=== PATIENT | female | born 2005 | race Caucasian/White ===

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

== ENCOUNTER 2024-01-05 09:34 | Outpatient (CLI) | payer OTHER, MEDICAID, SELFPAY | END 2024-01-05 09:35 | disposition home or self-care (01) | LOC: ANHLAB 09:36 | PROVIDERS: PCP Pediatrics; Visit Provider Obstetrics & Gynecology | DX: N91.2 Amenorrhea, unspecified (principal) | CPT/HCPCS: 36415; 84702 ==

== ENCOUNTER 2024-01-08 11:08 | Outpatient (CLI) | payer OTHER, MEDICAID, SELFPAY | END 2024-01-08 11:09 | disposition home or self-care (01) | LOC: ANHLAB 11:09 | PROVIDERS: PCP Pediatrics; Visit Provider Obstetrics & Gynecology | DX: N91.2 Amenorrhea, unspecified (principal) | CPT/HCPCS: 36415; 84702 ==

== ENCOUNTER 2024-01-16 15:03 | Outpatient (CLI) | payer OTHER, MEDICAID, SELFPAY ==
--- NOTE | ~2024-01-16 | US_ITS ---
EXAMINATION: US OB <=14 wk fetus w TV DATE: 01/16/2024 15:34 INDICATION: Amenorrhea TECHNIQUE: Real-time pelvic ultrasound utilizing both a transvaginal and transabdominal probe was pe rformed. The interpreting radiologist was not present for the study. COMPARISON: None. FINDINGS: The uterus measures 8.6 x 4.4 x 6.2 cm. There is an intrauterine gestational sac. A yolk sac and fet al pole are identified. The crown rump length measures 8 mm, which correlates with an estimated gesta tional age of 6 weeks and 6 days. heart motion is identified measuring 134 beats per minute (bp m) by M-mode Doppler. The right ovary measures 3.1 x 1.8 x 2.9 cm. The left ovary measures 3.0 x 2.6 x 1.9 cm. 1.3 cm anech oic corpus luteum cyst in the left ovary. There is no free fluid in the pelvis. IMPRESSION: 1. Single living fetus with heart rate of 133 bpm. 2. Gestational age by ultrasound of 6 weeks 6 day(s) +/- 4 day(s) with ultrasound estimated date of delivery (KATHIE) of 09/04/2024. Reviewed, dictated and finalized at location A. IMPRESSION: 1. Single living fetus with heart rate of 133 bpm. 2. Gestational age by ultrasound of 6 weeks 6 day(s) +/- 4 day(s) with ultraso und estimated date of delivery (KATHIE) of 09/04/2024.
== END 2024-01-16 15:04 | disposition home or self-care (01) ==
LOC: MICIMG 15:04
PROVIDERS: PCP Obstetrics & Gynecology; Visit Provider Obstetrics & Gynecology
DX: N91.2 Amenorrhea, unspecified (principal); Z3A.01 Less than 8 weeks gestation of pregnancy
CPT/HCPCS: 76801; 76817

== ENCOUNTER 2024-02-19 13:25 | Outpatient (CLI) | payer OTHER, MEDICAID, SELFPAY ==
[2024-02-19 14:05] LABS: Basophils Percent Auto 0.2 % (0.2-1.2); Eosinophils Absolute Auto 0.1 K/mm3 (0-0.3); Hematocrit 39.9 % (37.0-47.0); Hemoglobin 13.1 g/dL (12.0-15.0); Immature Granulocyte Absolute 0.19 K/mm3 (0.00-0.031); Immature Granulocyte Percent A 1.6 % (0-0.5); Lymphocytes Absolute Auto 2.87 K/mm3 (0.9-3.2); Lymphocytes Percent Auto 24.7 % (18.3-44.2); Mean Corpuscular HGB Conc 32.8 g/dl (32-36); Mean Corpuscular Hemoglobin 29.6 pg (26-34); Mean Corpuscular Volume 90.1 fl (80-100); Mean Platelet Volume 9.6 fl (7.4-10.4); Monocytes Absolute Auto 0.8 K/mm3 (0.1-0.6); Monocytes Percent Auto 6.5 % (2.6-8.5); Neutrophils Absolute Auto 7.7 K/mm3 (1.3-6.7); Platelet Count Result 284 k/mm3 (150-375); Red Blood Count 4.43 M/mm3 (4.2-5.4); Red Cell Distribution Width 12.7 % (11.5-14.5); White Blood Count 11.6 K/mm3 (4.5-10.0)
[2024-02-19 14:57] LABS: HIV 1/2 Ab P24 Ag Result Negative (Negative)
[2024-02-19 15:24] LABS: Hepatitis B Surface Antigen Negative (Negative); Rubella IgG Antibody 51.5 IU/ML
[2024-02-20 13:17] LABS: Rapid Plasma Reagin Non-Reactive (NonReactive)
== END 2024-02-19 13:26 | disposition home or self-care (01) ==
PROVIDERS: PCP Obstetrics & Gynecology; Visit Provider Obstetrics & Gynecology
DX: N91.2 Amenorrhea, unspecified (principal)
CPT/HCPCS: 36415; 85025; 86592; 86644; 86703; 86747; 86762; 86787; 86850; 86900; 86901; 87077; 87086; 87186; 87340; G0432

== ENCOUNTER 2024-02-21 18:41 | Emergency (ER) | payer OTHER, MEDICAID, SELFPAY ==
--- NOTE | ~2024-02-21 | XR_ITS ---
CHEST RADIOGRAPH, PA AND LATERAL CLINICAL HISTORY: right chest wall pain . COMPARISON: 05/17/2023 and 07/03/2019 TECHNIQUE: PA and lateral views of the chest. FINDINGS The cardiomediastinal silhouette is unremarkable. Redemonstration of multiple right sided rib deformities. This is unchanged dating back to 2019. Additional findings within the right upper chest of bullous disease, also unchanged from 2020. The remainder of the lungs are clear. 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 The remainder of the lungs are clear. Reviewed, dictated and finalized at location A. IMPRESSION: Multiple right-sided rib deformities as well as right upper lobe bullous diseas e, unchanged from 2020. The remainder of the lungs are clear.
[2024-02-21 19:14] VITALS: BP 131/88; PULSE 104; RESP 18; TEMP 36.9; O2SAT 100
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
== END 2024-02-21 21:45 | disposition home or self-care (01) ==
PROVIDERS: Emergency Provider Preventive Medicine Aerospace Medicine; PCP Obstetrics & Gynecology
DX: O9A.211 Injury, poisoning and certain other consequences of external causes complicating pregnancy, first trimester (principal); R07.89 Other chest pain; Z3A.12 12 weeks gestation of pregnancy
CPT/HCPCS: 71046; 99283

== ENCOUNTER 2024-03-01 15:31 | Outpatient (CLI) | payer OTHER, MEDICAID, SELFPAY ==
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
== END 2024-03-01 15:32 | disposition home or self-care (01) ==
PROVIDERS: PCP Obstetrics & Gynecology; Visit Provider Chiropractor
DX: M54.2 Cervicalgia (principal)
CPT/HCPCS: 72052

== ENCOUNTER 2024-06-06 10:27 | Emergency (ER) | payer OTHER, SELFPAY ==
[2024-06-06] VITALS (8 sets, daily range): BP systolic 117–126; BP diastolic 68–75; PULSE 101–130; RESP 18–20; TEMP 36.8; O2SAT 97–100
--- NOTE | ~2024-06-06 | XR_ITS ---
EXAMINATION: XR chest 1V portable DATE: 06/06/2024 13:06 INDICATION: Cough. TECHNIQUE: A single frontal view of the chest was obtained. COMPARISON: Chest 2 views 02/21/2024 FINDINGS: There is no pneumonia, pleural effusion, or pneumothorax. The heart size is normal. Against seen are chronic right rib deformities. IMPRESSION: 1. No acute cardiopulmonary disease. Reviewed, dictated and finalized at location B. [employer]
[2024-06-06 13:11] LABS: Influenza A QL RT-PCR Negative (Negative); Influenza B QL RT-PCR Negative (Negative); RSV RNA, RT-PCR Negative (Negative); SARS-CoV-2 RNA PCR Negative (Negative)
[2024-06-06 13:33] LABS: Strep Group A RT-PCR NOT DETECTED (Negative)
--- NOTE | 2024-06-06 13:45 | ED.GENADULT ---
HPI - General Adult General Chief complaint: Shortness of Breath/Dyspnea Stated complaint: SOB,back pain, 6mo preg Time Seen by Provider: 06/06/24 12:42 History of Present Illness HPI narrative: Patient is a 18-year-old female who presents emergency department with chief complaint of cough. Patient reports that for the last several days she has been having a cough has been productive of sputum. The patient reports that she has had a sore throat runny nose reports that she had a family member that recently had pneumonia. Patient states that the symptoms have not been improving and she Dr. PARHAM and she is 27 weeks and they told her to come to the emergency department. Related Data Allergies Allergy/AdvReac Type Severity Reaction Status Date / Time levonorgestrel (From Plan B) Allergy Mild Itching Verified 06/03/24 15:18 Review of Systems Review of Systems: A 10 system review of systems was completed on the patient and is negative except for what is stated in the HPI. Nursing and ancillary documentation was reviewed. PMFSH Past Medical History Medical History UTI (urinary tract infection) Irregular periods Skin lesion Pancreatitis Family History Family History Grandparent Cancer of kidney paternal grandmother Social History Social History Smoking status: Never smoker Second hand tobacco smoke exposure: Yes Alcohol intake: never Substance use: never Substance use type: does not use Do You Feel Safe in your Home?: Yes Lack of Transportation: No Lack of Food: Never True Current Housing: I Have Housing Concerned About Future Housing: No Difficulty Paying Gas/Electric Bills: No Difficulty Paying for Meds: No Currently Unemployed: No Education: High School Diploma/GED Difficulty w/ Childcare or Family Care: No Living arrangements: with family Additional living arrangements comments: lives with parents Occupation/Education: occupation 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 HEAD: Normocephalic, atraumatic. EYES: PERRLA and EOMI. ENT: Nares clear, no rhinorrhea or epistaxis. Mucous membranes moist. NECK: Supple. CHEST: Clear to auscultation. No respiratory distress. HEART: Regular rate and rhythm. No murmur heard. Normal peripheral pulses. ABDOMEN: Soft, nontender, nondistended, normal active bowel sounds. EXTREMITIES: Normal range of motion. No edema. SKIN: Warm, dry, no rash. NEURO: No focal deficits. Alert and oriented x3. PSYCH: Normal mood and affect. Course Vital Signs Vital signs: Vital Signs Temperature 36.8 C 06/06/24 10:44 Pulse Rate 130 H 06/06/24 10:44 Respiratory Rate 20 06/06/24 10:44 Blood Pressure 126/75 06/06/24 10:44 Pulse Oximetry 100 06/06/24 10:44 Oxygen Delivery Room Air 06/06/24 10:44 Temperature 36.8 C 06/06/24 10:44 Pulse Rate 130 H 06/06/24 10:44 Respiratory Rate 20 06/06/24 10:44 Blood Pressure 126/75 06/06/24 10:44 Pulse Oximetry 100 06/06/24 10:44 Oxygen Delivery Room Air 06/06/24 10:44 Medical Decision Making MDM Narrative Medical decision making narrative: Differential diagnosis includes pneumonia, upper respiratory infection, strep pharyngitis Strep was negative COVID flu and RSV were negative Chest x-ray showed no focal infiltrate Vital Signs Vital Signs: Vital Signs Temperature 36.8 C 06/06/24 10:44 Pulse Rate 130 H 06/06/24 10:44 Respiratory Rate 20 06/06/24 10:44 Blood Pressure 126/75 06/06/24 10:44 Pulse Oximetry 100 06/06/24 10:44 Oxygen Delivery Room Air 06/06/24 10:44 Temperature 36.8 C 06/06/24 10:44 Pulse Rate 130 H 06/06/24 10:44 Respiratory Rate 20 06/06/24 10:44 Blood Pressure 126/75 06/06/24 10:44 Pulse Oximetry 100 06/06/24 10:44 Oxygen Delivery Room Air 06/06/24 10:44 Lab Data Labs: Lab Results 06/06/24 06/06/24 Range/Units 12:30 13:01 Influenza A (RT-PCR) Negative (Negative) Influenza B (RT-PCR) Negative (Negative) RSV (RT-PCR) Negative (Negative) SARS-CoV-2 RNA (RT-PCR) Negative (Negative) Group A Strep (PCR) Not detected (Negative) Discharge Plan Discharge Clinical Impression: Acute upper respiratory infection Patient Disposition: Home, Self-Care Condition: Stable Instructions: Antibiotic Form, Upper Respiratory Infection (ED) Patient Language: Danish Prescriptions: No Action acyclovir 400 mg tablet 400 mg PO TID Qty: 21 3RF nitrofurantoin macrocrystal [Macrodantin] 50 mg capsule 50 mg PO DAILY Qty: 90 1RF Rx Instructions: must administer with a meal/food azithromycin [Zithromax] 250 mg tablet See Rx Instructions PO .COMPLEX Qty: 6 0RF Rx Instructions: For 250 mg dose pack: take 500 mg today (day 1), then 250 mg for 4 days (days 2-5) PO Follow-up/Referrals: Jad Samson MD [Primary Care Provider] - Stand Alone Forms: Work/School Release IP Time of Disposition: 13:48
--- OUTSIDE RECORDS SUMMARY | 2024-06-07 05:06 | XMS_ITS | Clinical Summary ---
Author Organization [facility] Address [address] [place] [address] Care Team Providers Care Medical Practitioners Name Role Phone Douglas Shah MD Primary Care Provider [phone] Source Comments [facility],non-owned Affiliates and Associated Physician Practices is amultiple site organization consisting of ambulatory clinics and hospital sitesin [place], [place], [place] and [place]. This disclosure is being madepursuant to the Care Everywhere program and may not contain all information available regarding this patient. Last updated 18.[employer] Allergies No known active allergies Medications Be aware that medications may not be up to date on this document. Always verify current medications with the patient. No known medications Active Problems Problem Noted Date Diagnosed Date Acute pancreatitis 07/08/2010 Overview (07/11/2010): 4 yo with acute pancreatitis, no previous history of pancreatits. 1. Pain controlled - pt w/o pain med use overnight 4. Repeat lipase, amylase WNL 5. Abdominal US -- enlarged pancreatic head 6. Advanced to clears will cont. To advance diet as tolerated Hypercalcemia 07/08/2010 Overview (07/09/2010): 4 yo with mildly elevated Calcium will recheck level in am - ionized Ca WNL Constipation 07/08/2010 Overview (07/09/2010): 4 yo with constipation recently treated with laxatives. KUB from OSH with moderate amts of fecal material 1. Continue IVF for pancreatits, 2, Observe for BMs 3. Consider treating with miralax if abdominal pain persists and after pancreatitis resolves Family History Medical History Relation Name Comments Kidney Disease Sister Kidney reflux Relation Name Status Comments Sister Social History Tobacco Use Types Packs/Day Years Used Date Smoking Tobacco: Never Assessed Alcohol Use Standard Drinks/Week Comments No 0 (1 standard drink = 0.6 oz pur e alcohol) Sex and Gender Information Value Date Recorded Sex Assigned at Not on file Gender Identity Not on file Sexual Orientation Not on file Last Filed Vital Signs Vital Sign Reading Time Taken Comments Blood Pressure 104/54 08/02/2010 1:04 PM CDT 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 Temperature 36.6 ??C (97.8 ??F) 07/11/2010 9:15 AM CS T Respiratory Rate 24 07/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 Oxygen Saturation - - Inhaled Oxygen Concentration - - Weight 20.4 kg (44 lb 14.4 oz) 08/02/2010 1:04 P M CDT Height 117.2 cm (3' 10.14 ) 08/02/2010 1:04 PM C DT Ecqfpz-coe-Cghrft Percentile 34.06% 08/02/2010 1 :04 PM CDT Growth Chart: CDC (Girls, 2- 20 Years) Body Mass Index 14.83 08/02/2010 1:04 PM CDT Body Mass Index Percentile 39.27% 08/02/2010 1:0 4 PM CDT Growth Chart: CDC (Girls, 2- 20 Years) Plan of Treatment Health Maintenance Due Date Last Done Comments HIV SCREENING 09/24/2019 HPV VACCINE (1 - 3-dose series) 09/24/2019 CHLAMYDIA/GONORRHEA SCREENING 2020 MENINGOCOCCAL (Group B) VACC INE (1 of 2 - Standard) 2020 HEPATITIS C SCREENING 09/19/2022 DTAP/TDAP/TD VACCINES (1 - Tdap) 09/24/2023 HEPATITIS B VACCINE (1 of 3 - 19+ 3-dose series) 09/24/2023 COVID-19 VACCINE (1 - 2023-2 5 season) 2024 INFLUENZA VACCINE (#1) 2024 DEPRESSION SCREENING 05/15/2024 ZOSTER VACCINE (1 of 2) 2054 HIB VACCINE Aged Out No longer eligi ble based on patient's age to complete this topic MENINGOCOCCAL VACCINE Aged Out No dez siomara eligible based on patient's age to complete this topic PNEUMOCOCCAL VACCINE Aged Out No long er eligible based on patient's age to complete this topic Care Teams Medical Practitioners Relationship Specialty Start Date End Date Douglas Shah MD [address] [place] [address] PCP - General 07/08/10
--- OUTSIDE RECORDS SUMMARY | 2024-06-07 05:06 | XMS_ITS | Continuity of Care Document ---
Author Organization [facility] Address [address] [place] [address] [address] [place] [address] Phone Care Team Providers Care Front Office Manager Name Role Phone Mobley OD, Gianni Unavailable Unavailable Procedures Procedure Date Eye Exam, New Patient Refraction Advance Directives Directive Yes / No Effective Date File Name No Information Encounters Encounter Description Practice Location Reason(s) For Visit Diagnoses Date Provider Providers Copied on Encounter [facility], [address], [place], [place], [id number], [place] tel:[phone] [facility] [place] No Information [phone] Mobley OD Gianni. [address] [place] , [address], [place], [address], [place]. tel:[phone] Family History Family Member Type Diagnosis Age At Onset No Information Payers Payer name Insurance type Covered green party ID Authoriza tion(s) Medicaid [facility] [id number] Social History Type Description Quantity Date Captured [...]
--- OUTSIDE RECORDS SUMMARY | 2024-06-07 05:06 | XMS_ITS | Referral Summary ---
Author Organization [employer] Address [address] [place] [address] Care Team Providers Care Meteorology Faculty Member Name Role Phone Douglas Shah MD Primary Care Provider [phone] Source Comments [facility] [employer] [facility],non-owned Affiliates and Associated Physician Practices is amultiple site organization consisting of ambulatory clinics and hospital sitesin [place], [place], [place] and [place]. This disclosure is being madepursuant to the Care Everywhere program and may not contain all information available regarding this patient. Last updated 18.[employer] 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
--- OUTSIDE RECORDS SUMMARY | 2024-06-07 05:06 | XMS_ITS | Patient Health Summary ---
Author Organization [facility] Address [address] [place] [address] Care Team Providers Care Polymerization Kettle Operator Name Role Phone Douglas Shah MD Primary Care Provider [phone] Note from [facility],non-owned Affiliates and Associated Physician Practices is amultiple site organization consisting of ambulatory clinics and hospital sitesin [place], [place], [place] and [place]. This disclosure is being madepursuant to the Care Everywhere program and may not contain all information available regarding this patient. Last updated 18.[facility] Allergies No known active allergies Medications Be aware that medications may not be up to date on this document. Always verify current medications with the patient. No known medications Active Problems Problem Noted Date Diagnosed Date Acute pancreatitis 07/08/2010 Hypercalcemia 07/08/2010 Constipation 07/08/2010 Social History Tobacco Use Types Packs/Day Years [...] PM CDT Pulse 102 07/11/2010 9:15 AM PRODUCTION SUPPORT ANALYST Temperature 36.6 ??C (97.8 ??F) 07/11/2010 9:15 AM CS T Respiratory Rate 24 07/11/2010 9:15 AM PRODUCTION SUPPORT ANALYST Oxygen Saturation - - Inhaled Oxygen Concentration - - Weight 20.4 kg (44 lb 14.4 oz) 08/02/2010 1:04 P M CDT Height 117.2 cm (3' 10.14 ) 08/02/2010 1:04 PM C DT Gibozn-zno-Fdplsx Percentile 34.06% 08/02/2010 1 :04 PM CDT Growth Chart: CDC (Girls, 2- 20 Years) Body Mass Index 14.83 08/02/2010 1:04 PM CDT Body Mass Index Percentile 39.27% 08/02/2010 1:0 4 PM CDT Growth Chart: [facility] (Girls, 2- 20 Years) Procedures * LAB RESULTS ORDER(Performed 07/13/2010) * XOCHITL-AMADOR VIRUS AB TO NUCLEAR AG IGG(Performed 07/11/2010) * CMV ANTIGENEMIA PANEL(Performed 07/11/2010) * AMYLASE BLOOD(Performed 07/10/2010) * LIPID PROFILE(Performed 07/10/2010) * LIPASE BLOOD(Performed 07/10/2010) * US ABDOMEN LIMITED(Performed 07/09/2010) Performed for Acute pancreatitis (HCC) * CALCIUM IONIZED BLOOD(Performed 07/09/2010) * AMYLASE BLOOD(Performed 07/09/2010) * LIPASE BLOOD(Performed 07/09/2010) Results * LAB RESULTS ORDER (07/13/2010 11:57 AM PRODUCTION SUPPORT ANALYST) Narrative Procedure Note Document, Scanned - 07/12/2010 4:34 PM PRODUCTION SUPPORT ANALYST Scanned Document LAB - THERAPEUTIC DR CURTIS MONITORING ORDERABLES * CMV ANTIGENEMIA PANEL (07/11/2010 11:00 AM PRODUCTION SUPPORT ANALYST) Cytomegalovirus Antigenemia Negative direct immunofluorescence of white blood cells for cytomegalovirus (CMV) antigen. Failure to detect CMV antigenemia does not rule out CMV infection. Negative [facility] Interpretation Cytomegalovirus Antigenemia [facility] Comment: NOTE ??Absolute CMV antigenemia values or breakpoints for symptomatic disease have not been established and appear to be different among patient populations. ??Therefore, it is important to monitor patients and to follow rises and/or falls in the level of antigen-positive cells in multiple blood specimens. 1-10 positive cells is a low level of CMV antigenemia; Usually associated with asymptomatic or early CMV infection or reactivation. 11-50 positive cells is an intermediate level of CMV antigenemia; May be predictive of CMV disease. >50 positive cells is a high level of CMV antigenemia; Usually predictive of CMV disease. BLOOD SPECIMEN / Unknown 07/11/2010 11:00 AM PRODUCTION SUPPORT ANALYST 07/11/2010 11:06 AM PRODUCTION SUPPORT ANALYST Marsha Issa MD LAB - SEROLOGY ORDER OTTO Performing Organization Address City/[facility]/ZIP Co de Phone Number [facility] [address] [place] [address] * XOCHITL-BAR VIRUS ANTIBODY TO NUCLEAR ANTIGEN (07/11/2010 11:00 AM PRODUCTION SUPPORT ANALYST) Xochitl-Amador Virus Antibody IgG Nuclear Antigen >1-10 Seropositive Less than 1-10 [facility] BLOOD SPECIMEN / Unknown 07/11/2010 11:00 AM PRODUCTION SUPPORT ANALYST 07/11/2010 11:06 AM PRODUCTION SUPPORT ANALYST Marsha Issa MD LAB - CHEMISTRY ORDE NERY Performing Organization Address [facility] Co de Phone Number [facility] [address] [place] [address] * LIPASE BLOOD (07/10/2010 1:10 PM PRODUCTION SUPPORT ANALYST) Only the most recent of2 resultswithin the time period is included. Lipase 165 23 - 300 Units/L [facility] BLOOD SPECIMEN / Unknown 07/10/2010 1:10 PM PRODUCTION SUPPORT ANALYST 07/10/2010 1:10 PM PRODUCTION SUPPORT ANALYST Radha Jordan MD LAB - CHEMISTRY CHRISTI GABRIEL Performing Organization Address [facility] Co de Phone Number [facility] [address] [place] [address] * AMYLASE BLOOD (07/10/2010 1:10 PM PRODUCTION SUPPORT ANALYST) Only the most recent of2 resultswithin the time period is included. Amylase 67 30 - 100 Units/L [facility] BLOOD SPECIMEN / Unknown 07/10/2010 1:10 PM PRODUCTION SUPPORT ANALYST 07/10/2010 1:10 PM PRODUCTION SUPPORT ANALYST Radha Jordan MD LAB - CHEMISTRY ORDFabio GABRIEL Performing Organization Address City/[facility]/ZIP Co de Phone Number [facility] [address] [place] [address] * (ABNORMAL) LIPID PROFILE (07/10/2010 1:10 PM PRODUCTION SUPPORT ANALYST) Cholesterol 143 < 200 mg/dl mg/dl [facility] Triglycerides 94 < 150 mg/dl mg/dl [facility] HDL Cholesterol 39(L) > 40 mg/dl mg/dl [facility] LDL Calculated 85 < 100 mg/dl mg/dl [facility] Chol HDL Ratio 3.7 [facility] Comment Lipid Reference Ranges provided by [place] [facility] [employer]. [facility] BLOOD SPECIMEN / Unknown 07/10/2010 1:10 PM PRODUCTION SUPPORT ANALYST 07/10/2010 1:10 PM PRODUCTION SUPPORT ANALYST Radha Jordan MD LAB - CHEMISTRY CHRISTI GABRIEL [facility] [address] [facility] [place] [address] * US ABDOMEN LIMITED (07/09/2010 11:33 AM PRODUCTION SUPPORT ANALYST) Anatomical Region Laterality Modality Abdomen Ultrasound 07/09/2010 12:1 0 PM PRODUCTION SUPPORT ANALYST Narrative 07/09/2010 12:19 PM PRODUCTION SUPPORT ANALYST Exam: Abdominal sonogram Date: ??07/09/2010 The liver demonstrates increased periportal echogenicity. The gallbladder, spleen, kidneys, and visible retroperitoneal great vessels are normal. The common bile duct measures 0.2 cm in diameter. The right kidney measures 8.3 cm in length and is normal in appearance. The pancreatic duct is normal in size, measuring 0.2 cm in diameter. The pancreas is enlarged, especially the head which measures approximately 2.7 x 2.2 cm in diameter. There is decreased echogenicity of the pancreatic head and neck when compared to the pancreatic tail.No focal pancreatic mass is seen. ??No peripancreatic fluid is present. ??A lymph node anterior to the inferior vena cava measures 0.5 cm in diameter. There is no evidence of ascites. Diagnosis: Increased periportal echogenicity suggesting hepatitis. ??This finding can also be seen in patients who have hypo albuminuria, CHF, or overhydration. Enlarged pancreas consistent with history of pancreatitis. ??Increased pancreatic head side with decreased echogenicity consistent with same. No evidence of gallstones, pancreatic mass, pancreatic ductal dilatation, or peripancreatic fluid collection. D: Jake Reeves MD Procedure Note Perla Green MD - 07/09/2010 Exam: Abdominal sonogram Date: 07/09/2010 The liver demonstrates increased periportal echogenicity. The gallbladder, spleen, kidneys, and visible retroperitoneal great vessels are normal. The common bile duct measures 0.2 cm in diameter. The right kidney measures 8.3 cm in length and is normal in appearance. The pancreatic duct is normal in size, measuring 0.2 cm in diameter. The pancreas is enlarged, especially the head which measures approximately 2.7 x 2.2 cm in diameter. There is decreased echogenicity of the pancreatic head and neck when compared to the pancreatic tail.No focal pancreatic mass is seen. No peripancreatic fluid is present. A lymph node anterior to the inferior vena cava measures 0.5 cm in diameter. There is no evidence of ascites. Diagnosis: Increased periportal echogenicity suggesting hepatitis. This finding can also be seen in patients who have hypo albuminuria, CHF, or overhydration. Enlarged pancreas consistent with history of pancreatitis. Increased pancreatic head side with decreased echogenicity consistent with same. No evidence of gallstones, pancreatic mass, pancreatic ductal dilatation, or peripancreatic fluid collection. D: Jake Reeves MD Radha Jordan MD ORDERABLES * CALCIUM IONIZED BLOOD (07/09/2010 5:35 AM PRODUCTION SUPPORT ANALYST) pH 7.389 7.35-7.45 (art) [facility] Calcium Ionized 1.26 mmol/L [facility] Calcium Ionized Adjusted 1.25 1.15 - 1.29 mmol/L [facility] Specimen Type/Condition Blood Gas Cap/ABL [facility] BLOOD SPECIMEN SUBMITTED IN HEPARINIZED COLLECTION TUBE / Unknown 07/09/2010 5:35 AM PRODUCTION SUPPORT ANALYST 07/09/2010 5:48 AM PRODUCTION SUPPORT ANALYST Radha Jordan MD LAB - CHEMISTRY CHRISTI GABRIEL [facility] Organization Address City/State/ZIP Co de Phone Number [facility] [address] [place] [address] Care Teams Polymerization Kettle Operator Relationship Specialty Start Date End Date Douglas Shah MD [address] [place] [address] PCP - General 07/08/10
--- OUTSIDE RECORDS SUMMARY | 2024-06-07 05:06 | XMS_ITS | CONTINUITY OF CARE DOCUMENT ---
Author Name [email or web address] Address Unknown Organization [facility] Address [address] [place] [address] Phone [phone] Care Team Providers Care Religion Department Chair Name Role Phone Shahid OSEGUERA, Eloy Unavailable [phone] VALERIA SOLIS MD Unavailable VALERIA SOLIS MD Unavailable INSURANCE PROVIDERS Payer name Policy type / Coverage type [place] red constitution party ID [facility] CHOICE PLUS Commercial insuran company [id number] HEALTHCARE AND FAMILY SERVICES Medicaid 1 [id number]
== END 2024-06-06 14:18 | disposition home or self-care (01) ==
PROVIDERS: Emergency Medicine; Emergency Provider Emergency Medicine; PCP Obstetrics & Gynecology
DX: O99.512 Diseases of the respiratory system complicating pregnancy, second trimester (principal); J06.9 Acute upper respiratory infection, unspecified; Z3A.27 27 weeks gestation of pregnancy; Z20.822 Contact with and (suspected) exposure to COVID-19
CPT/HCPCS: 71045; 87637; 87651; 99283

== ENCOUNTER 2024-06-13 09:40 | Outpatient (CLI) | payer OTHER, SELFPAY ==
--- OUTSIDE RECORDS SUMMARY | 2024-06-13 10:14 | XMS_ITS | Clinical Summary ---
Author Organization [facility] [employer] Address [address] [place] [address] Care Team Providers Care Programmable Logic Controller Assembler Name Role Phone Douglas Shah MD Primary Care Provider [phone] Source Comments [facility] [employer] [employer],non-owned Affiliates and Associated Physician Practices is amultiple site organization consisting of ambulatory clinics and hospital sitesin [place], [place], [place] and [place]. This disclosure is being madepursuant to the Care Everywhere program and may not contain all information available regarding this patient. Last updated 18.[employer] Allergies No known active allergies Medications Be [...] PM CDT Pulse 102 07/11/2010 9:15 AM SLITTING AND SHIPPING SUPERVISOR Temperature 36.6 ??C (97.8 ??F) 07/11/2010 9:15 AM CS T Respiratory Rate 24 07/11/2010 9:15 AM SLITTING AND SHIPPING SUPERVISOR Oxygen Saturation - - Inhaled Oxygen Concentration - - Weight 20.4 kg (44 lb 14.4 oz) 08/02/2010 1:04 P M CDT Height 117.2 cm (3' 10.14 ) 08/02/2010 1:04 PM C DT Rkavku-bqp-Llzntn Percentile 34.06% 08/02/2010 1 :04 PM CDT [...] age to complete this topic Care Teams Programmable Logic Controller Assembler Relationship Specialty Start Date End Date Douglas Shah MD [address] [place] [address] PCP - General 07/08/10
--- OUTSIDE RECORDS SUMMARY | 2024-06-13 10:14 | XMS_ITS | Referral Summary ---
Author Organization [facility] [employer] Address [address] [place] [address] Care Team Providers Care Building Rental Manager Name Role Phone Douglas Shah MD Primary Care Provider [phone] Source Comments [facility],non-owned Affiliates and Associated Physician Practices is amultiple site organization consisting of ambulatory clinics and hospital sitesin [place], [place], [place] and [place]. This disclosure is being madepursuant to the Care Everywhere program and may not contain all information available regarding this patient. Last updated 18.[employer] Allergies No known active allergies Medications Be [...] PM CDT Pulse 102 07/11/2010 9:15 AM ECONOMIC RESEARCH ASSISTANT Temperature 36.6 ??C (97.8 ??F) 07/11/2010 9:15 AM CS T Respiratory Rate 24 07/11/2010 9:15 AM ECONOMIC RESEARCH ASSISTANT Oxygen Saturation - - Inhaled Oxygen Concentration - - Weight 20.4 kg (44 lb 14.4 oz) 08/02/2010 1:04 P M CDT Height 117.2 cm (3' 10.14 ) 08/02/2010 1:04 PM C DT Rxneed-lof-Oinitg Percentile 34.06% 08/02/2010 1 :04 PM CDT Growth Chart: CDC (Girls, 2- 20 Years) Body Mass Index 14.83 08/02/2010 1:04 PM CDT Body Mass Index Percentile 39.27% 08/02/2010 1:0 4 PM CDT Growth Chart: CDC (Girls, 2- 20 Years) Plan of Treatment Not on file Care Teams Building Rental Manager Relationship Specialty Start Date End Date Douglas Shah MD [address] [address] PCP - General 07/08/10
--- OUTSIDE RECORDS SUMMARY | 2024-06-13 10:14 | XMS_ITS | Continuity of Care Document ---
Author Organization [facility] Address [address] [place] [address] [address] [place] [address] Phone Care Team Providers Care Manager Specialty Name Role Phone Mobley OD, Gianni Unavailable Unavailable Procedures Procedure Date Eye Exam, New Patient Refraction Advance Directives Directive Yes / No Effective Date File Name No Information Encounters Encounter Description Practice Location Reason(s) For Visit Diagnoses Date Provider Providers Copied on Encounter [facility], [address], [place], [place], [id number], [place] tel:[phone] [facility] [place] No Information 1-201 0 Mobley OD Gianni. [address] [place] , [address], [place], [address], [place]. tel:[phone] Family History Family Member Type Diagnosis Age At Onset No Information Payers Payer name Insurance type Covered libertarian ID Authoriza tion(s) Medicaid [facility] [id number] Social History Type Description Quantity Date Captured [...]
--- OUTSIDE RECORDS SUMMARY | 2024-06-13 10:14 | XMS_ITS | Patient Health Summary ---
Author Organization [facility] [employer] Address [address] [place] [address] Care Team Providers Care Roller Leveler Name Role Phone Douglas Shah MD Primary Care Provider [phone] Note from [facility],non-owned Affiliates and Associated Physician Practices is amultiple site organization consisting of ambulatory clinics and hospital sitesin [place], [place], [place] and [place]. This disclosure is being madepursuant to the Care Everywhere program and may not contain all information available regarding this patient. Last updated 18.[facility] [employer] Allergies No known active allergies Medications Be [...] PM CDT Pulse 102 07/11/2010 9:15 AM STOVE CARRIAGE OPERATOR Temperature 36.6 ??C (97.8 ??F) 07/11/2010 9:15 AM CS T Respiratory Rate 24 07/11/2010 9:15 AM STOVE CARRIAGE OPERATOR Oxygen Saturation - - Inhaled Oxygen Concentration - - Weight 20.4 kg (44 lb 14.4 oz) 08/02/2010 1:04 P M CDT Height 117.2 cm (3' 10.14 ) 08/02/2010 1:04 PM C DT Hgvoqt-cgi-Ibmccy Percentile 34.06% 08/02/2010 1 :04 PM CDT Growth Chart: CDC (Girls, 2- 20 Years) Body Mass Index 14.83 08/02/2010 1:04 PM CDT Body Mass Index Percentile 39.27% 08/02/2010 1:0 4 PM CDT Growth Chart: [facility] (Girls, 2- 20 Years) Procedures * LAB [...] * LAB RESULTS ORDER (07/13/2010 11:57 AM STOVE CARRIAGE OPERATOR) Narrative Procedure Note Document, Scanned - 07/12/2010 4:34 PM STOVE CARRIAGE OPERATOR Scanned Document LAB - THERAPEUTIC DR CURTIS MONITORING ORDERABLES * CMV ANTIGENEMIA PANEL (07/11/2010 11:00 AM STOVE CARRIAGE OPERATOR) Cytomegalovirus Antigenemia Negative direct immunofluorescence of white blood cells for cytomegalovirus (CMV) antigen. Failure to detect CMV antigenemia does not rule out CMV infection. Negative [facility] Interpretation Cytomegalovirus Antigenemia [facility] Comment: NOTE ??Absolute CMV antigenemia values [...] BLOOD SPECIMEN / Unknown 07/11/2010 11:00 AM STOVE CARRIAGE OPERATOR 07/11/2010 11:06 AM STOVE CARRIAGE OPERATOR Marsha Issa MD LAB - SEROLOGY ORDER OTTO Performing Organization Address City/[facility]/ZIP Co de Phone Number [facility] [address] [place] [address] * XOCHITL-BAR VIRUS ANTIBODY TO NUCLEAR ANTIGEN (07/11/2010 11:00 AM STOVE CARRIAGE OPERATOR) Xochitl-Amador Virus Antibody IgG Nuclear Antigen >1-10 Seropositive Less than 1-10 [facility] BLOOD SPECIMEN / Unknown 07/11/2010 11:00 AM STOVE CARRIAGE OPERATOR 07/11/2010 11:06 AM STOVE CARRIAGE OPERATOR Marsha Issa MD LAB - CHEMISTRY ORDE NERY Performing Organization Address [facility] Co de Phone Number [facility] [address] [place] [address] * LIPASE BLOOD (07/10/2010 1:10 PM STOVE CARRIAGE OPERATOR) Only the most recent of2 resultswithin the time period is included. Lipase 165 23 - 300 Units/L [facility] BLOOD SPECIMEN / Unknown 07/10/2010 1:10 PM STOVE CARRIAGE OPERATOR 07/10/2010 1:10 PM STOVE CARRIAGE OPERATOR Radha Jordan MD LAB - CHEMISTRY CHRISTI GABRIEL Performing Organization Address [facility] Co de Phone Number [facility] [address] [place] [address] * AMYLASE BLOOD (07/10/2010 1:10 PM STOVE CARRIAGE OPERATOR) Only the most recent of2 resultswithin the time period is included. Amylase 67 30 - 100 Units/L [facility] BLOOD SPECIMEN / Unknown 07/10/2010 1:10 PM STOVE CARRIAGE OPERATOR 07/10/2010 1:10 PM STOVE CARRIAGE OPERATOR Radha Jordan MD LAB - CHEMISTRY ORDFabio GABRIEL Performing Organization Address City/[facility]/ZIP Co de Phone Number [facility] [address] [place] [address] * (ABNORMAL) LIPID PROFILE (07/10/2010 1:10 PM STOVE CARRIAGE OPERATOR) Cholesterol 143 < 200 mg/dl mg/dl [facility] Triglycerides 94 < 150 mg/dl mg/dl [facility] HDL Cholesterol 39(L) > 40 mg/dl mg/dl [facility] LDL Calculated 85 < 100 mg/dl mg/dl [facility] Chol HDL Ratio 3.7 [facility] Comment Lipid Reference Ranges provided by [employer] [place] [facility] [employer]. [facility] BLOOD SPECIMEN / Unknown 07/10/2010 1:10 PM STOVE CARRIAGE OPERATOR 07/10/2010 1:10 PM STOVE CARRIAGE OPERATOR Radha Jordan MD LAB - CHEMISTRY CHRISTI GABRIEL [facility] [address] [facility] [place] [address] * US ABDOMEN LIMITED (07/09/2010 11:33 AM STOVE CARRIAGE OPERATOR) Anatomical Region Laterality Modality Abdomen Ultrasound 07/09/2010 12:1 0 PM STOVE CARRIAGE OPERATOR Narrative 07/09/2010 12:19 PM STOVE CARRIAGE OPERATOR Exam: Abdominal sonogram Date: ??07/09/2010 The liver [...] * CALCIUM IONIZED BLOOD (07/09/2010 5:35 AM STOVE CARRIAGE OPERATOR) pH 7.389 7.35-7.45 (art) [facility] Calcium Ionized 1.26 mmol/L [facility] Calcium Ionized Adjusted 1.25 1.15 - 1.29 mmol/L [facility] Specimen Type/Condition Blood Gas Cap/ABL [facility] BLOOD SPECIMEN SUBMITTED IN HEPARINIZED COLLECTION TUBE / Unknown 07/09/2010 5:35 AM STOVE CARRIAGE OPERATOR 07/09/2010 5:48 AM STOVE CARRIAGE OPERATOR Radha Jordan MD LAB - CHEMISTRY CHRISTI GABRIEL [facility] Organization Address City/State/ZIP Co de Phone Number [facility] [address] [place] [address] Care Teams Roller Leveler Relationship Specialty Start Date End Date Douglas Shah MD [address] [place] [address] PCP - General 07/08/10
[2024-06-13 11:02] LABS: Basophils Absolute Auto 0.1 K/mm3 (0.0-0.1); Basophils Percent Auto 0.5 % (0.2-1.2); Eosinophils Absolute Auto 0.2 K/mm3 (0-0.3); Eosinophils Percent Auto 1.2 % (0-4.4); Hematocrit 34.6 % (37.0-47.0); Hemoglobin 11.5 g/dL (12.0-15.0); Immature Granulocyte Absolute 0.58 K/mm3 (0.00-0.031); Immature Granulocyte Percent A 4.5 % (0-0.5); Lymphocytes Absolute Auto 2.84 K/mm3 (0.9-3.2); Mean Corpuscular HGB Conc 33.2 g/dl (32-36); Mean Corpuscular Hemoglobin 30.1 pg (26-34); Mean Corpuscular Volume 90.6 fl (80-100); Mean Platelet Volume 9.9 fl (7.4-10.4); Monocytes Absolute Auto 0.5 K/mm3 (0.1-0.6); Neutrophils Absolute Auto 8.8 K/mm3 (1.3-6.7); Neutrophils Percent Auto 67.8 % (45.5-73.1); Platelet Count Result 263 k/mm3 (150-375); Red Blood Count 3.82 M/mm3 (4.2-5.4); Red Cell Distribution Width 12.7 % (11.5-14.5); White Blood Count 12.9 K/mm3 (4.5-10.0)
[2024-06-13 11:59] LABS: HIV 1/2 Ab P24 Ag Result Negative (Negative)
[2024-06-13 21:38] LABS: Glucose 1 Hour PP 50gm Dose 151 mg/dL
[2024-06-14 13:21] LABS: Rapid Plasma Reagin Non-Reactive (NonReactive)
== END 2024-06-13 09:41 | disposition home or self-care (01) ==
PROVIDERS: PCP Obstetrics & Gynecology; Visit Provider Obstetrics & Gynecology
DX: N39.0 Urinary tract infection, site not specified (principal); Z34.90 Encounter for supervision of normal pregnancy, unspecified, unspecified trimester; Z3A.00 Weeks of gestation of pregnancy not specified
CPT/HCPCS: 36415; 82947; 85025; 86592; 86703; 87086; G0432

== ENCOUNTER 2024-06-18 09:54 | Outpatient (RCR) | payer OTHER, MEDICAID, SELFPAY ==
[2024-06-18 10:32] VITALS: BP 107/64; PULSE 97
== END 2024-07-14 23:59 | disposition home or self-care (01) ==
LOC: ANHOBOP 09:54
PROVIDERS: PCP Obstetrics & Gynecology; Visit Provider Obstetrics & Gynecology
DX: O36.8190 Decreased fetal movements, unspecified trimester, not applicable or unspecified (principal)
CPT/HCPCS: 59025

== ENCOUNTER 2024-06-20 07:51 | Outpatient (CLI) | payer OTHER, SELFPAY ==
--- OUTSIDE RECORDS SUMMARY | 2024-06-20 07:56 | XMS_ITS | Continuity of Care Document ---
Author Organization [facility] Address [address] [place] [address] [address] [place] [address] Phone Care Team Providers Care Fisher Terrapin Name Role Phone Mobley OD, Gianni Unavailable Unavailable Procedures Procedure Date Eye Exam, New Patient Refraction Advance Directives Directive Yes / No Effective Date File Name No Information Encounters Encounter Description Practice Location Reason(s) For Visit Diagnoses Date Provider Providers Copied on Encounter [facility], [address], [place], [place], [id number], [place] tel:[phone] [facility] No Information 1-201 0 Mobley OD Gianni. [address] , [address], [place], [address], [place]. tel:[phone] Family History Family Member Type Diagnosis Age At Onset No Information Payers Payer name Insurance type Covered constitution party ID Authoriza tion(s) Medicaid [facility] [id number] Social History Type Description Quantity Date Captured [...]
--- OUTSIDE RECORDS SUMMARY | 2024-06-20 07:56 | XMS_ITS | Clinical Summary ---
Author Organization [facility] Address [address] [place] [address] Care Team Providers Care Warp Doffer Name Role Phone Douglas Shah MD Primary Care Provider [phone] Source Comments [facility],non-owned Affiliates and Associated Physician Practices is amultiple site organization consisting of ambulatory clinics and hospital sitesin [place], [place], [place] and [place]. This disclosure is being madepursuant to the Care Everywhere program and may not contain all information available regarding this patient. Last updated 18.[employer] Allergies No known active allergies Medications Be [...] PM CDT Pulse 102 07/11/2010 9:15 AM SIGNAL TOWER OPERATOR Temperature 36.6 C (97.8 F) 07/11/2010 9:15 AM SIGNAL TOWER OPERATOR Respiratory Rate 24 07/11/2010 9:15 AM SIGNAL TOWER OPERATOR Oxygen Saturation - - Inhaled Oxygen Concentration - - Weight 20.4 kg (44 lb 14.4 oz) 08/02/2010 1:04 P M CDT Height 117.2 cm (3' 10.14 ) 08/02/2010 1:04 PM C DT Gznhlv-ort-Alknam Percentile 34.06% 08/02/2010 1 :04 PM CDT [...] - 19+ 3-dose series) 09/24/2023 COVID-19 VACCINE ( - 2023-2 5 season) 2024 INFLUENZA VACCINE [...] age to complete this topic Care Teams Warp Doffer Relationship Specialty Start Date End Date Douglas Shah MD [address] [place] [address] PCP - General 07/08/10
--- OUTSIDE RECORDS SUMMARY | 2024-06-20 07:56 | XMS_ITS | Referral Summary ---
Author Organization [facility] Address [address] [place] [address] Care Team Providers Care Fitness Sales Consultant Name Role Phone Douglas Shah MD Primary Care Provider [phone] Source Comments [facility],non-owned Affiliates and Associated Physician Practices is amultiple site organization consisting of ambulatory clinics and hospital sitesin [place], [place], [place] and [place]. This disclosure is being madepursuant to the Care Everywhere program and may not contain all information available regarding this patient. Last updated 18.[employer] Allergies No known active allergies Medications Be [...] PM CDT Pulse 102 07/11/2010 9:15 AM TELEPHONIC NURSE CASE MANAGER Temperature 36.6 C (97.8 F) 07/11/2010 9:15 AM TELEPHONIC NURSE CASE MANAGER Respiratory Rate 24 07/11/2010 9:15 AM TELEPHONIC NURSE CASE MANAGER Oxygen Saturation - - Inhaled Oxygen Concentration - - Weight 20.4 kg (44 lb 14.4 oz) 08/02/2010 1:04 P M CDT Height 117.2 cm (3' 10.14 ) 08/02/2010 1:04 PM C DT Nbpydg-xru-Ksmbsi Percentile 34.06% 08/02/2010 1 :04 PM CDT Growth Chart: CDC (Girls, 2- 20 Years) Body Mass Index 14.83 08/02/2010 1:04 PM CDT Body Mass Index Percentile 39.27% 08/02/2010 1:0 4 PM CDT Growth Chart: CDC (Girls, 2- 20 Years) Plan of Treatment Not on file Care Teams Fitness Sales Consultant Relationship Specialty Start Date End Date Douglas Shah MD [address] [address] PCP - General 07/08/10
--- OUTSIDE RECORDS SUMMARY | 2024-06-20 07:56 | XMS_ITS | Patient Health Summary ---
Author Organization [facility] [employer] Address [address] [place] [address] Care Team Providers Care Tunnel Miner Name Role Phone Douglas Shah MD Primary Care Provider [phone] Note from [facility],non-owned Affiliates and Associated Physician Practices is amultiple site organization consisting of ambulatory clinics and hospital sitesin [place], [place], [place] and [place]. This disclosure is being madepursuant to the Care Everywhere program and may not contain all information available regarding this patient. Last updated 18.[facility] Allergies No known active allergies Medications Be [...] PM CDT Pulse 102 07/11/2010 9:15 AM TRANSFORMER MECHANIC Temperature 36.6 C (97.8 F) 07/11/2010 9:15 AM TRANSFORMER MECHANIC Respiratory Rate 24 07/11/2010 9:15 AM TRANSFORMER MECHANIC Oxygen Saturation - - Inhaled Oxygen Concentration - - Weight 20.4 kg (44 lb 14.4 oz) 08/02/2010 1:04 P M CDT Height 117.2 cm (3' 10.14 ) 08/02/2010 1:04 PM C DT Hwhxui-yua-Qbzlui Percentile 34.06% 08/02/2010 1 :04 PM CDT Growth Chart: CDC (Girls, 2- 20 Years) Body Mass Index 14.83 08/02/2010 1:04 PM CDT Body Mass Index Percentile 39.27% 08/02/2010 1:0 4 PM CDT Growth Chart: CDC (Girls, 2- 20 Years) Procedures * LAB [...] * LAB RESULTS ORDER (07/13/2010 11:57 AM TRANSFORMER MECHANIC) Narrative Procedure Note Document, Scanned - 07/12/2010 4:34 PM TRANSFORMER MECHANIC Scanned Document LAB - THERAPEUTIC DR CURTIS MONITORING ORDERABLES * CMV ANTIGENEMIA PANEL (07/11/2010 11:00 AM TRANSFORMER MECHANIC) Cytomegalovirus Antigenemia Negative direct immunofluorescence of white blood cells for cytomegalovirus (CMV) antigen. Failure to detect CMV antigenemia does not rule out CMV infection. Negative [facility] Interpretation Cytomegalovirus Antigenemia [facility] Comment: NOTE Absolute CMV antigenemia values or breakpoints for symptomatic disease have not been established and appear to be different among patient populations. Therefore, it is important to monitor patients and [...] BLOOD SPECIMEN / Unknown 07/11/2010 11:00 AM TRANSFORMER MECHANIC 07/11/2010 11:06 AM TRANSFORMER MECHANIC Marsha Issa MD LAB - SEROLOGY ORDER OTTO Performing Organization Address [facility] Co de Phone Number [facility] [address] [place] [address] * XOCHITL-BAR VIRUS ANTIBODY TO NUCLEAR ANTIGEN (07/11/2010 11:00 AM TRANSFORMER MECHANIC) Pathologist [facility] Xochitl-Amador Virus Antibody IgG Nuclear Antigen >1-10 Seropositive Less than 1-10 [facility] BLOOD SPECIMEN / Unknown 07/11/2010 11:00 AM TRANSFORMER MECHANIC 07/11/2010 11:06 AM TRANSFORMER MECHANIC Marsha Issa MD LAB - CHEMISTRY ORDE NERY Performing Organization Address [facility] Co de Phone Number [facility] [address] [place] [address] * LIPASE BLOOD (07/10/2010 1:10 PM TRANSFORMER MECHANIC) Only the most recent of2 resultswithin the time period is included. Pathologist [facility] Lipase 165 23 - 300 Units/L [facility] BLOOD SPECIMEN / Unknown 07/10/2010 1:10 PM TRANSFORMER MECHANIC 07/10/2010 1:10 PM TRANSFORMER MECHANIC Radha Jordan MD LAB - CHEMISTRY ORDFabio GABRIEL Performing Organization Address [facility] Co de Phone Number [facility] [address] [place] [address] * AMYLASE BLOOD (07/10/2010 1:10 PM TRANSFORMER MECHANIC) Only the most recent of2 resultswithin the time period is included. Pathologist [facility] Amylase 67 30 - 100 Units/L [facility] BLOOD SPECIMEN / Unknown 07/10/2010 1:10 PM TRANSFORMER MECHANIC 07/10/2010 1:10 PM TRANSFORMER MECHANIC Radha Jordan MD LAB - CHEMISTRY ORDFabio GABRIEL Performing Organization Address [facility] Co de Phone Number [facility] [address] [place] [address] * (ABNORMAL) LIPID PROFILE (07/10/2010 1:10 PM TRANSFORMER MECHANIC) Cholesterol 143 < 200 mg/dl mg/dl [facility] Triglycerides 94 < 150 mg/dl mg/dl [facility] HDL Cholesterol 39(L) > 40 mg/dl mg/dl [facility] LDL Calculated 85 < 100 mg/dl mg/dl [facility] Chol HDL Ratio 3.7 [facility] Comment Lipid Reference Ranges provided by [employer]. [facility] BLOOD SPECIMEN / Unknown 07/10/2010 1:10 PM TRANSFORMER MECHANIC 07/10/2010 1:10 PM TRANSFORMER MECHANIC Radha Jordan MD LAB - CHEMISTRY CHRISTI GABRIEL [facility] [address] [facility] [facility] [address] * US ABDOMEN LIMITED (07/09/2010 11:33 AM TRANSFORMER MECHANIC) Anatomical Region Laterality Modality Abdomen Ultrasound 07/09/2010 12:1 0 PM TRANSFORMER MECHANIC Narrative 07/09/2010 12:19 PM TRANSFORMER MECHANIC Exam: Abdominal sonogram Date: 07/09/2010 The liver [...] * CALCIUM IONIZED BLOOD (07/09/2010 5:35 AM TRANSFORMER MECHANIC) pH 7.389 7.35-7.45 (art) [facility] Calcium Ionized 1.26 mmol/L [facility] Calcium Ionized Adjusted 1.25 1.15 - 1.29 mmol/L [facility] Specimen Type/Condition Blood Gas Cap/ABL [facility] BLOOD SPECIMEN SUBMITTED IN HEPARINIZED COLLECTION TUBE / Unknown 07/09/2010 5:35 AM TRANSFORMER MECHANIC 07/09/2010 5:48 AM TRANSFORMER MECHANIC Radha Jordan MD LAB - CHEMISTRY CHRISTI GABRIEL [facility] Organization Address City/State/ZIP Co de Phone Number [facility] [address] [place] [address] Care Teams Tunnel Miner Relationship Specialty Start Date End Date Douglas Sahh MD [address] [facility] [address] [place] [address] PCP - General 07/08/10
--- OUTSIDE RECORDS SUMMARY | 2024-06-20 07:56 | XMS_ITS | CONTINUITY OF CARE DOCUMENT ---
Author Name nicholasdaishaavilaabdelrahman Address Unknown Organization [facility] Address [address] [place] [address] Phone [phone] Care Team Providers Care Steward/Stewardess Dining Room Name Role Phone Shahid OSEGUERA, Eloy Unavailable VALERIA SOLIS MD Unavailable [phone] VALERIA SOLIS MD Unavailable [phone] INSURANCE PROVIDERS Payer name Policy type / Coverage type [place] red libertarian ID [facility] CHOICE PLUS Commercial insuran company [id number] HEALTHCARE AND FAMILY SERVICES Medicaid 1 [id number]
[2024-06-20 08:27] LABS: Glucose Fasting Gestational 85 mg/dL (>/=95)
== END 2024-06-20 07:52 | disposition home or self-care (01) ==
LOC: ANHLAB 07:52
PROVIDERS: PCP Obstetrics & Gynecology; Visit Provider Obstetrics & Gynecology
DX: Z34.90 Encounter for supervision of normal pregnancy, unspecified, unspecified trimester (principal); Z3A.00 Weeks of gestation of pregnancy not specified
CPT/HCPCS: 36415; 82951; 82952

== ENCOUNTER 2024-06-22 17:13 | Observation (INO) | payer OTHER, SELFPAY ==
--- OUTSIDE RECORDS SUMMARY | 2024-06-22 17:21 | XMS_ITS | Referral Summary ---
Author Organization [facility] Address [address] [place] [address] Care Team Providers Care Resistance Welding Machine Operator Name Role Phone Douglas Shah MD Primary Care Provider Source Comments [facility],non-owned Affiliates and Associated Physician Practices is amultiple site organization consisting of ambulatory clinics and hospital sitesin [place], [place], [place] and [place]. This disclosure is being madepursuant to the Care Everywhere program and may not contain all information available regarding this patient. Last updated 18.[employer] Allergies No known active allergies Medications Be [...] PM CDT Pulse 102 07/11/2010 9:15 AM ITEM PROCESSING CLERK Temperature 36.6 C (97.8 F) 07/11/2010 9:15 AM ITEM PROCESSING CLERK Respiratory Rate 24 07/11/2010 9:15 AM ITEM PROCESSING CLERK Oxygen Saturation - - Inhaled Oxygen Concentration - - Weight 20.4 kg (44 lb 14.4 oz) 08/02/2010 1:04 P M CDT Height 117.2 cm (3' 10.14 ) 08/02/2010 1:04 PM C DT Rfaops-qfr-Vdjsgg Percentile 34.06% 08/02/2010 1 :04 PM CDT Growth Chart: CDC (Girls, 2- 20 Years) Body Mass Index 14.83 08/02/2010 1:04 PM CDT Body Mass Index Percentile 39.27% 08/02/2010 1:0 4 PM CDT Growth Chart: CDC (Girls, 2- 20 Years) Plan of Treatment Not on file Care Teams Resistance Welding Machine Operator Relationship Specialty Start Date End Date Douglas Shah MD [address] [address] PCP - General 07/08/10
--- OUTSIDE RECORDS SUMMARY | 2024-06-22 17:21 | XMS_ITS | Patient Health Summary ---
Author Organization [facility] [employer] Address [address] [place] [address] Care Team Providers Care Print Controller Name Role Phone Douglas Shah MD Primary Care Provider [phone] Note from [facility],non-owned Affiliates and Associated Physician Practices is amultiple site organization consisting of ambulatory clinics and hospital sitesin [place], [place], [place] and [place]. This disclosure is being madepursuant to the Care Everywhere program and may not contain all information available regarding this patient. Last updated 18.[facility] [employer] Allergies No known active allergies Medications Be [...] PM CDT Pulse 102 07/11/2010 9:15 AM RING STRIKER Temperature 36.6 C (97.8 F) 07/11/2010 9:15 AM RING STRIKER Respiratory Rate 24 07/11/2010 9:15 AM RING STRIKER Oxygen Saturation - - Inhaled Oxygen Concentration - - Weight 20.4 kg (44 lb 14.4 oz) 08/02/2010 1:04 P M CDT Height 117.2 cm (3' 10.14 ) 08/02/2010 1:04 PM C DT Gycwbj-lbj-Uwophp Percentile 34.06% 08/02/2010 1 :04 PM CDT [...] * LAB RESULTS ORDER (07/13/2010 11:57 AM RING STRIKER) Narrative Procedure Note Document, Scanned - 07/12/2010 4:34 PM RING STRIKER Scanned Document LAB - THERAPEUTIC DR CURTIS MONITORING ORDERABLES * CMV ANTIGENEMIA PANEL (07/11/2010 11:00 AM RING STRIKER) Cytomegalovirus Antigenemia Negative direct immunofluorescence of white blood cells for cytomegalovirus (CMV) antigen. Failure to detect CMV antigenemia does not rule out CMV infection. Negative [facility] Interpretation Cytomegalovirus Antigenemia [facility] Comment: NOTE Absolute CMV antigenemia [...] BLOOD SPECIMEN / Unknown 07/11/2010 11:00 AM RING STRIKER 07/11/2010 11:06 AM RING STRIKER Marsha Issa MD LAB - SEROLOGY ORDER OTTO Performing Organization Address [facility] Co de Phone Number [facility] [address] [place] [address] * XOCHITL-BAR VIRUS ANTIBODY TO NUCLEAR ANTIGEN (07/11/2010 11:00 AM RING STRIKER) Pathologist [facility] Xochitl-Amador Virus Antibody IgG Nuclear Antigen >1-10 Seropositive Less than 1-10 [facility] BLOOD SPECIMEN / Unknown 07/11/2010 11:00 AM RING STRIKER 07/11/2010 11:06 AM RING STRIKER Marsha Issa MD LAB - CHEMISTRY ORDE NERY Performing Organization Address [facility] Co de Phone Number [facility] [address] [place] [address] * LIPASE BLOOD (07/10/2010 1:10 PM RING STRIKER) Only the most recent of2 resultswithin the time period is included. Pathologist [facility] Lipase 165 23 - 300 Units/L [facility] BLOOD SPECIMEN / Unknown 07/10/2010 1:10 PM RING STRIKER 07/10/2010 1:10 PM RING STRIKER Radha Jordan MD LAB - CHEMISTRY ORDFabio GABRIEL Performing Organization Address [facility] Co de Phone Number [facility] [address] [place] [address] * AMYLASE BLOOD (07/10/2010 1:10 PM RING STRIKER) Only the most recent of2 resultswithin the time period is included. Pathologist [facility] Amylase 67 30 - 100 Units/L [facility] BLOOD SPECIMEN / Unknown 07/10/2010 1:10 PM RING STRIKER 07/10/2010 1:10 PM RING STRIKER Radha Jordan MD LAB - CHEMISTRY ORDFabio GABRIEL Performing Organization Address [facility] Co de Phone Number [facility] [address] [place] [address] * (ABNORMAL) LIPID PROFILE (07/10/2010 1:10 PM RING STRIKER) Cholesterol 143 < 200 mg/dl mg/dl [facility] Triglycerides 94 < 150 mg/dl mg/dl [facility] HDL Cholesterol 39(L) > 40 mg/dl mg/dl [facility] LDL Calculated 85 < 100 mg/dl mg/dl [facility] Chol HDL Ratio 3.7 [facility] Comment Lipid Reference Ranges provided by [employer] [employer]. [facility] BLOOD SPECIMEN / Unknown 07/10/2010 1:10 PM RING STRIKER 07/10/2010 1:10 PM RING STRIKER Radha Jordan MD LAB - CHEMISTRY CHRISTI GABRIEL [facility] [address] [place] [address] * US ABDOMEN LIMITED (07/09/2010 11:33 AM RING STRIKER) Anatomical Region Laterality Modality Abdomen Ultrasound 07/09/2010 12:1 0 PM RING STRIKER Narrative 07/09/2010 12:19 PM RING STRIKER Exam: Abdominal sonogram Date: 07/09/2010 The liver [...] * CALCIUM IONIZED BLOOD (07/09/2010 5:35 AM RING STRIKER) pH 7.389 7.35-7.45 (art) [facility] Calcium Ionized 1.26 mmol/L [facility] Calcium Ionized Adjusted 1.25 1.15 - 1.29 mmol/L [facility] Specimen Type/Condition Blood Gas Cap/ABL [facility] BLOOD SPECIMEN SUBMITTED IN HEPARINIZED COLLECTION TUBE / Unknown 07/09/2010 5:35 AM RING STRIKER 07/09/2010 5:48 AM RING STRIKER Radha Jordan MD LAB - CHEMISTRY CHRISTI GABRIEL [facility] Organization Address City/State/ZIP Co de Phone Number [facility] [address] [place] [address] Care Teams Print Controller Relationship Specialty Start Date End Date Douglas Shah MD [address] [facility] [address] [place] [address] PCP - General 07/08/10
--- OUTSIDE RECORDS SUMMARY | 2024-06-22 17:21 | XMS_ITS | Clinical Summary ---
Author Organization [employer] [facility] [employer] Address [address] [place] [address] Care Team Providers Care Emergency Communications Dispatcher Name Role Phone Douglas Shah MD Primary Care Provider [phone] Source Comments [facility] [employer],non-owned Affiliates and Associated Physician Practices is amultiple site organization consisting of ambulatory clinics and hospital sitesin [place], [place], [place] and [place]. This disclosure is being madepursuant to the Care Everywhere program and may not contain all information available regarding this patient. Last updated 18.[email or web address] Allergies No known active allergies Medications Be [...] PM CDT Pulse 102 07/11/2010 9:15 AM SHIPS OR BARGES LOADER Temperature 36.6 C (97.8 F) 07/11/2010 9:15 AM SHIPS OR BARGES LOADER Respiratory Rate 24 07/11/2010 9:15 AM SHIPS OR BARGES LOADER Oxygen Saturation - - Inhaled Oxygen Concentration - - Weight 20.4 kg (44 lb 14.4 oz) 08/02/2010 1:04 P M CDT Height 117.2 cm (3' 10.14 ) 08/02/2010 1:04 PM C DT Jpnwns-kxy-Hhccjn Percentile 34.06% 08/02/2010 1 :04 PM CDT [...] age to complete this topic Care Teams Emergency Communications Dispatcher Relationship Specialty Start Date End Date Douglas Shah MD [address] [facility] [address] [place] [address] PCP - General 07/08/10
--- OUTSIDE RECORDS SUMMARY | 2024-06-22 17:21 | XMS_ITS | CONTINUITY OF CARE DOCUMENT ---
Author Name nicholasdaishaavilaabdelrahman Address Unknown Organization [facility] Address [address] [place] [address] Phone [phone] Care Team Providers Care Mortgage Closer Name Role Phone Shahid OSEGUERA, Eloy Unavailable [phone] VALERIA SOLIS MD Unavailable VALERIA SOLIS MD Unavailable [phone] INSURANCE PROVIDERS Payer name Policy type / Coverage type [place] red democrat ID [facility] CHOICE PLUS Commercial insuran company [id number] HEALTHCARE AND FAMILY SERVICES Medicaid 1 [id number]
--- OUTSIDE RECORDS SUMMARY | 2024-06-22 17:21 | XMS_ITS | Continuity of Care Document ---
Author Organization [facility] Address [address] [place] [address] [address] [place] [address] Phone Care Team Providers Care Head Lineman Name Role Phone Mobley OD, Gianni Unavailable Unavailable Procedures Procedure Date Eye Exam, New Patient Refraction Advance Directives Directive Yes / No Effective Date File Name No Information Encounters Encounter Description Practice Location Reason(s) For Visit Diagnoses Date Provider Providers Copied on Encounter [facility], [address], [place], [place], [id number], [place] tel:[phone] [facility] [place] No Information 1-201 0 Mobley OD Gianni. [address] [place] , [address], [place], [address], [place]. tel:[phone] Family History Family Member Type Diagnosis Age At Onset No Information Payers Payer name Insurance type Covered green party ID Authoriza tion(s) [facility] [id number] Social History Type Description Quantity Date Captured [...]
[2024-06-22 17:38] VITALS: BP 113/74; PULSE 109
[2024-06-22 17:45] VITALS: BP 108/71; PULSE 103
[2024-06-22 17:55] LABS: Add Urine Microscopic? YES; Appearance Urine Cloudy (Clear); Bacteria Urine 2+ /hpf; Bilirubin Urine Negative (Negative); Blood Urine Negative (Negative); Color Urine Yellow (Yellow); Glucose Urine UA Negative (Negative); Ketones Urine Negative (Negative); Leukocyte Esterase Ur 3+ LEU/UL (Negative); Need Manual Microscopic Reviewed; Nitrate Urine Negative (Negative); Protein Urine Negative (Negative); RBC Urine 0-2 /hpf (0-2); Specific Grav Ur 1.007 (1.001-1.035); Squamous Epithelial Cell Urine Moderate /hpf (Few); Urobilinogen Urine 0.2 mg/dL (<2.0); WBC Urine 51-100 /hpf (0-3); pH Urine 6.5 (5.0-9.0)
[2024-06-22 17:58] LABS: Non Pathogenic Casts Present
[2024-06-22 18:00] VITALS: BP 118/72; PULSE 99
[2024-06-22 18:15] VITALS: BP 108/65; PULSE 105
[2024-06-22 18:30] VITALS: BP 111/70; PULSE 102
[2024-06-22 18:45] VITALS: BP 108/75; PULSE 97
[2024-06-22] MEDS: LOPERAMIDE HCL 2 MG CAPSULE PO ×2 (19:01→21:53)
[2024-06-22] MEDS: DEXTROSE 5%/LACTATED RINGERS 1,000 ML 500 ML IV CONT (19:02)
[2024-06-22 19:08] LABS: Basophils Absolute Auto 0.1 K/mm3 (0.0-0.1); Basophils Percent Auto 0.3 % (0.2-1.2); Eosinophils Absolute Auto 0.2 K/mm3 (0-0.3); Hematocrit 33.6 % (37.0-47.0); Hemoglobin 11.4 g/dL (12.0-15.0); Immature Granulocyte Percent A 2.6 % (0-0.5); Lymphocytes Absolute Auto 3.25 K/mm3 (0.9-3.2); Lymphocytes Percent Auto 21.3 % (18.3-44.2); Mean Corpuscular HGB Conc 33.9 g/dl (32-36); Mean Corpuscular Hemoglobin 30.8 pg (26-34); Mean Corpuscular Volume 90.8 fl (80-100); Mean Platelet Volume 10.2 fl (7.4-10.4); Monocytes Absolute Auto 1.1 K/mm3 (0.1-0.6); Neutrophils Absolute Auto 10.3 K/mm3 (1.3-6.7); Neutrophils Percent Auto 67.8 % (45.5-73.1); Platelet Count Result 223 k/mm3 (150-375); White Blood Count 15.2 K/mm3 (4.5-10.0)
[2024-06-22 19:20] LABS: Alanine Aminotransferase 23 U/L (6-35); Albumin Level 3.2 g/dL (3.7-5.6); Alkaline Phosphatase 85 U/L (45-116); Anion Gap 8 mmol/L (4-12); Aspartate Amino Transferase 27 U/L (14-36); Bilirubin,Total 0.3 mg/dL (0.2-1.3); Blood Urea Nitrogen 6 mg/dL (8-21); Carbon Dioxide 22 mmol/L (22-30); Chloride 104 mmol/L (98-107); Estimated Glomerular Filt Rate > 60; Glucose 85 mg/dL (65-110); Potassium 3.8 mmol/L (3.4-5.0); Sodium 134 mmol/L (134-143)
[2024-06-22] MEDS: ceFAZolin 1 GM/NS 50 ML 1 GM/50 ML BAG IVPB (20:00)
[2024-06-22 21:41] VITALS: BMI 29.4
--- NOTE | 2024-06-22 21:41 | OBADM ---
This patient, Kate Tovar, admitted to the OB room OB Post 113 for observation. Patient/family oriented to hospital policies and general routines including ID bracelet, bed and alarms, visiting hours, pain management, procedures, bathroom and other care routines, personal items, smoking policy, room service/diet, and visiting hours. Patient/Family are encouraged to report perceived risks to care and to ask questions if they do not understand what they are told or what they should do.
--- NOTE | 2024-06-24 14:14 | P.PNOB_ITS ---
OB - Triage/Final Diagnosis Visit Information Reason for evaluation: threatened labor ( and diarrhea) Comments/Additional reasons for admission: I have assessed the risk for this patient, Kate Tovar, and determined that she would benefit from observation care. Evaluation Laboratory results: Laboratory Tests 06/22/24 06/22/24 17:31 18:51 WBC 15.2 H RBC 3.70 L Hgb 11.4 L Hct 33.6 L MCV 90.8 MCH 30.8 MCHC 33.9 RDW 13.0 Plt Count 223 MPV 10.2 Immature Gran % (Auto) 2.6 H Neut % (Auto) 67.8 Lymph % (Auto) 21.3 [place] % (Auto) 7.0 Eos % (Auto) 1.0 Baso % (Auto) 0.3 Lymph # (Auto) 3.25 H [place] # (Auto) 1.1 H Eos # (Auto) 0.2 Baso # (Auto) 0.1 Abs Immat Gran (auto) 0.40 H Absolute Neuts (auto) 10.3 H Absolute Nucleated RBC 0.000 Nucleated RBC % 0.0 Sodium 134 Potassium 3.8 Chloride 104 Carbon Dioxide 22 Anion Gap 8 BUN 6 L Creatinine 0.49 L Estim Creat Clear Calc Not Reportable Estimated GFR > 60 Glucose 85 Calcium 9.0 Total Bilirubin 0.3 AST 27 ALT 23 Alkaline Phosphatase 85 Total Protein 6.0 L Albumin 3.2 L Urine Color Yellow Urine Appearance Cloudy H Urine pH 6.5 Ur Specific [place] 1.007 Urine Protein Negative Urine Glucose (UA) Negative Urine Ketones Negative Ur Blood (Man) Negative Urine Nitrate Negative Urine Bilirubin Negative Urine Urobilinogen 0.2 Add Ur Microanalysis Reviewed Leukocyte Esterase Rfl 3+ H Urine RBC 0-2 Urine WBC 51-100 H Ur Squamous Epith Cells Moderate Urine Bacteria 2+ H Urine Casts Present
== END 2024-06-22 21:55 | disposition home or self-care (01) ==
PROVIDERS: Admitting Provider Obstetrics & Gynecology; Visit Provider Obstetrics & Gynecology
DX: O47.03 False labor before 37 completed weeks of gestation, third trimester (principal); O99.613 Diseases of the digestive system complicating pregnancy, third trimester; R19.7 Diarrhea, unspecified; Z3A.29 29 weeks gestation of pregnancy
CPT/HCPCS: 36415; 80053; 81001; 85025; 96365; A9270; G0378; G0379; J0690; J7121

== ENCOUNTER 2024-06-25 10:30 | Outpatient (CLI) | payer OTHER, SELFPAY ==
--- OUTSIDE RECORDS SUMMARY | 2024-06-25 11:48 | XMS_ITS | Clinical Summary ---
Author Organization [employer] Address [address] [place] [address] Care Team Providers Care Buffer Nickel Name Role Phone Douglas Shah MD Primary Care Provider [phone] Source Comments [facility] [facility],non-owned Affiliates and Associated Physician Practices is amultiple site organization consisting of ambulatory clinics and hospital sitesin [place], [place], [place] and [place]. This disclosure is being madepursuant to the Care Everywhere program and may not contain all information available regarding this patient. Last updated 18.[employer] Allergies No known active allergies Medications Be [...] PM CDT Pulse 102 07/11/2010 9:15 AM LAMP SHADES SUPERVISOR Temperature 36.6 C (97.8 F) 07/11/2010 9:15 AM LAMP SHADES SUPERVISOR Respiratory Rate 24 07/11/2010 9:15 AM LAMP SHADES SUPERVISOR Oxygen Saturation - - Inhaled Oxygen Concentration - - Weight 20.4 kg (44 lb 14.4 oz) 08/02/2010 1:04 P M CDT Height 117.2 cm (3' 10.14 ) 08/02/2010 1:04 PM C DT Qlqria-rjg-Wjwlmc Percentile 34.06% 08/02/2010 1 :04 PM CDT [...] age to complete this topic Care Teams Buffer Nickel Relationship Specialty Start Date End Date Douglas Shah MD [address] [facility] [address] [place] [address] PCP - General 07/08/10
--- OUTSIDE RECORDS SUMMARY | 2024-06-25 11:48 | XMS_ITS | Referral Summary ---
Author Organization [employer] Address [address] [place] [address] Care Team Providers Care Manager Transfusion Name Role Phone Douglas Shah MD Primary Care Provider [phone] Source Comments [employer],non-owned Affiliates and Associated Physician Practices is amultiple site organization consisting of ambulatory clinics and hospital sitesin [place], [place], [place] and [place]. This disclosure is being madepursuant to the Care Everywhere program and may not contain all information available regarding this patient. Last updated 18.[employer] Allergies No known active allergies Medications Be [...] PM CDT Pulse 102 07/11/2010 9:15 AM HEALTHCARE MANAGEMENT CONSULTANT Temperature 36.6 C (97.8 F) 07/11/2010 9:15 AM HEALTHCARE MANAGEMENT CONSULTANT Respiratory Rate 24 07/11/2010 9:15 AM HEALTHCARE MANAGEMENT CONSULTANT Oxygen Saturation - - Inhaled Oxygen Concentration - - Weight 20.4 kg (44 lb 14.4 oz) 08/02/2010 1:04 P M CDT Height 117.2 cm (3' 10.14 ) 08/02/2010 1:04 PM C DT Qhmmxh-dyz-Uttepc Percentile 34.06% 08/02/2010 1 :04 PM CDT Growth Chart: CDC (Girls, 2- 20 Years) Body Mass Index 14.83 08/02/2010 1:04 PM CDT Body Mass Index Percentile 39.27% 08/02/2010 1:0 4 PM CDT Growth Chart: CDC (Girls, 2- 20 Years) Plan of Treatment Not on file Care Teams Manager Transfusion Relationship Specialty Start Date End Date Douglas Shah MD [address] [address] PCP - General 07/08/10
--- OUTSIDE RECORDS SUMMARY | 2024-06-25 11:48 | XMS_ITS | CONTINUITY OF CARE DOCUMENT ---
Author Name nicholasdaisha, nicholasdaisha Address Unknown Organization [facility] Address [address] [place] [address] Phone [phone] Care Team Providers Care Commercial Loan Closer Name Role Phone Shahid OSEGUERA, Eloy Unavailable [phone] VALERIA SOLIS MD Unavailable VALERIA SOLIS MD Unavailable INSURANCE PROVIDERS Payer name Policy type / Coverage type [place] red constitution party ID [facility] CHOICE PLUS Commercial insuran company [id number] HEALTHCARE AND FAMILY SERVICES Medicaid 1 [id number]
--- OUTSIDE RECORDS SUMMARY | 2024-06-25 11:48 | XMS_ITS | Continuity of Care Document ---
Author Organization [facility] Address [address] [place] [address] [address] [place] [address] Phone Care Team Providers Care It Admin Name Role Phone Mobley OD, Gianni Unavailable Unavailable Procedures Procedure Date Eye Exam, New Patient Refraction Advance Directives Directive Yes / No Effective Date File Name No Information Encounters Encounter Description Practice Location Reason(s) For Visit Diagnoses Date Provider Providers Copied on Encounter [facility], [address], [place], [place], [id number], [place] tel:[phone] [address] [facility] [place] No Information 1-201 0 Mobley OD Gianni. [address] [place] , [address], [place], [address], [place]. tel:[phone] Family History Family Member Type Diagnosis Age At Onset No Information Payers Payer name Insurance type Covered green party ID Authoriza tion(s) Medicaid [facility] [id number] Social History Type Description Quantity Date Captured [...]
--- OUTSIDE RECORDS SUMMARY | 2024-06-25 11:48 | XMS_ITS | Patient Health Summary ---
Author Organization [facility] [employer] Address [address] [place] [address] Care Team Providers Care City Carrier Name Role Phone Douglas Shah MD Primary Care Provider Note from [facility],non-owned Affiliates and Associated Physician Practices is amultiple site organization consisting of ambulatory clinics and hospital sitesin [place], [place], [place] and [place]. This disclosure is being madepursuant to the Care Everywhere program and may not contain all information available regarding this patient. Last updated 18.[facility] [employer] Allergies No known active allergies Medications Be [...] PM CDT Pulse 102 07/11/2010 9:15 AM SUPERVISOR BOILER REPAIR Temperature 36.6 C (97.8 F) 07/11/2010 9:15 AM SUPERVISOR BOILER REPAIR Respiratory Rate 24 07/11/2010 9:15 AM SUPERVISOR BOILER REPAIR Oxygen Saturation - - Inhaled Oxygen Concentration - - Weight 20.4 kg (44 lb 14.4 oz) 08/02/2010 1:04 P M CDT Height 117.2 cm (3' 10.14 ) 08/02/2010 1:04 PM C DT Hdxanz-dhx-Ynblgk Percentile 34.06% 08/02/2010 1 :04 PM CDT [...] * LAB RESULTS ORDER (07/13/2010 11:57 AM SUPERVISOR BOILER REPAIR) Narrative Procedure Note Document, Scanned - 07/12/2010 4:34 PM SUPERVISOR BOILER REPAIR Scanned Document LAB - THERAPEUTIC DR CURTIS MONITORING ORDERABLES * CMV ANTIGENEMIA PANEL (07/11/2010 11:00 AM SUPERVISOR BOILER REPAIR) Cytomegalovirus Antigenemia Negative direct immunofluorescence of white blood cells for cytomegalovirus (CMV) antigen. Failure to detect CMV antigenemia does not rule out CMV infection. Negative [facility] Interpretation Cytomegalovirus Antigenemia [facility] Comment: NOTE Absolute CMV antigenemia [...] BLOOD SPECIMEN / Unknown 07/11/2010 11:00 AM SUPERVISOR BOILER REPAIR 07/11/2010 11:06 AM SUPERVISOR BOILER REPAIR Marsha Issa MD LAB - SEROLOGY ORDER OTTO Performing Organization Address [facility] Co de Phone Number [facility] [address] [place] [address] * XOCHITL-BAR VIRUS ANTIBODY TO NUCLEAR ANTIGEN (07/11/2010 11:00 AM SUPERVISOR BOILER REPAIR) Pathologist [facility] Xochitl-Amador Virus Antibody IgG Nuclear Antigen >1-10 Seropositive Less than 1-10 [facility] BLOOD SPECIMEN / Unknown 07/11/2010 11:00 AM SUPERVISOR BOILER REPAIR 07/11/2010 11:06 AM SUPERVISOR BOILER REPAIR Marsha Issa MD LAB - CHEMISTRY ORDE NERY Performing Organization Address [facility] Co de Phone Number [facility] [address] [place] [address] * LIPASE BLOOD (07/10/2010 1:10 PM SUPERVISOR BOILER REPAIR) Only the most recent of2 resultswithin the time period is included. Pathologist [facility] Lipase 165 23 - 300 Units/L [facility] BLOOD SPECIMEN / Unknown 07/10/2010 1:10 PM SUPERVISOR BOILER REPAIR 07/10/2010 1:10 PM SUPERVISOR BOILER REPAIR Radha Jordan MD LAB - CHEMISTRY ORDFabio GABRIEL Performing Organization Address [facility] Co de Phone Number [facility] [address] [place] [address] * AMYLASE BLOOD (07/10/2010 1:10 PM SUPERVISOR BOILER REPAIR) Only the most recent of2 resultswithin the time period is included. Pathologist [facility] Amylase 67 30 - 100 Units/L [facility] BLOOD SPECIMEN / Unknown 07/10/2010 1:10 PM SUPERVISOR BOILER REPAIR 07/10/2010 1:10 PM SUPERVISOR BOILER REPAIR Radha Jordan MD LAB - CHEMISTRY ORDFabio GABRIEL Performing Organization Address [facility] Co de Phone Number [facility] [address] [place] [address] * (ABNORMAL) LIPID PROFILE (07/10/2010 1:10 PM SUPERVISOR BOILER REPAIR) Cholesterol 143 < 200 mg/dl mg/dl [facility] Triglycerides 94 < 150 mg/dl mg/dl [facility] HDL Cholesterol 39(L) > 40 mg/dl mg/dl [facility] LDL Calculated 85 < 100 mg/dl mg/dl [facility] Chol HDL Ratio 3.7 [facility] Comment Lipid Reference Ranges provided by [employer] [employer]. [facility] BLOOD SPECIMEN / Unknown 07/10/2010 1:10 PM SUPERVISOR BOILER REPAIR 07/10/2010 1:10 PM SUPERVISOR BOILER REPAIR Radha Jordan MD LAB - CHEMISTRY CHRISTI GABRIEL [facility] [address] [facility] [place] [address] * US ABDOMEN LIMITED (07/09/2010 11:33 AM SUPERVISOR BOILER REPAIR) Anatomical Region Laterality Modality Abdomen Ultrasound 07/09/2010 12:1 0 PM SUPERVISOR BOILER REPAIR Narrative 07/09/2010 12:19 PM SUPERVISOR BOILER REPAIR Exam: Abdominal sonogram Date: 07/09/2010 The liver [...] ductal dilatation, or peripancreatic fluid collection. D: Jkae Reeves MD Procedure Note Perla Green MD [...] * CALCIUM IONIZED BLOOD (07/09/2010 5:35 AM SUPERVISOR BOILER REPAIR) pH 7.389 7.35-7.45 (art) [facility] Calcium Ionized 1.26 mmol/L [facility] Calcium Ionized Adjusted 1.25 1.15 - 1.29 mmol/L [facility] Specimen Type/Condition Blood Gas Cap/ABL [facility] BLOOD SPECIMEN SUBMITTED IN HEPARINIZED COLLECTION TUBE / Unknown 07/09/2010 5:35 AM SUPERVISOR BOILER REPAIR 07/09/2010 5:48 AM SUPERVISOR BOILER REPAIR Radha Jordan MD LAB - CHEMISTRY CHRISTI GABRIEL [facility] Organization Address City/State/ZIP Co de Phone Number [facility] [address] [place] [address] Care Teams City Carrier Relationship Specialty Start Date End Date Douglas Shah MD [address] [facility] [address] [place] [address] PCP - General 07/08/10
[2024-06-25 12:48] LABS: Toxigenic C. Diff NEGATIVE (NEGATIVE)
== END 2024-06-25 10:31 | disposition home or self-care (01) ==
LOC: ANHLAB 10:31
PROVIDERS: Nurse Practitioner; Visit Provider Obstetrics & Gynecology
DX: R19.7 Diarrhea, unspecified (principal)
CPT/HCPCS: 82653; 83993; 87045; 87269; 87427; 87449; 87493

== ENCOUNTER 2024-06-27 11:00 | Outpatient (CLI) | payer OTHER, SELFPAY ==
--- OUTSIDE RECORDS SUMMARY | 2024-06-27 11:10 | XMS_ITS | Referral Summary ---
Author Organization [employer] Address [address] [place] [address] Care Team Providers Care Learning Center Instructor Name Role Phone Douglas Shah MD Primary Care Provider [phone] Source Comments [employer],non-owned Affiliates and Associated Physician Practices is amultiple site organization consisting of ambulatory clinics and hospital sitesin [place], [place], [place] and [place]. This disclosure is being madepursuant to the Care Everywhere program and may not contain all information available regarding this patient. Last updated 18.[employer] Allergies No known active allergies Medications Be [...] PM CDT Pulse 102 07/11/2010 9:15 AM JITNEY DRIVER Temperature 36.6 C (97.8 F) 07/11/2010 9:15 AM JITNEY DRIVER Respiratory Rate 24 07/11/2010 9:15 AM JITNEY DRIVER Oxygen Saturation - - Inhaled Oxygen Concentration - - Weight 20.4 kg (44 lb 14.4 oz) 08/02/2010 1:04 P M CDT Height 117.2 cm (3' 10.14 ) 08/02/2010 1:04 PM C DT Cgzhra-rwl-Tgrgab Percentile 34.06% 08/02/2010 1 :04 PM CDT Growth Chart: CDC (Girls, 2- 20 Years) Body Mass Index 14.83 08/02/2010 1:04 PM CDT Body Mass Index Percentile 39.27% 08/02/2010 1:0 4 PM CDT Growth Chart: CDC (Girls, 2- 20 Years) Plan of Treatment Not on file Care Teams Learning Center Instructor Relationship Specialty Start Date End Date Douglas Shah MD [address] [address] PCP - General 07/08/10
--- OUTSIDE RECORDS SUMMARY | 2024-06-27 11:10 | XMS_ITS | Continuity of Care Document ---
Author Organization [facility] Address [address] [place] [address] [address] [place] [address] Phone Care Team Providers Care Barrel Racer Name Role Phone Mobley OD, Gianni Unavailable Unavailable Procedures Procedure Date Eye Exam, New Patient Refraction Advance Directives Directive Yes / No Effective Date File Name No Information Encounters Encounter Description Practice Location Reason(s) For Visit Diagnoses Date Provider Providers Copied on Encounter [facility], [address], [place], [place], [id number], [place] tel:[phone] [address] [facility] [place] No Information 1-201 0 Mobley OD Gianni. [address] [place] , [address], [place], [address], [place]. tel:[phone] Family History Family Member Type Diagnosis Age At Onset No Information Payers Payer name Insurance type Covered constitution party ID Authoriza tion(s) Medicaid [facility] [id number] Social History Type Description Quantity Date Captured [...]
--- OUTSIDE RECORDS SUMMARY | 2024-06-27 11:10 | XMS_ITS | Clinical Summary ---
Author Organization [facility] Address [address] [place] [address] Care Team Providers Care Exchange Trouble Shooter Name Role Phone Douglas Shah MD Primary Care Provider [phone] Source Comments [facility],non-owned Affiliates and Associated Physician Practices is amultiple site organization consisting of ambulatory clinics and hospital sitesin [place], [place], [place]. This disclosure is being madepursuant to the Care Everywhere program and may not contain all information available regarding this patient. Last updated 18.[employer] Allergies No known active allergies Medications Be [...] PM CDT Pulse 102 07/11/2010 9:15 AM FOOD AND BEVERAGE OUTLETS MANAGER Temperature 36.6 C (97.8 F) 07/11/2010 9:15 AM FOOD AND BEVERAGE OUTLETS MANAGER Respiratory Rate 24 07/11/2010 9:15 AM FOOD AND BEVERAGE OUTLETS MANAGER Oxygen Saturation - - Inhaled Oxygen Concentration - - Weight 20.4 kg (44 lb 14.4 oz) 08/02/2010 1:04 P M CDT Height 117.2 cm (3' 10.14 ) 08/02/2010 1:04 PM C DT Dxmnzd-frk-Txupwc Percentile 34.06% 08/02/2010 1 :04 PM CDT [...] age to complete this topic Care Teams Exchange Trouble Shooter Relationship Specialty Start Date End Date Douglas Shah MD [address] [facility] [address] [place] [address] PCP - General 07/08/10
--- OUTSIDE RECORDS SUMMARY | 2024-06-27 11:10 | XMS_ITS | Patient Health Summary ---
Author Organization [facility] [employer] Address [address] [place] [address] Care Team Providers Care Intake Nurse Name Role Phone Douglas Shah MD Primary Care Provider [phone] Note from [facility],non-owned Affiliates and Associated Physician Practices is amultiple site organization consisting of ambulatory clinics and hospital sitesin [place], [place], [place] and [place]. This disclosure is being madepursuant to the Care Everywhere program and may not contain all information available regarding this patient. Last updated 18.[facility] Allergies No known active allergies Medications Be [...] PM CDT Pulse 102 07/11/2010 9:15 AM TRACK AND FIELD COACH Temperature 36.6 C (97.8 F) 07/11/2010 9:15 AM TRACK AND FIELD COACH Respiratory Rate 24 07/11/2010 9:15 AM TRACK AND FIELD COACH Oxygen Saturation - - Inhaled Oxygen Concentration - - Weight 20.4 kg (44 lb 14.4 oz) 08/02/2010 1:04 P M CDT Height 117.2 cm (3' 10.14 ) 08/02/2010 1:04 PM C DT Ufovqw-zto-Wyqyoo Percentile 34.06% 08/02/2010 1 :04 PM CDT [...] * LAB RESULTS ORDER (07/13/2010 11:57 AM TRACK AND FIELD COACH) Narrative Procedure Note Document, Scanned - 07/12/2010 4:34 PM TRACK AND FIELD COACH Scanned Document LAB - THERAPEUTIC DR CURTIS MONITORING ORDERABLES * CMV ANTIGENEMIA PANEL (07/11/2010 11:00 AM TRACK AND FIELD COACH) Cytomegalovirus Antigenemia Negative direct immunofluorescence of white blood cells for cytomegalovirus (CMV) antigen. Failure to detect CMV antigenemia does not rule out CMV infection. Negative [facility] Interpretation Cytomegalovirus Antigenemia [facility] Comment: NOTE Absolute CMV antigenemia values [...] BLOOD SPECIMEN / Unknown 07/11/2010 11:00 AM TRACK AND FIELD COACH 07/11/2010 11:06 AM TRACK AND FIELD COACH Marsha Issa MD LAB - SEROLOGY ORDER OTTO Performing Organization Address [facility] Co de Phone Number [facility] [address] [place] [address] * XOCHITL-BAR VIRUS ANTIBODY TO NUCLEAR ANTIGEN (07/11/2010 11:00 AM TRACK AND FIELD COACH) Pathologist [facility] Xochitl-Amador Virus Antibody IgG Nuclear Antigen >1-10 Seropositive Less than 1-10 [facility] BLOOD SPECIMEN / Unknown 07/11/2010 11:00 AM TRACK AND FIELD COACH 07/11/2010 11:06 AM TRACK AND FIELD COACH Marsha Issa MD LAB - CHEMISTRY ORDE NERY Performing Organization Address [facility] Co de Phone Number [facility] [address] [place] [address] * LIPASE BLOOD (07/10/2010 1:10 PM TRACK AND FIELD COACH) Only the most recent of2 resultswithin the time period is included. Pathologist [facility] Lipase 165 23 - 300 Units/L [facility] BLOOD SPECIMEN / Unknown 07/10/2010 1:10 PM TRACK AND FIELD COACH 07/10/2010 1:10 PM TRACK AND FIELD COACH Radha Jordan MD LAB - CHEMISTRY ORDFabio GABRIEL Performing Organization Address [facility] Co de Phone Number [facility] [address] [place] [address] * AMYLASE BLOOD (07/10/2010 1:10 PM TRACK AND FIELD COACH) Only the most recent of2 resultswithin the time period is included. Pathologist [facility] Amylase 67 30 - 100 Units/L [facility] BLOOD SPECIMEN / Unknown 07/10/2010 1:10 PM TRACK AND FIELD COACH 07/10/2010 1:10 PM TRACK AND FIELD COACH Radha Jordan MD LAB - CHEMISTRY ORDFabio GABRIEL Performing Organization Address [facility] Co de Phone Number [facility] [address] [place] [address] * (ABNORMAL) LIPID PROFILE (07/10/2010 1:10 PM TRACK AND FIELD COACH) Cholesterol 143 < 200 mg/dl mg/dl [facility] Triglycerides 94 < 150 mg/dl mg/dl [facility] HDL Cholesterol 39(L) > 40 mg/dl mg/dl [facility] LDL Calculated 85 < 100 mg/dl mg/dl [facility] Chol HDL Ratio 3.7 [facility] Comment Lipid Reference Ranges provided by [employer]. [facility] BLOOD SPECIMEN / Unknown 07/10/2010 1:10 PM TRACK AND FIELD COACH 07/10/2010 1:10 PM TRACK AND FIELD COACH Radha Jordan MD LAB - CHEMISTRY CHRISTI GABRIEL [facility] [address] [facility] [place] [address] * US ABDOMEN LIMITED (07/09/2010 11:33 AM TRACK AND FIELD COACH) Anatomical Region Laterality Modality Abdomen Ultrasound 07/09/2010 12:1 0 PM TRACK AND FIELD COACH Narrative 07/09/2010 12:19 PM TRACK AND FIELD COACH Exam: Abdominal sonogram Date: 07/09/2010 The liver [...] * CALCIUM IONIZED BLOOD (07/09/2010 5:35 AM TRACK AND FIELD COACH) pH 7.389 7.35-7.45 (art) [facility] Calcium Ionized 1.26 mmol/L [facility] Calcium Ionized Adjusted 1.25 1.15 - 1.29 mmol/L [facility] Specimen Type/Condition Blood Gas Cap/ABL [facility] BLOOD SPECIMEN SUBMITTED IN HEPARINIZED COLLECTION TUBE / Unknown 07/09/2010 5:35 AM TRACK AND FIELD COACH 07/09/2010 5:48 AM TRACK AND FIELD COACH Radha Jordan MD LAB - CHEMISTRY CHRISTI GABRIEL [facility] Organization Address City/State/ZIP Co de Phone Number [facility] [address] [place] [address] Care Teams Intake Nurse Relationship Specialty Start Date End Date Douglas Shah MD [address] [facility] [address] [place] [address] PCP - General 07/08/10
[2024-06-27 11:46] LABS: Hemoglobin 11.9 g/dL (12.0-15.0); Mean Corpuscular HGB Conc 33.1 g/dl (32-36); Mean Corpuscular Hemoglobin 30.2 pg (26-34); Mean Corpuscular Volume 91.4 fl (80-100); Mean Platelet Volume 10.4 fl (7.4-10.4); Platelet Count Result 222 k/mm3 (150-375); Red Blood Count 3.94 M/mm3 (4.2-5.4); Red Cell Distribution Width 12.9 % (11.5-14.5)
[2024-06-27 12:07] LABS: CRP 0.5 mg/dL (<1.0)
[2024-07-01 13:02] LABS: Immunoglobulin A 163 mg/dL (47-310); TTG IGA AB <1.0 U/mL
== END 2024-06-27 11:01 | disposition home or self-care (01) ==
LOC: ANHLAB 11:01
PROVIDERS: Visit Provider Nurse Practitioner
DX: R19.7 Diarrhea, unspecified (principal)
CPT/HCPCS: 36415; 82784; 84443; 85027; 86140; 86364

== ENCOUNTER 2024-07-21 20:24 | Observation (INO) | payer OTHER, SELFPAY ==
--- OUTSIDE RECORDS SUMMARY | 2024-07-21 20:33 | XMS_ITS | CONTINUITY OF CARE DOCUMENT ---
Author Name nicholasdaisha, avilaabdelrahman Address Unknown Organization [facility] Address [address] [place] [address] Phone [phone] Care Team Providers Care Collar Worker Name Role Phone Shahid OSEGUERA, Eloy Unavailable [phone] VALERIA SOLIS MD Unavailable VALERIA SOLIS MD Unavailable INSURANCE PROVIDERS Payer name Policy type / Coverage type [place] red alliance party ID [facility] CHOICE PLUS Commercial insuran company [id number] HEALTHCARE AND FAMILY SERVICES Medicaid 1 [id number]
--- OUTSIDE RECORDS SUMMARY | 2024-07-21 20:33 | XMS_ITS | Patient Health Summary ---
Author Organization [facility] Address [address] [place] [address] Care Team Providers Care Flight Test Shop Mechanic Name Role Phone Douglas Shah MD Primary Care Provider [phone] Note from [facility],non-owned Affiliates and Associated Physician Practices is amultiple site organization consisting of ambulatory clinics and hospital sitesin [place], [place], [place] and [place]. This disclosure is being madepursuant to the Care Everywhere program and may not contain all information available regarding this patient. Last updated 18.[facility] Allergies No known active allergies Medications Be [...] PM CDT Pulse 102 07/11/2010 9:15 AM WATER RESOURCES BUSINESS SEGMENT LEADER Temperature 36.6 C (97.8 F) 07/11/2010 9:15 AM WATER RESOURCES BUSINESS SEGMENT LEADER Respiratory Rate 24 07/11/2010 9:15 AM WATER RESOURCES BUSINESS SEGMENT LEADER Oxygen Saturation - - Inhaled Oxygen Concentration - - Weight 20.4 kg (44 lb 14.4 oz) 08/02/2010 1:04 P M CDT Height 117.2 cm (3' 10.14 ) 08/02/2010 1:04 PM C DT Ozbfow-hpe-Lktbzs Percentile 34.06% 08/02/2010 1 :04 PM CDT [...] * LAB RESULTS ORDER (07/13/2010 11:57 AM WATER RESOURCES BUSINESS SEGMENT LEADER) Narrative Procedure Note Document, Scanned - 07/12/2010 4:34 PM WATER RESOURCES BUSINESS SEGMENT LEADER Scanned Document LAB - THERAPEUTIC DR CURTIS MONITORING ORDERABLES * CMV ANTIGENEMIA PANEL (07/11/2010 11:00 AM WATER RESOURCES BUSINESS SEGMENT LEADER) Cytomegalovirus Antigenemia Negative direct immunofluorescence of white blood cells for cytomegalovirus (CMV) antigen. Failure to detect CMV antigenemia does not rule out CMV infection. Negative [facility] Interpretation Cytomegalovirus Antigenemia [facility] Comment: NOTE Absolute CMV antigenemia [...] BLOOD SPECIMEN / Unknown 07/11/2010 11:00 AM WATER RESOURCES BUSINESS SEGMENT LEADER 07/11/2010 11:06 AM WATER RESOURCES BUSINESS SEGMENT LEADER Marsha Issa MD LAB - SEROLOGY ORDER OTTO Performing Organization Address [facility] Co de Phone Number [facility] [address] [place] [address] * XOCHITL-BAR VIRUS ANTIBODY TO NUCLEAR ANTIGEN (07/11/2010 11:00 AM WATER RESOURCES BUSINESS SEGMENT LEADER) Pathologist [facility] Xochitl-Amador Virus Antibody IgG Nuclear Antigen >1-10 Seropositive Less than 1-10 [facility] BLOOD SPECIMEN / Unknown 07/11/2010 11:00 AM WATER RESOURCES BUSINESS SEGMENT LEADER 07/11/2010 11:06 AM WATER RESOURCES BUSINESS SEGMENT LEADER Marsha Issa MD LAB - CHEMISTRY ORDE NERY Performing Organization Address [facility] Co de Phone Number [facility] [address] [place] [address] * LIPASE BLOOD (07/10/2010 1:10 PM WATER RESOURCES BUSINESS SEGMENT LEADER) Only the most recent of2 resultswithin the time period is included. Pathologist [facility] Lipase 165 23 - 300 Units/L [facility] BLOOD SPECIMEN / Unknown 07/10/2010 1:10 PM WATER RESOURCES BUSINESS SEGMENT LEADER 07/10/2010 1:10 PM WATER RESOURCES BUSINESS SEGMENT LEADER Radha Jordan MD LAB - CHEMISTRY ORDFabio GABRIEL Performing Organization Address [facility] Co de Phone Number [facility] [address] [place] [address] * AMYLASE BLOOD (07/10/2010 1:10 PM WATER RESOURCES BUSINESS SEGMENT LEADER) Only the most recent of2 resultswithin the time period is included. Pathologist [facility] Amylase 67 30 - 100 Units/L [facility] BLOOD SPECIMEN / Unknown 07/10/2010 1:10 PM WATER RESOURCES BUSINESS SEGMENT LEADER 07/10/2010 1:10 PM WATER RESOURCES BUSINESS SEGMENT LEADER Radha Jordan MD LAB - CHEMISTRY ORDFabio GABRIEL Performing Organization Address [facility] Co de Phone Number [facility] [address] [place] [address] * (ABNORMAL) LIPID PROFILE (07/10/2010 1:10 PM WATER RESOURCES BUSINESS SEGMENT LEADER) Cholesterol 143 < 200 mg/dl mg/dl [facility] Triglycerides 94 < 150 mg/dl mg/dl [facility] HDL Cholesterol 39(L) > 40 mg/dl mg/dl [facility] LDL Calculated 85 < 100 mg/dl mg/dl [facility] Chol HDL Ratio 3.7 [facility] Comment Lipid Reference Ranges provided by [place]. [facility] BLOOD SPECIMEN / Unknown 07/10/2010 1:10 PM WATER RESOURCES BUSINESS SEGMENT LEADER 07/10/2010 1:10 PM WATER RESOURCES BUSINESS SEGMENT LEADER Radha Jordan MD LAB - CHEMISTRY CHRISTI GABRIEL [facility] [address] [place] [address] * US ABDOMEN LIMITED (07/09/2010 11:33 AM WATER RESOURCES BUSINESS SEGMENT LEADER) Anatomical Region Laterality Modality Abdomen Ultrasound 07/09/2010 12:1 0 PM WATER RESOURCES BUSINESS SEGMENT LEADER Narrative 07/09/2010 12:19 PM WATER RESOURCES BUSINESS SEGMENT LEADER Exam: Abdominal sonogram Date: 07/09/2010 The liver [...] * CALCIUM IONIZED BLOOD (07/09/2010 5:35 AM WATER RESOURCES BUSINESS SEGMENT LEADER) pH 7.389 7.35-7.45 (art) [facility] Calcium Ionized 1.26 mmol/L [facility] Calcium Ionized Adjusted 1.25 1.15 - 1.29 mmol/L [facility] Specimen Type/Condition Blood Gas Cap/ABL [facility] BLOOD SPECIMEN SUBMITTED IN HEPARINIZED COLLECTION TUBE / Unknown 07/09/2010 5:35 AM WATER RESOURCES BUSINESS SEGMENT LEADER 07/09/2010 5:48 AM WATER RESOURCES BUSINESS SEGMENT LEADER Radha Jordan MD LAB - CHEMISTRY CHRISTI GABRIEL [facility] Organization Address City/State/ZIP Co de Phone Number [facility] [address] [place] [address] Care Teams Flight Test Shop Mechanic Relationship Specialty Start Date End Date Douglas Shah MD [address] [facility] [address] [place] [address] PCP - General 07/08/10
--- OUTSIDE RECORDS SUMMARY | 2024-07-21 20:33 | XMS_ITS | Referral Summary ---
Author Organization [facility] Address [address] [place] [address] Care Team Providers Care Screw Cutter Name Role Phone Douglas Shah MD Primary Care Provider [phone] Source Comments [facility],non-owned Affiliates and Associated Physician Practices is amultiple site organization consisting of ambulatory clinics and hospital sitesin [place], [place], [place] and [place]. This disclosure is being madepursuant to the Care Everywhere program and may not contain all information available regarding this patient. Last updated 18.[employer] Allergies No known active allergies Medications Be [...] PM CDT Pulse 102 07/11/2010 9:15 AM FLOUR WORKER Temperature 36.6 C (97.8 F) 07/11/2010 9:15 AM FLOUR WORKER Respiratory Rate 24 07/11/2010 9:15 AM FLOUR WORKER Oxygen Saturation - - Inhaled Oxygen Concentration - - Weight 20.4 kg (44 lb 14.4 oz) 08/02/2010 1:04 P M CDT Height 117.2 cm (3' 10.14 ) 08/02/2010 1:04 PM C DT Bepggx-ybt-Exboct Percentile 34.06% 08/02/2010 1 :04 PM CDT Growth Chart: CDC (Girls, 2- 20 Years) Body Mass Index 14.83 08/02/2010 1:04 PM CDT Body Mass Index Percentile 39.27% 08/02/2010 1:0 4 PM CDT Growth Chart: CDC (Girls, 2- 20 Years) Plan of Treatment Not on file Care Teams Screw Cutter Relationship Specialty Start Date End Date Douglas Shah MD [address] [address] PCP - General 07/08/10
--- OUTSIDE RECORDS SUMMARY | 2024-07-21 20:33 | XMS_ITS | Continuity of Care Document ---
Author Organization [facility] Address [address] [place] [address] [address] [place] [address] Phone Care Team Providers Care Crown Assembly Machine Operator Name Role Phone Mobley OD, Gianni Unavailable Unavailable Procedures Procedure Date Eye Exam, New Patient Refraction Advance Directives Directive Yes / No Effective Date File Name No Information Encounters Encounter Description Practice Location Reason(s) For Visit Diagnoses Date Provider Providers Copied on Encounter [facility], [address], [place], [place], [id number], [place] tel:[phone] [address] [facility] [place] No Information 1-201 0 Mobley OD Gainni. [address] [place] , [address], [place], [address], [place]. tel:[phone] Family History Family Member Type Diagnosis Age At Onset No Information Payers Payer name Insurance type Covered constitution party ID Authoriza tion(s) Medicaid [facility] [id number] Social History Type Description Quantity Date Captured [...]
--- OUTSIDE RECORDS SUMMARY | 2024-07-21 20:33 | XMS_ITS | Clinical Summary ---
Author Organization [facility] Address [address] [place] [address] Care Team Providers Care Residential Concierge Name Role Phone Douglas Shah MD Primary Care Provider [phone] Source Comments [facility],non-owned Affiliates and Associated Physician Practices is amultiple site organization consisting of ambulatory clinics and hospital sitesin [place], [place], [place] and [place]. This disclosure is being madepursuant to the Care Everywhere program and may not contain all information available regarding this patient. Last updated 18.[employer] Allergies No known active allergies Medications Be [...] PM CDT Pulse 102 07/11/2010 9:15 AM QUICK PRINT OPERATOR Temperature 36.6 C (97.8 F) 07/11/2010 9:15 AM QUICK PRINT OPERATOR Respiratory Rate 24 07/11/2010 9:15 AM QUICK PRINT OPERATOR Oxygen Saturation - - Inhaled Oxygen Concentration - - Weight 20.4 kg (44 lb 14.4 oz) 08/02/2010 1:04 P M CDT Height 117.2 cm (3' 10.14 ) 08/02/2010 1:04 PM C DT Pnhqty-zsd-Aqbogp Percentile 34.06% 08/02/2010 1 :04 PM CDT [...] age to complete this topic Care Teams Residential Concierge Relationship Specialty Start Date End Date Douglas Shah MD [address] [facility] [address] [facility] [address] [place] [address] PCP - General 07/08/10
[2024-07-21 20:43] VITALS: BP 113/65; PULSE 134
[2024-07-21 20:45] VITALS: BP 110/68; PULSE 126
[2024-07-21 21:00] VITALS: BP 116/63; PULSE 126
[2024-07-21 21:15] VITALS: BP 115/70; PULSE 116
[2024-07-21 21:16] LABS: Add Urine Microscopic? YES; Appearance Urine Cloudy (Clear); Bacteria Urine 4+ /hpf; Bilirubin Urine Negative (Negative); Blood Urine Negative (Negative); Color Urine Yellow (Yellow); Glucose Urine UA Negative (Negative); Ketones Urine Trace mg/dL (Negative); Leukocyte Esterase Ur 3+ LEU/UL (Negative); Need Manual Microscopic Reviewed; Nitrate Urine Negative (Negative); Protein Urine Trace mg/dL (Negative); RBC Urine 0-2 /hpf (0-2); Specific Grav Ur 1.025 (1.001-1.035); Squamous Epithelial Cell Urine Moderate /hpf (Few); WBC Urine >100 /hpf (0-3)
[2024-07-21 21:30] VITALS: BP 112/67; PULSE 115; BMI 33.5
--- NOTE | 2024-07-21 21:30 | OBADM ---
This patient, Kate Tovar, admitted to the OB room OB Post 117 for observation. Patient/family oriented to hospital policies and general routines including ID bracelet, bed and alarms, visiting hours, pain management, procedures, bathroom and other care routines, personal items, smoking policy, room service/diet, and visiting hours. Patient/Family are encouraged to report perceived risks to care and to ask questions if they do not understand what they are told or what they should do.
[2024-07-21] MEDS: NITROFURANTOIN MONOHYD MACROCR 100 MG CAP PO (21:38)
--- NOTE | 2024-07-22 07:23 | PM.OBTRLD ---
OB - Triage/Final Diagnosis Visit Information Reason for evaluation: other (urinary tract infection) Comments/Additional reasons for admission: I have assessed the risk for this patient, aKte Tovar, and determined that she would benefit from observation care. Evaluation Laboratory results: Laboratory Tests 07/21/24 20:37 Urine Color Yellow Urine Appearance Cloudy H Urine pH 6.0 Ur Specific [place] 1.025 Urine Protein Trace Urine Glucose (UA) Negative Urine Ketones Trace H Ur Blood (Man) Negative Urine Nitrate Negative Urine Bilirubin Negative Urine Urobilinogen 1.0 Add Ur Microanalysis Reviewed Leukocyte Esterase Rfl 3+ H Urine RBC 0-2 Urine WBC >100 H Ur Squamous Epith Cells Moderate Urine Bacteria 4+ H Urine Casts 6-10 Vital signs: Vital Signs - 24 hr 07/21/24 20:43 07/21/24 20:45 07/21/24 21:00 Pulse Rate 134 H 126 H 126 H Blood Pressure 113/65 110/68 116/63 07/21/24 21:15 07/21/24 21:30 Pulse Rate 116 H 115 H Blood Pressure 115/70 112/67
== END 2024-07-21 21:40 | disposition home or self-care (01) ==
PROVIDERS: Admitting Provider Obstetrics & Gynecology; Visit Provider Obstetrics & Gynecology
DX: O23.43 Unspecified infection of urinary tract in pregnancy, third trimester (principal); N39.0 Urinary tract infection, site not specified; Z3A.34 34 weeks gestation of pregnancy
CPT/HCPCS: 81001; A9270; G0378; G0379

== ENCOUNTER 2024-08-25 19:34 | Observation (INO) | payer OTHER, SELFPAY ==
--- OUTSIDE RECORDS SUMMARY | 2024-08-25 22:00 | XMS_ITS | Clinical Summary ---
Author Organization [facility] [facility] Address [address] [place] [address] Care Team Providers Care Peoplesoft Fscm Developer Name Role Phone Douglas Shah MD Primary Care Provider [phone] Source Comments [facility],non-owned Affiliates and Associated Physician Practices is amultiple site organization consisting of ambulatory clinics and hospital sitesin [place], [place], [place] and [place]. This disclosure is being madepursuant to the Care Everywhere program and may not contain all information available regarding this patient. Last updated 18.[employer] Allergies No known active allergies Medications * Be aware that medications may not be up to date on this document. Alwaysverify current medications with the patient. No known [...] drink = 0.6 oz pur e alcohol) Comments Unknown Sex and Gender Information Value Date Recorded Sex Assigned at Not on file Legal Sex Female 5:44 AM DIE MAKER TRIM Gender Identity Not on file Sexual Orientation Not on file Last Filed Vital Signs Vital Sign Reading Time Taken Comments Blood Pressure 104/54 08/02/2010 1:04 PM CDT Pulse 102 07/11/2010 9:15 AM DIE MAKER TRIM Temperature 36.6 C (97.8 F) 07/11/2010 9:15 AM DIE MAKER TRIM Respiratory Rate 24 07/11/2010 9:15 AM DIE MAKER TRIM Oxygen Saturation - - Inhaled Oxygen Concentration - - Weight 20.4 kg (44 lb 14.4 oz) 08/02/2010 1:04 P M CDT Height 117.2 cm (3' 10.14 ) 08/02/2010 1:04 PM C DT Xbityz-dgu-Qujvmr Percentile 34.06% 08/02/2010 1 :04 PM CDT [...] SCREENING 2020 MENINGOCOCCAL (Group B) VACC INE SHARED DECISION-MAKING (1 of 2 - Standard) 2020 HEPATITIS C SCREENING 09/19/2022 DTAP/TDAP/TD VACCINES (1 - Tdap) 09/24/2023 HEPATITIS B VACCINE (1 of 3 - 19+ 3-dose series) 09/24/2023 COVID-19 VACCINE (1 - 2023-2 5 season) 2024 DEPRESSION SCREENING 05/15/2024 INFLUENZA VACCINE (Season Ended) 2025 ZOSTER VACCINE (1 of 2) 2054 HIB VACCINE Aged Out No longer eligi ble based on patient's age to complete this topic MENINGOCOCCAL GROUPS A/C/Y/W VACCINE Aged Out No longer eligible b ased on patient's age to complete this topic PNEUMOCOCCAL VACCINE Aged Out No long er eligible based on patient's age to complete this topic Care Teams Peoplesoft Fscm Developer Relationship Specialty Start Date End Date Douglas Shah MD [address] [facility] [address] [place] [address] PCP - General 07/08/10
--- OUTSIDE RECORDS SUMMARY | 2024-08-25 22:00 | XMS_ITS | CONTINUITY OF CARE DOCUMENT ---
Author Name nicholasdaisha, nicholasdaisha Address Unknown Organization [facility] Address [address] [place] [address] Phone [phone] Care Team Providers Care Potato Inspector Name Role Phone Shahid OSEGUERA, Eloy Unavailable [phone] VALERIA SOLIS MD Unavailable VALERIA SOLIS MD Unavailable INSURANCE PROVIDERS Payer name Policy type / Coverage type [place] red constitution party ID [facility] CHOICE PLUS Commercial insuran company [id number] HEALTHCARE AND FAMILY SERVICES Medicaid 1 [id number]
--- OUTSIDE RECORDS SUMMARY | 2024-08-25 22:00 | XMS_ITS | Continuity of Care Document ---
Author Organization [facility] Address [address] [place] [address] [address] [place] [address] Phone Care Team Providers Care Fig Caprifier Name Role Phone Mobley OD, Gianni Unavailable Unavailable Procedures Procedure Date Eye Exam, New Patient Refraction Advance Directives Directive Yes / No Effective Date File Name No Information Encounters Encounter Description Practice Location Reason(s) For Visit Diagnoses Date Provider Providers Copied on Encounter [facility], [address], [place], [place], [address], [place] tel:[phone] [address] [facility] [place] No Information 1-201 0 Mobley OD Gianni. [address] [place] , [address], [place], [address], [place]. tel:[phone] Family History Family Member Type Diagnosis Age At Onset No Information Payers Payer name Insurance type Covered libertarian ID Authoriza tion(s) Medicaid [facility] [id number] Social History Type Description Quantity Date Captured [...]
[2024-08-25 22:04] VITALS: BMI 31.4
--- NOTE | 2024-08-25 22:04 | OBADM ---
This patient, Kate Tovar, admitted to the OB room Labor/Delivery/Recovery 105 for observation. Patient/family oriented to hospital policies and general routines including ID bracelet, bed and alarms, visiting hours, pain management, procedures, bathroom and other care routines, personal items, smoking policy, room service/diet, and visiting hours. Patient/Family are encouraged to report perceived risks to care and to ask questions if they do not understand what they are told or what they should do.
[2024-08-25 23:24] LABS: OBXCEM ROM Plus Negative (Negative)
--- NOTE | 2024-08-26 08:10 | PM.OBTRLD ---
OB - Triage/Final Diagnosis Visit Information Reason for evaluation: threatened labor Comments/Additional reasons for admission: I have assessed the risk for this patient, Kate Tovar, and determined that she would benefit from observation care. Evaluation Laboratory results: Laboratory Tests 08/25/24 20:08 Membranes Rupture Rom plus negative
== END 2024-08-25 23:05 | disposition home or self-care (01) ==
PROVIDERS: Admitting Provider Obstetrics & Gynecology; Visit Provider Obstetrics & Gynecology
DX: O47.1 False labor at or after 37 completed weeks of gestation (principal); Z3A.38 38 weeks gestation of pregnancy
CPT/HCPCS: 84112; G0378; G0379

== ENCOUNTER 2024-08-26 10:12 | Observation (INO) | payer OTHER, SELFPAY ==
--- NOTE | ~2024-08-26 | US_ITS ---
EXAMINATION: US OB limited DATE: 08/26/2024 11:28 INDICATION: Vaginal bleeding during third trimester of . TECHNIQUE: Real-time ultrasound of the pelvis was performed. The interpreting radiologist was not pre sent for the study. COMPARISON: None. FINDINGS: There is a single living fetus in vertex presentation. The normal-appearing placenta is anterior and not low-lying. No evident subchorionic hematoma. heart rate is 148 beats per minute (bpm). The amniotic fluid volume is subjectively normal with normal deepest vertical pocket measurement of 4.3 cm. IMPRESSION: 1. Single living fetus in vertex presentation with heart rate of 148 bpm. 2. Normal appearing anterior placenta which is not low-lying. Reviewed, dictated and finalized at location A. IMPRESSION: 1. Single living fetus in vertex presentation with heart rate of 148 bpm . 2. Normal appearing anterior placenta which is not low-lying.
[2024-08-26 10:25] VITALS: BMI 31.4
[2024-08-26 11:00] VITALS: TEMP 37.6
--- OUTSIDE RECORDS SUMMARY | 2024-08-26 12:21 | XMS_ITS | Continuity of Care Document ---
Author Organization [facility] Address [address] [place] [address] [address] [place] [address] Phone Care Team Providers Care Process Equipment Operator Name Role Phone Mobley OD, Gianni Unavailable Unavailable Procedures Procedure Date Eye Exam, New Patient Refraction Advance Directives Directive Yes / No Effective Date File Name No Information Encounters Encounter Description Practice Location Reason(s) For Visit Diagnoses Date Provider Providers Copied on Encounter [facility], [address], [place], [place], [address], [place] tel:[phone] [address] [facility] [place] No Information 1-201 0 Mobley OD Gianni. [address] [facility] [place] , [address], [place], [address], [place]. tel:[phone] Family History Family Member Type Diagnosis Age At Onset No Information Payers Payer name Insurance type Covered constitution party ID Authoriza tion(s) Medicaid [facility] [id number] Social History Type Description Quantity Date Captured [...]
--- OUTSIDE RECORDS SUMMARY | 2024-08-26 12:21 | XMS_ITS | CONTINUITY OF CARE DOCUMENT ---
Author Name nicholasdaisha, nicholasdaisha Address Unknown Organization [facility] Address [address] [place] [address] Phone [phone] Care Team Providers Care Senior Clinical Study Manager Name Role Phone Shahid OSEGUERA, Eloy Unavailable [phone] VALERIA SOLIS MD Unavailable [phone] VALERIA SOLIS MD Unavailable INSURANCE PROVIDERS Payer name Policy type / Coverage type [place] red alliance party ID [facility] CHOICE PLUS Commercial insuran company [id number] HEALTHCARE AND FAMILY SERVICES Medicaid 1 [id number]
--- OUTSIDE RECORDS SUMMARY | 2024-08-26 12:21 | XMS_ITS | Clinical Summary ---
Author Organization [employer] [facility] Address [address] [place] [address] Care Team Providers Care Gas Engine Operator Name Role Phone Douglas Shah MD Primary Care Provider [phone] Source Comments [facility],non-owned Affiliates and Associated Physician Practices is amultiple site organization consisting of ambulatory clinics and hospital sitesin [place], [place], [place] and [place]. This disclosure is being madepursuant to the Care Everywhere program and may not contain all information available regarding this patient. Last updated 18.[employer] Allergies No known active allergies Medications * [...] on file Legal Sex Female 5:44 AM CERTIFIED PESTICIDE APPLICATOR Gender Identity Not on file Sexual Orientation Not on file Last Filed Vital Signs Vital Sign Reading Time Taken Comments Blood Pressure 104/54 08/02/2010 1:04 PM CDT Pulse 102 07/11/2010 9:15 AM CERTIFIED PESTICIDE APPLICATOR Temperature 36.6 C (97.8 F) 07/11/2010 9:15 AM CERTIFIED PESTICIDE APPLICATOR Respiratory Rate 24 07/11/2010 9:15 AM CERTIFIED PESTICIDE APPLICATOR Oxygen Saturation - - Inhaled Oxygen Concentration - - Weight 20.4 kg (44 lb 14.4 oz) 08/02/2010 1:04 P M CDT Height 117.2 cm (3' 10.14 ) 08/02/2010 1:04 PM C DT Vcdlhy-edv-Bremln Percentile 34.06% 08/02/2010 1 :04 PM CDT [...] age to complete this topic Care Teams Gas Engine Operator Relationship Specialty Start Date End Date Douglas Shah MD [address] [facility] [address] [place] [address] PCP - General 07/08/10
--- NOTE | 2024-08-27 11:17 | PM.OBTRLD ---
OB - Triage/Final Diagnosis Visit Information Reason for evaluation: threatened labor Comments/Additional reasons for admission: I have assessed the risk for this patient, Kate Tovar, and determined that she would benefit from observation care.
== END 2024-08-26 12:14 | disposition home or self-care (01) ==
PROVIDERS: Admitting Provider Obstetrics & Gynecology; Visit Provider Obstetrics & Gynecology
DX: O47.1 False labor at or after 37 completed weeks of gestation (principal); Z3A.38 38 weeks gestation of pregnancy
CPT/HCPCS: 76815; G0378; G0379

== ENCOUNTER 2024-08-28 05:47 | Inpatient (IN) | payer OTHER, MEDICAID, SELFPAY ==
[2024-08-28] VITALS (26 sets, daily range): BP systolic 96–154; BP diastolic 56–103; PULSE 88–138; RESP 18; TEMP 36.7–37.2; O2SAT 96–100; BMI 31.4
--- OUTSIDE RECORDS SUMMARY | 2024-08-28 06:40 | XMS_ITS | Clinical Summary ---
Author Organization [facility] Address [address] [place] [address] Care Team Providers Care Door Repairer Bus Name Role Phone Douglas Shah MD Primary Care Provider [phone] Source Comments [facility],non-owned Affiliates and Associated Physician Practices is amultiple site organization consisting of ambulatory clinics and hospital sitesin [place], [place], [place] and [place]. This disclosure is being madepursuant to the Care Everywhere program and may not contain all information available regarding this patient. Last updated 18.[employer] Allergies No known active allergies Medications * [...] on file Legal Sex Female 5:44 AM GLASS BULB SILVERER Gender Identity Not on file Sexual Orientation Not on file Last Filed Vital Signs Vital Sign Reading Time Taken Comments Blood Pressure 104/54 08/02/2010 1:04 PM CDT Pulse 102 07/11/2010 9:15 AM GLASS BULB SILVERER Temperature 36.6 C (97.8 F) 07/11/2010 9:15 AM GLASS BULB SILVERER Respiratory Rate 24 07/11/2010 9:15 AM GLASS BULB SILVERER Oxygen Saturation - - Inhaled Oxygen Concentration - - Weight 20.4 kg (44 lb 14.4 oz) 08/02/2010 1:04 P M CDT Height 117.2 cm (3' 10.14 ) 08/02/2010 1:04 PM C DT Xjavuu-rlo-Zgpwqa Percentile 34.06% 08/02/2010 1 :04 PM CDT [...] age to complete this topic Care Teams Door Repairer Bus Relationship Specialty Start Date End Date Douglas Shah MD [address] [facility] [address] [place] [address] PCP - General 07/08/10
--- OUTSIDE RECORDS SUMMARY | 2024-08-28 06:40 | XMS_ITS | Continuity of Care Document ---
Author Organization [facility] Address [address] [place] [address] [address] [place] [address] Phone Care Team Providers Care Electrical Designer Drafter Name Role Phone Mobley OD, Gianni Unavailable Unavailable Procedures Procedure Date Eye Exam, New Patient Refraction Advance Directives Directive Yes / No Effective Date File Name No Information Encounters Encounter Description Practice Location Reason(s) For Visit Diagnoses Date Provider Providers Copied on Encounter [facility], [address], [place], [place], [id number], [place] tel:[phone] [facility] [place] No Information 1-201 0 Mobley OD Gianni. [address] [facility] [place] , [address], [place], [address], [place]. tel:[phone] Family History Family Member Type Diagnosis Age At Onset No Information Payers Payer name Insurance type Covered republican ID Authoriza tion(s) Medicaid [facility] [id number] Social History Type Description Quantity Date Captured [...]
--- OUTSIDE RECORDS SUMMARY | 2024-08-28 06:40 | XMS_ITS | CONTINUITY OF CARE DOCUMENT ---
Author Name nicholasdaisha, nicholasdaisha Address Unknown Organization [facility] Address [address] [place] [address] Phone [phone] Care Team Providers Care It Support Analyst Name Role Phone Shahid OSEGUERA, Eloy Unavailable [phone] VALERIA SOLIS MD Unavailable VALERIA SOLIS MD Unavailable INSURANCE PROVIDERS Payer name Policy type / Coverage type [place] [employer] party ID [facility] CHOICE PLUS Commercial insuran company [id number] HEALTHCARE AND FAMILY SERVICES Medicaid 1 [id number]
[2024-08-28] MEDS: fentaNYL CITRATE INJ (*CRX) 100 MCG/2 ML VIAL 50 MCG IV PUSH (07:05)
[2024-08-28 07:06] LABS: Basophils Percent Auto 0.2 % (0.2-1.2); Eosinophils Absolute Auto 0.1 K/mm3 (0-0.3); Eosinophils Percent Auto 0.7 % (0-4.4); Hematocrit 40.1 % (37.0-47.0); Immature Granulocyte Absolute 0.19 K/mm3 (0.00-0.031); Immature Granulocyte Percent A 1.2 % (0-0.5); Lymphocytes Absolute Auto 3.34 K/mm3 (0.9-3.2); Lymphocytes Percent Auto 21.1 % (18.3-44.2); Mean Corpuscular HGB Conc 32.4 g/dl (32-36); Mean Corpuscular Hemoglobin 29.1 pg (26-34); Mean Corpuscular Volume 89.9 fl (80-100); Mean Platelet Volume 11.7 fl (7.4-10.4); Monocytes Absolute Auto 1.2 K/mm3 (0.1-0.6); Monocytes Percent Auto 7.8 % (2.6-8.5); Neutrophils Absolute Auto 10.9 K/mm3 (1.3-6.7); Platelet Count Result 229 k/mm3 (150-375); Red Blood Count 4.46 M/mm3 (4.2-5.4); Red Cell Distribution Width 13.2 % (11.5-14.5); White Blood Count 15.8 K/mm3 (4.5-10.0)
--- NOTE | 2024-08-28 07:15 | LDADM ---
This patient, Kate Tovar, was admitted to Labor/Delivery/Recovery 106 on 08/28/24 at 05:47. Plans for labor, pain management and were discussed with patient. Patient/family oriented to hospital policies and general routines including ID bracelet, bed and alarms, visiting hours, pain management, procedures, bathroom and other care routines, personal items, smoking policy, room service/diet and guest tray routines, infant security routines, and visiting hours. Patient/Family are encouraged to report perceived risks to care and to ask questions if they do not understand what they are told or what they should do. See OBIX for further documentation.
[2024-08-28 07:32] LABS: OBXCEM ROM Plus Positive (Negative)
[2024-08-28] MEDS: ONDANSETRON INJ 4 MG/2 ML VIAL IV PUSH (07:37)
[2024-08-28 08:03] LABS: HIV 1/2 Ab P24 Ag Result Negative (Negative)
[2024-08-28] MEDS: LACTATED RINGERS 1,000 ML 125 ML IV CONT (08:16)
--- NOTE | 2024-08-28 08:58 | WPDANESEPP ---
Anes - Eval Pre Procedure Procedure: Labor epidural Date/Time: 08/28/24 08:58 Surgeon: Mali Preop Diagnosis: Pain during labor Pre Op Diagnosis: leaking,contractions Patient Data Age: 18 Gender: F Height: 1.63 m Weight: 83 kg Last Vital Signs Pulse 99 08/28/24 08:15 BP 130/85 08/28/24 08:15 Pulse Ox 97 08/28/24 07:08 O2 Del Method Room Air 08/28/24 07:14 Allergies Allergy/AdvReac Type Severity Reaction Status Date / Time levonorgestrel (From Plan B) Allergy Mild Itching Verified 08/28/24 07:04 Home Medications ?Medication ?Instructions ?Recorded ?Confirmed ?Type vit no.95-ferrous 1 tablet PO BID 06/18/24 08/28/24 History fumarate 28 mg-folic acid 800 mcg tablet () valacyclovir 500 mg tablet 500 mg PO BID #60 tabs 08/06/24 08/28/24 Rx (Valtrex) fluconazole 150 mg tablet 150 mg PO ONCE #2 tabs 08/27/24 Rx Laboratory Tests 08/28/24 08/28/24 06:38 07:00 WBC 15.8 H K/mm3 (4.5-10.0) RBC 4.46 M/mm3 (4.2-5.4) Hgb 13.0 g/dL (12.0-15.0) Hct 40.1 % (37.0-47.0) MCV 89.9 fl (80-100) MCH 29.1 pg (26-34) MCHC 32.4 g/dl (32-36) RDW 13.2 % (11.5-14.5) Plt Count 229 k/mm3 (150-375) MPV 11.7 H fl (7.4-10.4) Immature Gran % (Auto) 1.2 H % (0-0.5) Neut % (Auto) 69.0 % (45.5-73.1) Lymph % (Auto) 21.1 % (18.3-44.2) [place] % (Auto) 7.8 % (2.6-8.5) Eos % (Auto) 0.7 % (0-4.4) Baso % (Auto) 0.2 % (0.2-1.2) Lymph # (Auto) 3.34 H K/mm3 (0.9-3.2) [place] # (Auto) 1.2 H K/mm3 (0.1-0.6) Eos # (Auto) 0.1 K/mm3 (0-0.3) Baso # (Auto) 0.0 K/mm3 (0.0-0.1) Abs Immat Gran (auto) 0.19 H K/mm3 (0.00-0.031) Absolute Neuts (auto) 10.9 H K/mm3 (1.3-6.7) Absolute Nucleated RBC 0.000 K/mm3 (0.0-0.012) Nucleated RBC % 0.0 % (0.0-0.2) Membranes Rupture Rom plus positive (Negative) HIV 1&2 Ab/P24 Ag 4thGn Negative (Negative) Blood Type O Positive Antibody Screen Negative Patient hx anesthesia problems: none Family hx anesthesia problems: none Results Review: All pre-operative results and documents have been reviewed as part of the pre-operative evaluation. [facility] Past Medical History Medical History HSV-2 infection HSV-1 infection UTI (urinary tract infection) Irregular periods Skin lesion Pancreatitis Family History Family History Grandparent Cancer of kidney paternal grandmother Social History Social History Smoking status: Never smoker Second hand tobacco smoke exposure: Yes Alcohol intake: never Substance use: never Substance use type: does not use Do You Feel Safe in your Home?: Yes Lack of Transportation: No Lack of Food: Never True Current Housing: I Have Housing Concerned About Future Housing: No Difficulty Paying Gas/Electric Bills: No Difficulty Paying for Meds: No Currently Unemployed: No Education: High School Diploma/GED Difficulty w/ Childcare or Family Care: No Living arrangements: with family Additional living arrangements comments: lives with parents Occupation/Education: occupation 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
[2024-08-28 09:32] LABS: Syphilis IgG/IgM Antibody Negative (Negative)
[2024-08-28] MEDS: OXYTOCIN 30 UNITS/NS 500 ML 30 UNITS/500 ML BAG 999 UNITS IV CONT (09:49)
--- NOTE | 2024-08-28 10:09 | WPDHPUPDATE1 ---
History and Physical Update Update Date/Time: 08/28/24 10:09 History and Physical has been reviewed, including an updated exam of the patient. There are NO changes in the patient's condition. Risks, benefits, and alternatives have been discussed and questions answered. Patient agrees to proceed with procedure.
--- NOTE | 2024-08-28 10:09 | WPDOBADMIT ---
Obstetrics - Admit Note Admission Note: record reviewed. No pertinent additions to the history and/or any subsequent changes in the physical findings that are not consistent with the expected course of the were found. Additions to the history and/or subsequent changes in the physical findings follow. None.
--- NOTE | 2024-08-28 10:10 | PM.OBPRVD ---
OB - Vaginal Delivery Note Procedure Delivery date: 08/28/24 Induction method: None Delivery monitor: External FHT and External Uterine Route of delivery: Episiotomy description: None Laceration Description: Perineal - 2nd Degree Delivery repair: chromic Specimen: Yes Quantitative Blood Loss (ml): 300 Anesthesia type: Local Disposition: Floor Complications: No immediate complications Narrative: Patient prepped draped usual manner for this procedure. Maternal expulsive efforts readily deliver vertex, nuchal cord was reduced, and the rest of baby delivered without difficulty. Cord was clamped and cut and placenta delivered spontaneously. Evaluation revealed second-degree laceration which was repaired with 2-0 chromic running interlocking manner to approximate the vaginal mucosa, deep layer was then approximated as well and a subcuticular layer to approximate the perineum. Prior to this being done 1% lidocaine was injected throughout for anesthesia. This point uterus was well contracted with minimal bleeding, no other concerns or issues and immediate postoperative condition of mother and baby both excellent. [place] Baby Gestational Age by Date: 38 gender: Female presentation: vertex Placenta delivery description: Spontaneous Cord Vessel Description: 3 Vessels, Nuchal Cord and Reduced
[2024-08-28] MEDS: OXYTOCIN 30 UNITS/NS 500 ML 30 UNITS/500 ML BAG 125 UNITS IV CONT (10:25)
[2024-08-28] MEDS: ACETAMINOPHEN 325 MG TABLET 650 MG PO (12:18)
[2024-08-28] MEDS: BENZOCAINE 20% AER SPR (*SP) 56 GM CAN 1 SPRAY TOPICAL (12:19)
[2024-08-28] MEDS: WITCH HAZEL 40 PADS 1 PAD TOPICAL (12:19)
--- NOTE | 2024-08-28 18:52 | PC.NURSE ---
1040 Introductions were made, then consulted with patient to assess needs related to . Mother led the conversation with her?plans to feed?her and the?experience so far. Mother and nursery RN had attempted to latch baby but mother does have flat nipples. RN pulled a nipple shield to try and baby was still not able to latch. Per mother she has family history of flat nipples and not being able to breastfeed but family members were able to pump and bottle feed and her plan was breast and bottle as well. RN will set her up with a [employer] pump once she is upstairs on post , right now she wants to feed baby an Enfamil bottle as baby is also receiving blood sugars checks. Encouraged understanding of the benefits of skin to skin (demonstrating unwrapping and placing upright on her chest), stimulating with massage touch, changing positions to encourage wakefulness, how to watch for early feeding cues, responsive feeding, feeding on demand (aiming for 8-12 times in 24 hours, about every 2-3 hours), milk production, building/maintaining a milk supply, duration of feeding, signs of adequate intake/output and how to record on the feeding sheet. Mother works well with her infant with encouragement and education. Parents voiced understanding of information, demonstrated learning and will call if there is a request for assistance. Reported to the Primary RN. 1430 Mother called out for RN to room to assist with latching using the nipple shield. Reviewed positioning and ear, shoulder, hip alignment, supporting the breast to facilitate a deep latch, asymmetrical latch (off-center), leading with the chin with a big, open, wide gape and body close to mother. Infant latched optimally to the [right] breast in [football] position with the nipple shield. For nipple shield use we reviewed good handwashing, cleaning the nipple shield and the appropriate way to apply and use as a tool. Discussed with mom the nipple shield precautions, possible complications associated with the risks and benefits. Reviewed practicing with a nipple shield, then without and how to protect the milk supply and production, talked with mother about the 15-15-15 plan and is going to start with this feeding. Mother to call after baby is done nursing and has taken the bottle and RN will set up her breast pump. Education given to the mother of how to visualize the suckling (with good rocking jaw motion), swallows (dropping of the lower jaw) and how to listen for drinking at the breast (the ka sound). was [able] to maintain latch without pain to mother protecting the nipple with optimal positioning and latching. Reviewed comfort measures of healing with a warm, wet washcloth to rinse breast, then leave open to air-dry, good handwashing when or touching the breast/nipples to prevent infection. Mother voiced understanding of skin to skin, stimulating with massage touch, responsive feedings, hand expressed colostrum, talking to infant to encourage if it has been 2 -2.5 hours since the start of the last , to call if infant does not latch, or if there is discomfort with . Resources used for education were facilitated with the [visual educational handouts/ tool/mom and baby guide], Inpatient/outpatient resources provided with feeding sheet, name written on the communication board, and the mom/baby guide. Reported to the Primary RN. 1530 Breast pump provided due to nipple shield use, [employer] Pump given. Instructions given on cleaning, care, usage, that there should be no pain, pumping schedule for milk production, collection, and storage of human milk. Patient was assessed for correct placement, flange size, to pump for comfort and nipple stretching/stimulation for adequate milk production every 3 hours (8 times in 24 hours) 1-2 times at night. Parents are encouraged to record the pumping schedule on the feeding sheet.?Mother voiced understanding of the education shared along with mom/baby guide and the pump measurement, flange fit handout for additional resource information. Reported to the Primary RN. 0647 Patient face sheet and Breast Pump Order/Agreement faxed to [facility] Medical #[phone], fax was successful, copied placed in [facility] Medical folder. Patient also received copy of Breast Pump Order/Agreement.
[2024-08-29 03:51] VITALS: BP 121/62; PULSE 104; RESP 16; TEMP 36.9; O2SAT 98
[2024-08-29 05:39] LABS: Hemoglobin 10.7 g/dL (12.0-15.0)
[2024-08-29 08:25] VITALS: BP 110/71; PULSE 88; RESP 16; TEMP 36.9; O2SAT 97
[2024-08-29] MEDS: MULTIVIT/MIN/PREN/FOL AC/IRON TABLET 1 TAB PO (09:49)
[2024-08-29] MEDS: DOCUSATE SODIUM 100 MG CAPSULE PO ×2 (09:49→17:19)
[2024-08-29 20:45] VITALS: BP 119/72; PULSE 85; RESP 18; TEMP 36.6; O2SAT 99
--- NOTE | 2024-08-30 06:27 | P.DS_ITS ---
DS: Admitting Diagnosis Discharge Date 08/30/2024 Admitting Diagnosis DS: Discharge Diagnosis Discharge Diagnosis (1) , delivered: Code(s): O80 - Encounter for full-term uncomplicated delivery Status: Acute OB - DS: Summary OB Procedures : None OB Procedures Intrapartum: Spontaneous Vag Delivery OB Procedures: : None Peripartum Data Laceration Description: Perineal - 2nd Degree Episiotomy description: None Time Spent with Patient Time attestation: Total time spent providing and/or coordinating discharge services: DS: Data Data Completed and Pending Pending studies at discharge: Pending at discharge 08/28/24 09:50 Surgical [PTH] Routine Discharge Plan Discharge Discharging Clinician: Jad Samson Patient Disposition: Home Activity: as tolerated and pelvic rest Diet: as tolerated Patient Instructions: Antibiotic Form Patient Language: Djiboutian Stand Alone Forms: General Discharge Information Follow-up/Referrals: Jad Samson MD [Physician] - 4 Weeks Discharge Medications: New ibuprofen 600 mg Tablet 600 mg PO Q6H PRN (Reason: Cramping) Qty: 30 0RF Continued PNV cmb#95-ferrous fumarate-FA [] 28 mg iron- 800 mcg tablet 1 tablet PO BID Discontinued valacyclovir [Valtrex] 500 mg tablet 500 mg PO BID Qty: 60 1RF fluconazole 150 mg tablet 150 mg PO ONCE Qty: 2 0RF Rx Instructions: take 1 then 72 hours later take 2nd dose Date of admission: 08/28/24 05:47 Primary Care Provider: PHYSICIAN,INSTRUCTIONAL SUPPORT SPECIALIST Admitting Provider: Jad Samson Attending physician on admission: Jad Samson Condition: Stable
[2024-08-30 07:15] VITALS: BP 105/45; PULSE 68; RESP 16; TEMP 36.6; O2SAT 98
[2024-08-30 08:00] VITALS: PULSE 68; RESP 16; O2SAT 98
[2024-08-30] MEDS: DOCUSATE SODIUM 100 MG CAPSULE PO (09:12)
[2024-08-30] MEDS: MULTIVIT/MIN/PREN/FOL AC/IRON TABLET 1 TAB PO (09:12)
--- NOTE | 2024-08-30 11:38 | PC.NURSE ---
1100-Patient viewed the discharge video Mother & Baby Care, The First Two Weeks . Patient was given the opportunity and encouraged to ask questions. Patient verbalized understanding of information shared and has been given the mother/baby guide for home reference.
--- NOTE | 2024-08-30 14:29 | PC.NURSE ---
0817 Mother and father asleep in the room, CLC to return later this morning to see how is going. 0850 Consulted with mother concerning needs and she shared her ability to independently latch optimally without pain, she is using the nipple shield to latch last night but this morning she was able to latch the baby without the shield. CLC advised mother to continue to try with the shield as needed, use her breast pump after and then supplement. Mother is feeding appropriately for growth of infant and understands stimulating infant to eat if needed. Infant has had appropriate feedings in the last 24 hours meets the outcomes for weight, output, blood sugar and jaundice at this time. Reinforced understanding of milk production, transition of milk, signs of adequate intake, transition of stool, prevention/relief of engorgement, plugged ducts, mastitis, responsive watching for feeding cues, the different methods of stimulating infant to breastfeed 1-3 hours after the start of the last feeding, community resources, and when to call a provider using the resource of the feeding sheet along with the mom and baby guide. Mother voiced understanding of the information shared, is confident to continue effectively her infant at home, when to call for assistance, denies any additional assistance or education at this time. [facility] referral form signed by mother and faxed to the [place] office. Reported to the Primary RN.
[2024-08-31 11:05] VITALS: BP 111/73; PULSE 92; RESP 18; TEMP 36.8; O2SAT 98
== END 2024-08-30 11:13 | disposition home or self-care (01) | DRG 807 ==
LOC: ANHLDR 06:38 → ANHOB2 12:58
PROVIDERS: Admitting Provider Obstetrics & Gynecology; Visit Provider Obstetrics & Gynecology
DX: O70.1 Second degree perineal laceration during delivery (principal); Z37.0 Single live birth; O69.81X0 Labor and delivery complicated by cord around neck, without compression, not applicable or unspecified; O24.429 Gestational diabetes mellitus in childbirth, unspecified control; Z3A.39 39 weeks gestation of pregnancy
CPT/HCPCS: 36415; 84112; 85014; 85018; 85025; 86593; 86703; 86850; 86900; 86901; 88307; A9270; G0432; J2405; J2590; J2795; J3010; J7120

== ENCOUNTER 2025-02-12 09:17 | Outpatient (CLI) | payer OTHER, MEDICAID, SELFPAY ==
--- OUTSIDE RECORDS SUMMARY | 2009-12-02 04:00 | XMS_ITS | Continuity of Care Document ---
Author Organization [facility] Address [address] [place] [address] [address] [place] [address] Phone Care Team Providers Care Surveyor'S Assistant Name Role Phone Mobley OD, Gianni Unavailable Unavailable Procedures Procedure Date Eye Exam, New Patient Refraction Advance Directives Directive Yes / No Effective Date File Name No Information Encounters Encounter Description Practice Location Reason(s) For Visit Diagnoses Date Provider Providers Copied on Encounter [facility], [address], [place], [place], [id number], [place] tel:[phone] [facility] [place] No Information 1-201 0 Mobley OD Gianni. [address] [facility] [place] , [address], [place], [address], [place]. tel:[phone] Family History Family Member Type Diagnosis Age At Onset No Information Payers Payer name Insurance type Covered republican ID Authoriza tion(s) Medicaid [facility] [id number] Social History Type Description Quantity Date Captured [...]
[2025-02-12 10:38] LABS: Beta HCG Quantitative 107.37 mIU/ML
== END 2025-02-12 09:18 | disposition home or self-care (01) ==
LOC: ANHLAB 09:19
PROVIDERS: Visit Provider Obstetrics & Gynecology
DX: N91.0 Primary amenorrhea (principal)
CPT/HCPCS: 36415; 84702

== ENCOUNTER 2025-02-17 12:21 | Outpatient (CLI) | payer OTHER, MEDICAID, SELFPAY ==
--- OUTSIDE RECORDS SUMMARY | 2009-12-02 04:00 | XMS_ITS | Continuity of Care Document ---
Author Organization [facility] Address [address] [place] [address] [address] [place] [address] Phone Care Team Providers Care Supervisor Dyer Name Role Phone Mobley OD, Gianni Unavailable Unavailable Procedures Procedure Date Eye Exam, New Patient Refraction Advance Directives Directive Yes / No Effective Date File Name No Information Encounters Encounter Description Practice Location Reason(s) For Visit Diagnoses Date Provider Providers Copied on Encounter [facility], [address], [place], [place], [address], [place] tel:[phone] [facility] [place] No Information 1-201 0 Mobley OD Gianni. [address] [facility] [place] , [address], [place], [address], [place]. tel:[phone] Family History Family Member Type Diagnosis Age At Onset No Information Payers Payer name Insurance type Covered alliance party ID Authoriza tion(s) Medicaid [facility] [id number] Social History Type Description Quantity Date Captured [...]
[2025-02-17 13:41] LABS: Beta HCG Quantitative 1239.30 mIU/ML
== END 2025-02-17 12:22 | disposition home or self-care (01) ==
LOC: ANHLAB 12:22
PROVIDERS: Visit Provider Obstetrics & Gynecology
DX: N92.6 Irregular menstruation, unspecified (principal)
CPT/HCPCS: 36415; 84702

== ENCOUNTER 2025-03-10 12:12 | Emergency (ER) | payer OTHER, MEDICAID, SELFPAY ==
--- OUTSIDE RECORDS SUMMARY | 2009-12-02 04:00 | XMS_ITS | Continuity of Care Document ---
Author Organization [facility] Address [address] [place] [address] [address] [place] [address] Phone Care Team Providers Care Pediatric Licensed Practical Nurse Name Role Phone Mobley OD, Gianni Unavailable Unavailable Procedures Procedure Date Eye Exam, New Patient Refraction Advance Directives Directive Yes / No Effective Date File Name No Information Encounters Encounter Description Practice Location Reason(s) For Visit Diagnoses Date Provider Providers Copied on Encounter [facility], [address], [place], [place], [id number], [place] tel:[phone] [facility] [place] No Information 1-201 0 Mobley OD Gianni. [address] [facility] [place] , [address], [place], [address], [place]. tel:[phone] Family History Family Member Type Diagnosis Age At Onset No Information Payers Payer name Insurance type Covered constitution party ID Authoriza tion(s) Medicaid [facility], 1928–1983 [id number] Social History Type Description Quantity Date Captured Comments Sex Female Smoking Status No Information Chief Complaint And Reason For Visit No Information Reason For Referral Reason For Referral No Information History Of Present Illness Encounter Date Complaint History Of Prese nt Illness No Information Functional Status Date Functional Assessmen t No Information Instructions Date Instruction Additional Infor mation No Information Assessments Type Assessment Date No Information Patient Care Teams Name Effective Dates (start - stop) Status Members No Information
--- OUTSIDE RECORDS SUMMARY | 2009-12-02 04:00 | XMS_ITS | Continuity of Care Document ---
Author Organization [facility] Address [address] [place] [address] [address] [place] [address] Phone Care Team Providers Care Nut Tapper Name Role Phone Mobley OD, Gianni Unavailable Unavailable Procedures Procedure Date Eye Exam, New Patient Refraction Advance Directives Directive Yes / No Effective Date File Name No Information Encounters Encounter Description Practice Location Reason(s) For Visit Diagnoses Date Provider Providers Copied on Encounter [facility], [address], [place], [place], [address], [place] tel:[phone] [facility] [place] No Information 1-201 0 Mobley OD Gianni. [address] [facility] [place] , [address], [place], [address], [place]. tel:[phone] Family History Family Member Type Diagnosis Age At Onset No Information Payers Payer name Insurance type Covered constitution party ID Authoriza tion(s) Medicaid [facility] [id number] Social History Type Description Quantity Date Captured [...]
--- NOTE | ~2025-03-10 | US_ITS ---
EXAMINATION: US OB <=14 wk fetus w TV DATE: 03/10/2025 14:00 INDICATION: Abdominal cramping during 8 weeks TECHNIQUE: Real-time pelvic ultrasound utilizing both a transvaginal and transabdominal probe was performed. The interpreting radiologist was not present for the study. COMPARISON: None. FINDINGS: The uterus measures 10.3 x 8.0 x 6.1 cm. There is an intrauterine gestational sac. A yolk sac and pole are identified. The crown rump length measures 1.3 cm, which correlates with an estimated gestational age of 7 weeks and 4 days. heart motion is identified measuring 153 beats per minute (bpm) by M-mode Doppler. Small anechoic subchorionic hematoma along the anterior inferior margin of the gestational sac the majority measuring up to 1 mm in thickness with larger collection posteriorly measuring 13 x 5 mm. The right ovary measures 4.2 x 2.8 x 1.6 cm. There are a few subcentimeter anechoic cysts/follicles in the right ovary. The left ovary measures 4.8 x 4.0 x 2.5 cm. 2.8 cm peripherally hypoechoic, centrally anechoic likely corpus luteum cyst in the left ovary. Additional 2.1 subcentimeter anechoic left ovarian cyst. Vascular flow identified in both ovaries on color Doppler. There is no free fluid in the pelvis. IMPRESSION: 1. Single living fetus with heart rate of 153 bpm. 2. Gestational age by ultrasound of 7 weeks 4 day(s) +/- 4 day(s) with ultrasound estimated date of delivery (KATHIE) of 10/23/2025. 3. Small subchorionic hematoma. Reviewed, dictated and finalized at location A. IMPRESSION: 1. Single living fetus with heart rate of 153 bpm. 2. Gestational age by ultrasound of 7 weeks 4 day(s) +/- 4 day(s) with ultraso und estimated date of delivery (KATHIE) of 10/23/2025. 3. Small subchorionic hematoma.
[2025-03-10 12:25] VITALS: BP 113/88; PULSE 95; RESP 18; TEMP 36.4; O2SAT 99
[2025-03-10 12:31] VITALS: BP 113/88; PULSE 88; RESP 18; O2SAT 99
[2025-03-10 12:32] VITALS: O2SAT 100
[2025-03-10 12:39] LABS: Hematocrit 40.2 % (37.0-47.0); Hemoglobin 13.6 g/dL (12.0-15.0); Immature Granulocyte Percent A 0.7 % (0-0.5); Lymphocytes Absolute Auto 3.10 K/mm3 (0.9-3.2); Mean Corpuscular HGB Conc 33.8 g/dl (32-36); Mean Corpuscular Hemoglobin 29.4 pg (26-34); Mean Corpuscular Volume 86.8 fl (80-100); Nucleated Red Blood Cells Absolute Auto 0.000 K/mm3 (0.0-0.012); Nucleated Red Blood Cells Perc 0.0 % (0.0-0.2); Platelet Count Result 293 k/mm3 (150-375); Red Blood Count 4.63 M/mm3 (4.2-5.4); White Blood Count 10.1 K/mm3 (4.5-10.0)
--- NOTE | 2025-03-10 12:43 | ED.ABDPAIN ---
HPI - Abdominal Pain General Chief Complaint: Abdominal Pain Stated Complaint: sided pain abdominal pain, Nausea, dizzy, Time Seen by Provider: 03/10/25 12:20 Source: patient Mode of arrival: ambulatory Limitations: no limitations History of Present Illness HPI narrative: This is a very pleasant 19-year-old female patient with past medical history of pancreatitis as a child secondary to a viral cause, he was currently a at approximately 8 weeks gestation who is not yet established with OBGYN who comes to the emergency room with complaints of having lower abdominal pain radiating up towards her umbilicus region with some nausea without vomiting. Patient states the pain started just this morning. She denies urinary symptoms of burning, urgency, frequency or hematuria. She denies any fevers. She denies any diarrhea. Patient has not had any vaginal bleeding. First date of last menstrual period was January 24, 2025. She denies any complications with previous or delivery. Symptoms started approximately 6 hours prior to arrival. Related Data Date of Last Menstrual Period: 01/24/25 Patient : Yes Home Medications ?Medication ?Instructions ?Recorded ?Confirmed ?Last Taken ?Type vit no.95-ferrous 1 tablet PO BID 06/18/24 09/25/24 08/27/24 08:00 History fumarate 28 mg-folic acid 800 mcg tablet () Allergies Allergy/AdvReac Type Severity Reaction Status Date / Time levonorgestrel (From Plan B) Allergy Mild Itching Verified 03/10/25 12:33 Review of Systems Review of Systems: All systems reviewed & are unremarkable except as noted in HPI and below PMFSH Past Medical History Medical History HSV-2 infection HSV-1 infection UTI (urinary tract infection) Irregular periods Skin lesion Pancreatitis Family History Family History Grandparent Cancer of kidney paternal grandmother Social History Social History Smoking status: Never smoker Second hand tobacco smoke exposure: Yes Alcohol intake: never Substance use: never Substance use type: does not use Do You Feel Safe in your Home?: Yes Lack of Transportation: No Lack of Food: Never True Current Housing: I Have Housing Concerned About Future Housing: No Difficulty Paying Gas/Electric Bills: No Difficulty Paying for Meds: No Currently Unemployed: No Education: High School Diploma/GED Difficulty w/ Childcare or Family Care: No Living arrangements: with family Additional living arrangements comments: lives with parents Occupation/Education: occupation 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 Gender identity (if verbalized by the patient): Female Sexual Orientation (if Verbalized by the Patient): Straight or Heterosexual Spiritual care concerns: No Exam Const: General: healthy appearing, no acute distress and alert; No ill appearing Nutritional Appearance: well nourished Orientation/consciousness: patient oriented x3 Limitations: no limitations HENMT: Head: normal to inspection Mouth: Yes Normal oral and palatal mucosa present and Yes moist mucous membranes Eyes: Conjunctivae: conjunctivae normal Neck: Neck: normal visual inspection, no lymphadenopathy and no meningeal signs Chest: Chest palpation & inspection: normal inspection of the chest Other: Nontender to palpation without any crepitus. Resp: Effort & Inspection: normal respiratory effort Auscultation: clear to auscultation bilaterally Cardio: Rate: regular rate Rhythm: regular rhythm Heart sounds: no murmurs GI: GI Palp: Yes Soft to palpation, Yes Tenderness to palpation present (GI) (Suprapubic, periumbilical), No Guarding due to palpation present (GI), No Rigid due to palpation, No Hernia present and No Palpable mass present Auscultation: normal bowel sounds Back/Spine/Pelvis: Back: no CVA tenderness Other: Full range of motion Skin: General skin exam: normal color Rashes: no rashes Wounds: no wounds Neuro: General: patient oriented x3, moves all extremities, no meningeal signs and no focal motor deficits Speech: normal speech Gait exam (Neuro): Normal gait present Other: Grossly intact Extrem: General: normal to inspection, no clubbing, cyanosis or edema and no pedal edema Other: Fully and equally moves all extremities well without deficit. Psych: Mental Status: mental status grossly normal Affect: normal affect Course Course Emergency Course: My differential diagnosis includes but is not limited to: Threatened miscarriage, urinary tract infection, pancreatitis, acute abdomen, dehydration Patient's vital signs are reviewed under normal Labs and ultrasound obtained. Patient given L of IV fluids for hydration and also given Zofran for nausea. UA shows UTI. Pt started on Macrobid here. US showing a viable and dates at 7 weeks and 4 days. Pt without any acute s/s of miscarriage. She is discharged to home with prescription for Macrobid to continue. Advised increase water intake and establish with OB mary beth. Vital Signs Vital signs: Vital Signs Temperature 97.6 F 03/10/25 12:25 Pulse Rate 95 03/10/25 12:25 Respiratory Rate 18 03/10/25 12:25 Blood Pressure 113/88 03/10/25 12:25 Pulse Oximetry 99 03/10/25 12:25 Oxygen Delivery Room Air 03/10/25 12:25 Temperature 97.6 F 03/10/25 12:25 Pulse Rate 95 03/10/25 12:25 Respiratory Rate 18 03/10/25 12:25 Blood Pressure 113/88 03/10/25 12:25 Pulse Oximetry 99 03/10/25 12:25 Oxygen Delivery Room Air 03/10/25 12:25 MDM - Abdominal Pain MDM Narrative Medical decision making narrative: See ED Course Lab Data 03/10/25 12:33 03/10/25 12:33 Labs: Lab Results 03/10/25 03/10/25 03/10/25 Range/Units 12:33 12:48 12:49 WBC 10.1 H (4.5-10.0) K/mm3 RBC 4.63 (4.2-5.4) M/mm3 Hgb 13.6 (12.0-15.0) g/dL Hct 40.2 (37.0-47.0) % MCV 86.8 (80-100) fl MCH 29.4 (26-34) pg MCHC 33.8 (32-36) g/dl RDW 12.7 (11.5-14.5) % Plt Count 293 (150-375) k/mm3 MPV 9.5 (7.4-10.4) fl Immature Gran % (Auto) 0.7 H (0-0.5) % Neut % (Auto) 59.1 (45.5-73.1) % Lymph % (Auto) 30.7 (18.3-44.2) % [place] % (Auto) 8.3 (2.6-8.5) % Eos % (Auto) 1.0 (0-4.4) % Baso % (Auto) 0.2 (0.2-1.2) % Lymph # (Auto) 3.10 (0.9-3.2) K/mm3 [place] # (Auto) 0.8 H (0.1-0.6) K/mm3 Eos # (Auto) 0.1 (0-0.3) K/mm3 Baso # (Auto) 0.0 (0.0-0.1) K/mm3 Abs Immat Gran (auto) 0.07 H (0.00-0.031) K/mm3 Absolute Neuts (auto) 6.0 (1.3-6.7) K/mm3 Absolute Nucleated RBC 0.000 (0.0-0.012) K/mm3 Nucleated RBC % 0.0 (0.0-0.2) % Sodium 134 L (137-145) mmol/L Potassium 4.0 (3.4-5.0) mmol/L Chloride 105 (98-107) mmol/L Carbon Dioxide 23 (22-30) mmol/L Anion Gap 6 (4-12) mmol/L BUN 6 L (7-17) mg/dL Creatinine 0.57 L (0.7-1.0) mg/dL Estim Creat Clear Calc 134 ml/min Estimated GFR > 60 (59 - ) Glucose 90 (65-110) mg/dL Calcium 8.6 (8.4-10.2) mg/dL Magnesium 1.9 (1.6-2.3) mg/dL Total Bilirubin 0.5 (0.2-1.3) mg/dL AST 27 (14-36) U/L ALT 13 (6-35) U/L Alkaline Phosphatase 88 (38-126) U/L Total Protein 6.7 (6.3-8.2) g/dL Albumin 3.9 (3.5-5.1) g/dL Lipase 76 (23-300) U/L Beta HCG, Quant 355741.00 mIU/ML Urine Color Yellow (Yellow) Urine Appearance Clear (Clear) Urine pH 7.0 (5.0-9.0) Ur Specific [place] 1.022 (1.001-1.035) Urine Protein Negative (Negative) mg/dL Urine Glucose (UA) Negative (Negative) mg/dL Urine Ketones Trace H (Negative) mg/dL Ur Blood (Man) Negative (Negative) Urine Nitrate Negative (Negative) Urine Bilirubin Negative (Negative) Urine Urobilinogen 1.0 (<2.0) mg/dL Leukocyte Esterase Rfl 2+ H (Negative) MANDI/UL Urine RBC 0-2 (0-2) /hpf Urine WBC 21-50 H (0-3) /hpf Ur Squamous Epith Cells Few (Few) /hpf Urine Bacteria 1+ H /hpf Urine Casts 0-2 POC Urine HCG, Qual Positive (Negative) Imaging Data Radiologist's impression: ITS Impressions Obstetrics Ultrasound 03/10/25 14:07 IMPRESSION: 1. Single living fetus with heart rate of 153 bpm. 2. Gestational age by ultrasound of 7 weeks 4 day(s) +/- 4 day(s) with ultrasound estimated date of delivery (KATHIE) of 10/23/2025. 3. Small subchorionic hematoma. Discharge Plan Discharge Clinical Impression: UTI (urinary tract infection) Patient Disposition: Home Condition: Stable Instructions: Antibiotic Form Additional Instructions: Your workup shows that you have a UTI. Please take all antibiotics as ordered and take it to completion. Increase water intake and follow up with an OB MARY BETH. If any worsening of symptoms, return to to the ER. Patient Language: Hungarian Prescriptions: New nitrofurantoin monohyd/m-cryst [Macrobid] 100 mg capsule 100 mg PO Q12H 7 Days Qty: 14 0RF Rx Instructions: must administer with a meal/food No Action PNV no.95-ferrous fumarate-FA [] 28 mg iron- 800 mcg tablet 1 tablet PO BID drospirenone-ethinyl estradiol [JAJA (28)] 3-0.02 mg tablet 1 tablet PO DAILY Qty: 84 0RF Follow-up/Referrals: UNKNOWN,DOCTOR [Primary Care Provider] Time of Disposition: 14:21
[2025-03-10 12:51] LABS: BEDSIDEPREGUCG Positive (Negative)
[2025-03-10] MEDS: ONDANSETRON INJ 4 MG/2 ML VIAL IV PUSH (12:57)
[2025-03-10] MEDS: SODIUM CHLORIDE 0.9% IV 500 ML 999 ML IV CONT (12:58)
[2025-03-10 13:05] LABS: Alanine Aminotransferase 13 U/L (6-35); Albumin Level 3.9 g/dL (3.5-5.1); Alkaline Phosphatase 88 U/L (38-126); Anion Gap 6 mmol/L (4-12); Aspartate Amino Transferase 27 U/L (14-36); Bilirubin,Total 0.5 mg/dL (0.2-1.3); Blood Urea Nitrogen 6 mg/dL (7-17); Calcium 8.6 mg/dL (8.4-10.2); Carbon Dioxide 23 mmol/L (22-30); Chloride 105 mmol/L (98-107); Estimated CRCL calculation 134 ml/min; Estimated Glomerular Filt Rate > 60; Glucose 90 mg/dL (65-110); Magnesium 1.9 mg/dL (1.6-2.3); Potassium 4.0 mmol/L (3.4-5.0); Sodium 134 mmol/L (137-145); Total Protein 6.7 g/dL (6.3-8.2)
[2025-03-10 13:06] LABS: Add Urine Microscopic? YES; Appearance Urine Clear (Clear); Glucose Urine UA Negative (Negative); Leukocyte Esterase Ur 2+ LEU/UL (Negative); Nitrate Urine Negative (Negative); Non Pathogenic Casts 0-2; Specific Grav Ur 1.022 (1.001-1.035)
[2025-03-10 13:33] LABS: Lipase 76 U/L (23-300)
[2025-03-10 13:50] LABS: Beta HCG Quantitative 163600.00 mIU/ML
[2025-03-10 14:41] VITALS: BP 122/88; PULSE 86; RESP 14; O2SAT 98
== END 2025-03-10 14:41 | disposition home or self-care (01) ==
PROVIDERS: Emergency Provider Nurse Practitioner Adult Health
DX: O23.41 Unspecified infection of urinary tract in pregnancy, first trimester (principal); N39.0 Urinary tract infection, site not specified; Z3A.01 Less than 8 weeks gestation of pregnancy; Z77.22 Contact with and (suspected) exposure to environmental tobacco smoke (acute) (chronic)
CPT/HCPCS: 36415; 76801; 76817; 80053; 81001; 81025; 83690; 83735; 84702; 85025; 87086; 96361; 96374; 99284; J2405; J7040

== ENCOUNTER 2025-03-12 15:01 | Emergency (ER) | payer OTHER, MEDICAID, SELFPAY ==
--- OUTSIDE RECORDS SUMMARY | 2009-12-02 04:00 | XMS_ITS | Continuity of Care Document ---
Author Organization [facility] Address [address] [place] [address] [address] [place] [address] Phone Care Team Providers Care Retail Loan Originator Name Role Phone Mobley OD, Gianni Unavailable Unavailable Procedures Procedure Date Eye Exam, New Patient Refraction Advance Directives Directive Yes / No Effective Date File Name No Information Encounters Encounter Description Practice Location Reason(s) For Visit Diagnoses Date Provider Providers Copied on Encounter [facility], [address], [place], [place], [address], [place] tel:[phone] [facility] [place] No Information 1-201 0 Mobley OD Gianni. [address] [facility] [place] , [address], [place], [address], [place]. tel:[phone] Family History Family Member Type Diagnosis Age At Onset No Information Payers Payer name Insurance type Covered democrat ID Authoriza tion(s) Medicaid [facility] [id number] Social History Type Description Quantity Date Captured [...]
--- OUTSIDE RECORDS SUMMARY | 2009-12-02 04:00 | XMS_ITS | Continuity of Care Document ---
Author Organization [facility] Address [address] [place] [address] [address] [place] [address] Phone Care Team Providers Care Grease Maker Name Role Phone Mobley OD, Gianni Unavailable Unavailable Procedures Procedure Date Eye Exam, New Patient Refraction Advance Directives Directive Yes / No Effective Date File Name No Information Encounters Encounter Description Practice Location Reason(s) For Visit Diagnoses Date Provider Providers Copied on Encounter [facility], [address], [place], [place], [address], [place] tel:[phone] [facility] [place] No Information 1-201 0 Mobley OD Gianni. [address] [facility] [place] , [address], [place], [address], [place]. tel:[phone] Family History Family Member Type Diagnosis Age At Onset No Information Payers Payer name Insurance type Covered republican ID Authoriza tion(s) Medicaid [facility] [id number] Social History Type Description Quantity Date Captured [...]
[2025-03-12 15:03] VITALS: BP 130/90; PULSE 111; RESP 16; TEMP 36.9; O2SAT 100
--- NOTE | 2025-03-12 16:41 | ED_ITS ---
HPI - Female Genitourinary General Chief complaint: Urogenital-Female <Omar Stiles APRN - Last Filed: 03/12/25 16:47> Stated complaint: UTI, worse symptoms <Omar Stiles APRN - Last Filed: 03/12/25 16:47> Time Seen by Provider: 03/12/25 16:41 <Omar tSiles APRN - Last Filed: 03/12/25 16:47> Focused HPI: Kate is a 19-year-old female patient presenting to ER today with complaints of possible worsening of urinary tract infection. Patient is 8 weeks . States she developed some back pain on Monday and was seen in the ER. Reports worsening of back pain. She was initially given Macrobid. She denies any vaginal discharge or bleeding. Denies any abdominal pain. Has had some nausea and vomiting this morning. Temperature as high as 99? F. Has been taking Tylenol for fever/pain. Had ultrasound done on Monday showing 1. Single living fetus with heart rate of 153 bpm.2. Gestational age by ultrasound of 7 weeks 4 day(s) +/- 4 day(s) with ultrasound estimated date of delivery (KATHIE) of 10/23/2025. 3. Small subchorionic hematoma with hCG levels- [id number] GENERAL: Well-appearing, well-nourished, and in no acute distress. HEAD: Normocephalic, atraumatic. CHEST: Clear to auscultation. No respiratory distress. HEART: Regular rate and rhythm. NEURO: Alert and oriented x3. Patient screened in triage and initial orders placed. Additional care and disposition to be based upon diagnostic testing and treatment. <Omar Stiles APRN - Last Filed: 03/12/25 16:47> Source: patient <Omar Stiles APRN - Last Filed: 03/12/25 16:47> Mode of arrival: ambulatory <Omar Stiles APRN - Last Filed: 03/12/25 16:47> Limitations: no limitations <Omar Stiles APRN - Last Filed: 03/12/25 16:47> History of Present Illness HPI Narrative: I agree with the above HPI <Jace Barragan MD - Last Filed: 03/12/25 21:44> Related Data Home medications: Home Medications ?Medication ?Instructions ?Recorded ?Confirmed ?Last Taken ?Type vit no.95-ferrous 1 tablet PO BID 06/18/2408/27/24 08:00 History fumarate 28 mg-folic acid 800 mcg tablet () <Omar Stiles APRN - Last Filed: 03/12/25 16:47> Allergies/Adverse reactions: Allergies Allergy/AdvReac Type Severity Reaction Status Date / Time levonorgestrel (From Plan B) Allergy Mild Itching Verified 03/12/25 15:04 <Omar Stiles APRN - Last Filed: 03/12/25 16:47> Review of Systems 2 Review of Systems: All systems reviewed & are unremarkable except as noted in HPI and below <Jace Barragan MD - Last Filed: 03/12/25 21:44> [facility] Past Medical History Medical History: Medical History HSV-2 infection HSV-1 infection UTI (urinary tract infection) Irregular periods Skin lesion Pancreatitis <Omar Stiles APRN - Last Filed: 03/12/25 16:47> Family History Family History: Family History Grandparent Cancer of kidney paternal grandmother <Omar Stiles APRN - Last Filed: 03/12/25 16:47> Social History Social History: Social History Smoking status: Never smoker Second hand tobacco smoke exposure: Yes Alcohol intake: never Substance use: never Substance use type: does not use Do You Feel Safe in your Home?: Yes Lack of Transportation: No Lack of Food: Never True Current Housing: I Have Housing Concerned About Future Housing: No Difficulty Paying Gas/Electric Bills: No Difficulty Paying for Meds: No Currently Unemployed: No Education: High School Diploma/GED Difficulty w/ Childcare or Family Care: No Living arrangements: with family Additional living arrangements comments: lives with parents Occupation/Education: occupation 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 HEAD: normocephalic, atraumatic. EYES: PERRLA/EOMI, conjunctivae clear. NOSE: Normal no drainage EARS:TMS clear with good light reflex. THROAT: Pharynx clear, no exudate. NECK: Supple. No adenopathy, no masses. RESPIRATORY: Airway patent, respirations nonlabored. Clear to auscultation bilaterally, no rales, rhonchi, wheezing. CARDIOVASCULAR: Regular rate and rhythm without murmurs rubs or gallops. ABDOMINAL: Soft, nontender, nondistended, normal bowel sounds MUSCULOSKELETAL: Moves all extremities. Strength/ROM intact, No edema, No calf tenderness. NEURO: Alert. Cranial nerves II through XII intact. Good gait. Good coordination SKIN: Warm, dry. Normal Color <Jace Barragan MD - Last Filed: 03/12/25 21:44> Course Vital Signs Vital signs: Vital Signs Temperature 98.5 F 03/12/25 15:03 Pulse Rate 111 H 03/12/25 15:03 Respiratory Rate 16 03/12/25 15:03 Blood Pressure 130/90 03/12/25 15:03 Pulse Oximetry 100 03/12/25 15:03 Oxygen Delivery Room Air 03/12/25 15:03 Temperature 98.2 F 03/12/25 18:47 Pulse Rate 99 03/12/25 18:47 Respiratory Rate 14 03/12/25 18:47 Blood Pressure 116/66 03/12/25 18:47 Pulse Oximetry 100 03/12/25 18:47 Oxygen Delivery Room Air 03/12/25 15:03 <Omar Stiles APRN - Last Filed: 03/12/25 16:47> Vital Signs Temperature 98.5 F 03/12/25 15:03 Pulse Rate 111 H 03/12/25 15:03 Respiratory Rate 16 03/12/25 15:03 Blood Pressure 130/90 03/12/25 15:03 Pulse Oximetry 100 03/12/25 15:03 Oxygen Delivery Room Air 03/12/25 15:03 Temperature 98.2 F 03/12/25 18:47 Pulse Rate 99 03/12/25 18:47 Respiratory Rate 14 03/12/25 18:47 Blood Pressure 116/66 03/12/25 18:47 Pulse Oximetry 100 03/12/25 18:47 Oxygen Delivery Room Air 03/12/25 15:03 <Jace Barragan MD - Last Filed: 03/12/25 21:44> MDM - Female Genitourinary MDM Narrative Medical decision making narrative: 19-year-old female presents emergency department for evaluation for nausea vomiting and persistent urinary symptoms. Patient was evaluated emergency department on Monday did have ultrasound and was started on Macrobid. Patient did have follow-up with her OB Gyne today. After getting home patient began having worsening nausea and vomiting and did have an episode of diarrhea. Patient had been given conflicting advice on taking her Zofran so she did not take it when she had onset of nausea today. Time of evaluation patient is well- appearing with no tachycardia and she is afebrile. Patient denies any vaginal bleeding or abdominal pain. Patient was treated with L of lactated Ringer's and patient was switched from Macrobid to Rocephin and she was treated with 1 g of IV Rocephin in the ED. On re-evaluation patient does feel improved. Patient was educated on reasons to return to the emergency department the <Jace Barragan MD - Last Filed: 03/12/25 21:44> Differential Diagnosis Differential diagnosis: Likely urinary tract infection <Jace Barragan MD - Last Filed: 03/12/25 21:44> Lab Data Attestation: I reviewed the patient's lab results. <Jace Barragan MD - Last Filed: 03/12/25 21:44> Result diagrams: 03/12/25 16:47 03/12/25 16:47 <Omar Stiles APRN - Last Filed: 03/12/25 16:47> Labs: Lab Results 03/12/25 03/12/25 03/12/25 Range/Units 16:47 16:47 16:47 WBC 17.3 H (4.5-10.0) K/mm3 RBC 4.47 (4.2-5.4) M/mm3 Hgb 13.3 (12.0-15.0) g/dL Hct 38.7 (37.0-47.0) % MCV 86.6 (80-100) fl MCH 29.8 (26-34) pg MCHC 34.4 (32-36) g/dl RDW 12.7 (11.5-14.5) % Plt Count 297 (150-375) k/mm3 MPV 9.4 (7.4-10.4) fl Immature Gran % (Auto) 0.4 (0-0.5) % Neut % (Auto) 77.6 H (45.5-73.1) % Lymph % (Auto) 14.0 L (18.3-44.2) % Kings % (Auto) 7.5 (2.6-8.5) % Eos % (Auto) 0.4 (0-4.4) % Baso % (Auto) 0.1 L (0.2-1.2) % Lymph # (Auto) 2.42 (0.9-3.2) K/mm3 Kings # (Auto) 1.3 H (0.1-0.6) K/mm3 Eos # (Auto) 0.1 (0-0.3) K/mm3 Baso # (Auto) 0.0 (0.0-0.1) K/mm3 Abs Immat Gran (auto) 0.07 H (0.00-0.031) K/mm3 Absolute Neuts (auto) 13.4 H (1.3-6.7) K/mm3 Absolute Nucleated RBC 0.000 (0.0-0.012) K/mm3 Nucleated RBC % 0.0 (0.0-0.2) % Sodium Cancelled 135 L Potassium Cancelled 4.0 Chloride Cancelled Carbon Dioxide Anion Gap BUN Creatinine Estim Creat Clear Calc Estimated GFR Glucose Calcium Total Bilirubin AST ALT Alkaline Phosphatase Total Protein Albumin Lipase Beta HCG, Quant mIU/ML Urine Color (Yellow) Urine Appearance (Clear) Urine pH (5.0-9.0) Ur Specific [place] (1.001-1.035) Urine Protein (Negative) mg/dL Urine Glucose (UA) (Negative) mg/dL Urine Ketones (Negative) mg/dL Ur Blood (Man) (Negative) Urine Nitrate (Negative) Urine Bilirubin (Negative) Urine Urobilinogen (<2.0) mg/dL Leukocyte Esterase Rfl (Negative) MANDI/UL Urine RBC (0-2) /hpf Urine WBC (0-3) /hpf Ur Squamous Epith Cells (Few) /hpf Urine Bacteria /hpf Urine Casts 03/12/25 03/12/25 03/12/25 Range/Units 16:47 16:47 16:47 WBC (4.5-10.0) K/mm3 RBC (4.2-5.4) M/mm3 Hgb (12.0-15.0) g/dL Hct (37.0-47.0) % MCV (80-100) fl MCH (26-34) pg MCHC (32-36) g/dl RDW (11.5-14.5) % Plt Count (150-375) k/mm3 MPV (7.4-10.4) fl Immature Gran % (Auto) (0-0.5) % Neut % (Auto) (45.5-73.1) % Lymph % (Auto) (18.3-44.2) % Kings % (Auto) (2.6-8.5) % Eos % (Auto) (0-4.4) % Baso % (Auto) (0.2-1.2) % Lymph # (Auto) (0.9-3.2) K/mm3 Kings # (Auto) (0.1-0.6) K/mm3 Eos # (Auto) (0-0.3) K/mm3 Baso # (Auto) (0.0-0.1) K/mm3 Abs Immat Gran (auto) (0.00-0.031) K/mm3 Absolute Neuts (auto) (1.3-6.7) K/mm3 Absolute Nucleated RBC (0.0-0.012) K/mm3 Nucleated RBC % (0.0-0.2) % Sodium Potassium Chloride 104 Carbon Dioxide Cancelled 22 Anion Gap Cancelled 9 BUN Cancelled Creatinine Estim Creat Clear Calc Estimated GFR Glucose Calcium Total Bilirubin AST ALT Alkaline Phosphatase Total Protein Albumin Lipase Beta HCG, Quant mIU/ML Urine Color (Yellow) Urine Appearance (Clear) Urine pH (5.0-9.0) Ur Specific [place] (1.001-1.035) Urine Protein (Negative) mg/dL Urine Glucose (UA) (Negative) mg/dL Urine Ketones (Negative) mg/dL Ur Blood (Man) (Negative) Urine Nitrate (Negative) Urine Bilirubin (Negative) Urine Urobilinogen (<2.0) mg/dL Leukocyte Esterase Rfl (Negative) MANDI/UL Urine RBC (0-2) /hpf Urine WBC (0-3) /hpf Ur Squamous Epith Cells (Few) /hpf Urine Bacteria /hpf Urine Casts 03/12/25 03/12/25 03/12/25 Range/Units 16:47 16:47 16:47 WBC (4.5-10.0) K/mm3 RBC (4.2-5.4) M/mm3 Hgb (12.0-15.0) g/dL Hct (37.0-47.0) % MCV (80-100) fl MCH (26-34) pg MCHC (32-36) g/dl RDW (11.5-14.5) % Plt Count (150-375) k/mm3 MPV (7.4-10.4) fl Immature Gran % (Auto) (0-0.5) % Neut % (Auto) (45.5-73.1) % Lymph % (Auto) (18.3-44.2) % Kings % (Auto) (2.6-8.5) % Eos % (Auto) (0-4.4) % Baso % (Auto) (0.2-1.2) % Lymph # (Auto) (0.9-3.2) K/mm3 Kings # (Auto) (0.1-0.6) K/mm3 Eos # (Auto) (0-0.3) K/mm3 Baso # (Auto) (0.0-0.1) K/mm3 Abs Immat Gran (auto) (0.00-0.031) K/mm3 Absolute Neuts (auto) (1.3-6.7) K/mm3 Absolute Nucleated RBC (0.0-0.012) K/mm3 Nucleated RBC % (0.0-0.2) % Sodium Potassium Chloride Carbon Dioxide Anion Gap BUN 8 Creatinine Cancelled 0.56 L Estim Creat Clear Calc Cancelled 136 Estimated GFR Cancelled Glucose Calcium Total Bilirubin AST ALT Alkaline Phosphatase Total Protein Albumin Lipase Beta HCG, Quant mIU/ML Urine Color (Yellow) Urine Appearance (Clear) Urine pH (5.0-9.0) Ur Specific [place] (1.001-1.035) Urine Protein (Negative) mg/dL Urine Glucose (UA) (Negative) mg/dL Urine Ketones (Negative) mg/dL Ur Blood (Man) (Negative) Urine Nitrate (Negative) Urine Bilirubin (Negative) Urine Urobilinogen (<2.0) mg/dL Leukocyte Esterase Rfl (Negative) MANDI/UL Urine RBC (0-2) /hpf Urine WBC (0-3) /hpf Ur Squamous Epith Cells (Few) /hpf Urine Bacteria /hpf Urine Casts 03/12/25 03/12/25 03/12/25 Range/Units 16:47 16:47 16:47 WBC (4.5-10.0) K/mm3 RBC (4.2-5.4) M/mm3 Hgb (12.0-15.0) g/dL Hct (37.0-47.0) % MCV (80-100) fl MCH (26-34) pg MCHC (32-36) g/dl RDW (11.5-14.5) % Plt Count (150-375) k/mm3 MPV (7.4-10.4) fl Immature Gran % (Auto) (0-0.5) % Neut % (Auto) (45.5-73.1) % Lymph % (Auto) (18.3-44.2) % Kings % (Auto) (2.6-8.5) % Eos % (Auto) (0-4.4) % Baso % (Auto) (0.2-1.2) % Lymph # (Auto) (0.9-3.2) K/mm3 Kings # (Auto) (0.1-0.6) K/mm3 Eos # (Auto) (0-0.3) K/mm3 Baso # (Auto) (0.0-0.1) K/mm3 Abs Immat Gran (auto) (0.00-0.031) K/mm3 Absolute Neuts (auto) (1.3-6.7) K/mm3 Absolute Nucleated RBC (0.0-0.012) K/mm3 Nucleated RBC % (0.0-0.2) % Sodium Potassium Chloride Carbon Dioxide Anion Gap BUN Creatinine Estim Creat Clear Calc Estimated GFR > 60 Glucose Cancelled 93 Calcium Cancelled 8.8 Total Bilirubin Cancelled AST ALT Alkaline Phosphatase Total Protein Albumin Lipase Beta HCG, Quant mIU/ML Urine Color (Yellow) Urine Appearance (Clear) Urine pH (5.0-9.0) Ur Specific [place] (1.001-1.035) Urine Protein (Negative) mg/dL Urine Glucose (UA) (Negative) mg/dL Urine Ketones (Negative) mg/dL Ur Blood (Man) (Negative) Urine Nitrate (Negative) Urine Bilirubin (Negative) Urine Urobilinogen (<2.0) mg/dL Leukocyte Esterase Rfl (Negative) MANDI/UL Urine RBC (0-2) /hpf Urine WBC (0-3) /hpf Ur Squamous Epith Cells (Few) /hpf Urine Bacteria /hpf Urine Casts 03/12/25 03/12/25 03/12/25 Range/Units 16:47 16:47 16:47 WBC (4.5-10.0) K/mm3 RBC (4.2-5.4) M/mm3 Hgb (12.0-15.0) g/dL Hct (37.0-47.0) % MCV (80-100) fl MCH (26-34) pg MCHC (32-36) g/dl RDW (11.5-14.5) % Plt Count (150-375) k/mm3 MPV (7.4-10.4) fl Immature Gran % (Auto) (0-0.5) % Neut % (Auto) (45.5-73.1) % Lymph % (Auto) (18.3-44.2) % Kings % (Auto) (2.6-8.5) % Eos % (Auto) (0-4.4) % Baso % (Auto) (0.2-1.2) % Lymph # (Auto) (0.9-3.2) K/mm3 Kings # (Auto) (0.1-0.6) K/mm3 Eos # (Auto) (0-0.3) K/mm3 Baso # (Auto) (0.0-0.1) K/mm3 Abs Immat Gran (auto) (0.00-0.031) K/mm3 Absolute Neuts (auto) (1.3-6.7) K/mm3 Absolute Nucleated RBC (0.0-0.012) K/mm3 Nucleated RBC % (0.0-0.2) % Sodium Potassium Chloride Carbon Dioxide Anion Gap BUN Creatinine Estim Creat Clear Calc Estimated GFR Glucose Calcium Total Bilirubin 0.4 AST Cancelled 28 ALT Cancelled 12 Alkaline Phosphatase Cancelled Total Protein Albumin Lipase Beta HCG, Quant mIU/ML Urine Color (Yellow) Urine Appearance (Clear) Urine pH (5.0-9.0) Ur Specific [place] (1.001-1.035) Urine Protein (Negative) mg/dL Urine Glucose (UA) (Negative) mg/dL Urine Ketones (Negative) mg/dL Ur Blood (Man) (Negative) Urine Nitrate (Negative) Urine Bilirubin (Negative) Urine Urobilinogen (<2.0) mg/dL Leukocyte Esterase Rfl (Negative) MANDI/UL Urine RBC (0-2) /hpf Urine WBC (0-3) /hpf Ur Squamous Epith Cells (Few) /hpf Urine Bacteria /hpf Urine Casts 03/12/25 03/12/25 03/12/25 Range/Units 16:47 16:47 16:47 WBC (4.5-10.0) K/mm3 RBC (4.2-5.4) M/mm3 Hgb (12.0-15.0) g/dL Hct (37.0-47.0) % MCV (80-100) fl MCH (26-34) pg MCHC (32-36) g/dl RDW (11.5-14.5) % Plt Count (150-375) k/mm3 MPV (7.4-10.4) fl Immature Gran % (Auto) (0-0.5) % Neut % (Auto) (45.5-73.1) % Lymph % (Auto) (18.3-44.2) % Kings % (Auto) (2.6-8.5) % Eos % (Auto) (0-4.4) % Baso % (Auto) (0.2-1.2) % Lymph # (Auto) (0.9-3.2) K/mm3 Kings # (Auto) (0.1-0.6) K/mm3 Eos # (Auto) (0-0.3) K/mm3 Baso # (Auto) (0.0-0.1) K/mm3 Abs Immat Gran (auto) (0.00-0.031) K/mm3 Absolute Neuts (auto) (1.3-6.7) K/mm3 Absolute Nucleated RBC (0.0-0.012) K/mm3 Nucleated RBC % (0.0-0.2) % Sodium Potassium Chloride Carbon Dioxide Anion Gap BUN Creatinine Estim Creat Clear Calc Estimated GFR Glucose Calcium Total Bilirubin AST ALT Alkaline Phosphatase 88 Total Protein Cancelled 7.0 Albumin Cancelled 4.0 Lipase Cancelled Beta HCG, Quant mIU/ML Urine Color (Yellow) Urine Appearance (Clear) Urine pH (5.0-9.0) Ur Specific [place] (1.001-1.035) Urine Protein (Negative) mg/dL Urine Glucose (UA) (Negative) mg/dL Urine Ketones (Negative) mg/dL Ur Blood (Man) (Negative) Urine Nitrate (Negative) Urine Bilirubin (Negative) Urine Urobilinogen (<2.0) mg/dL Leukocyte Esterase Rfl (Negative) MNADI/UL Urine RBC (0-2) /hpf Urine WBC (0-3) /hpf Ur Squamous Epith Cells (Few) /hpf Urine Bacteria /hpf Urine Casts 03/12/25 Range/Units 16:47 WBC (4.5-10.0) K/mm3 RBC (4.2-5.4) M/mm3 Hgb (12.0-15.0) g/dL Hct (37.0-47.0) % MCV (80-100) fl MCH (26-34) pg MCHC (32-36) g/dl RDW (11.5-14.5) % Plt Count (150-375) k/mm3 MPV (7.4-10.4) fl Immature Gran % (Auto) (0-0.5) % Neut % (Auto) (45.5-73.1) % Lymph % (Auto) (18.3-44.2) % Kings % (Auto) (2.6-8.5) % Eos % (Auto) (0-4.4) % Baso % (Auto) (0.2-1.2) % Lymph # (Auto) (0.9-3.2) K/mm3 Kings # (Auto) (0.1-0.6) K/mm3 Eos # (Auto) (0-0.3) K/mm3 Baso # (Auto) (0.0-0.1) K/mm3 Abs Immat Gran (auto) (0.00-0.031) K/mm3 Absolute Neuts (auto) (1.3-6.7) K/mm3 Absolute Nucleated RBC (0.0-0.012) K/mm3 Nucleated RBC % (0.0-0.2) % Sodium Potassium Chloride Carbon Dioxide Anion Gap BUN Creatinine Estim Creat Clear Calc Estimated GFR Glucose Calcium Total Bilirubin AST ALT Alkaline Phosphatase Total Protein Albumin Lipase 83 Beta HCG, Quant 963161.00 mIU/ML Urine Color Yellow (Yellow) Urine Appearance Clear (Clear) Urine pH 8.0 (5.0-9.0) Ur Specific [place] 1.012 (1.001-1.035) Urine Protein Negative (Negative) mg/dL Urine Glucose (UA) Negative (Negative) mg/dL Urine Ketones Negative (Negative) mg/dL Ur Blood (Man) Negative (Negative) Urine Nitrate Negative (Negative) Urine Bilirubin Negative (Negative) Urine Urobilinogen 1.0 (<2.0) mg/dL Leukocyte Esterase Rfl 2+ H (Negative) MANDI/UL Urine RBC 0-2 (0-2) /hpf Urine WBC 11-20 H (0-3) /hpf Ur Squamous Epith Cells Few (Few) /hpf Urine Bacteria Rare /hpf Urine Casts 0-2 <Omar Stiles, [employer] - Last Filed: 03/12/25 16:47> Lab Results 03/12/25 03/12/25 03/12/25 Range/Units 16:47 16:47 16:47 WBC 17.3 H (4.5-10.0) K/mm3 RBC 4.47 (4.2-5.4) M/mm3 Hgb 13.3 (12.0-15.0) g/dL Hct 38.7 (37.0-47.0) % MCV 86.6 (80-100) fl MCH 29.8 (26-34) pg MCHC 34.4 (32-36) g/dl RDW 12.7 (11.5-14.5) % Plt Count 297 (150-375) k/mm3 MPV 9.4 (7.4-10.4) fl Immature Gran % (Auto) 0.4 (0-0.5) % Neut % (Auto) 77.6 H (45.5-73.1) % Lymph % (Auto) 14.0 L (18.3-44.2) % Kings % (Auto) 7.5 (2.6-8.5) % Eos % (Auto) 0.4 (0-4.4) % Baso % (Auto) 0.1 L (0.2-1.2) % Lymph # (Auto) 2.42 (0.9-3.2) K/mm3 Kings # (Auto) 1.3 H (0.1-0.6) K/mm3 Eos # (Auto) 0.1 (0-0.3) K/mm3 Baso # (Auto) 0.0 (0.0-0.1) K/mm3 Abs Immat Gran (auto) 0.07 H (0.00-0.031) K/mm3 Absolute Neuts (auto) 13.4 H (1.3-6.7) K/mm3 Absolute Nucleated RBC 0.000 (0.0-0.012) K/mm3 Nucleated RBC % 0.0 (0.0-0.2) % Sodium Cancelled 135 L Potassium Cancelled 4.0 Chloride Cancelled Carbon Dioxide Anion Gap BUN Creatinine Estim Creat Clear Calc Estimated GFR Glucose Calcium Total Bilirubin AST ALT Alkaline Phosphatase Total Protein Albumin Lipase Beta HCG, Quant mIU/ML Urine Color (Yellow) Urine Appearance (Clear) Urine pH (5.0-9.0) Ur Specific [place] (1.001-1.035) Urine Protein (Negative) mg/dL Urine Glucose (UA) (Negative) mg/dL Urine Ketones (Negative) mg/dL Ur Blood (Man) (Negative) Urine Nitrate (Negative) Urine Bilirubin (Negative) Urine Urobilinogen (<2.0) mg/dL Leukocyte Esterase Rfl (Negative) MANDI/UL Urine RBC (0-2) /hpf Urine WBC (0-3) /hpf Ur Squamous Epith Cells (Few) /hpf Urine Bacteria /hpf Urine Casts 03/12/25 03/12/25 03/12/25 Range/Units 16:47 16:47 16:47 WBC (4.5-10.0) K/mm3 RBC (4.2-5.4) M/mm3 Hgb (12.0-15.0) g/dL Hct (37.0-47.0) % MCV (80-100) fl MCH (26-34) pg MCHC (32-36) g/dl RDW (11.5-14.5) % Plt Count (150-375) k/mm3 MPV (7.4-10.4) fl Immature Gran % (Auto) (0-0.5) % Neut % (Auto) (45.5-73.1) % Lymph % (Auto) (18.3-44.2) % Kings % (Auto) (2.6-8.5) % Eos % (Auto) (0-4.4) % Baso % (Auto) (0.2-1.2) % Lymph # (Auto) (0.9-3.2) K/mm3 [place] # (Auto) (0.1-0.6) K/mm3 Eos # (Auto) (0-0.3) K/mm3 Baso # (Auto) (0.0-0.1) K/mm3 Abs Immat Gran (auto) (0.00-0.031) K/mm3 Absolute Neuts (auto) (1.3-6.7) K/mm3 Absolute Nucleated RBC (0.0-0.012) K/mm3 Nucleated RBC % (0.0-0.2) % Sodium Potassium Chloride 104 Carbon Dioxide Cancelled 22 Anion Gap Cancelled 9 BUN Cancelled Creatinine Estim Creat Clear Calc Estimated GFR Glucose Calcium Total Bilirubin AST ALT Alkaline Phosphatase Total Protein Albumin Lipase Beta HCG, Quant mIU/ML Urine Color (Yellow) Urine Appearance (Clear) Urine pH (5.0-9.0) Ur Specific [place] (1.001-1.035) Urine Protein (Negative) mg/dL Urine Glucose (UA) (Negative) mg/dL Urine Ketones (Negative) mg/dL Ur Blood (Man) (Negative) Urine Nitrate (Negative) Urine Bilirubin (Negative) Urine Urobilinogen (<2.0) mg/dL Leukocyte Esterase Rfl (Negative) MANDI/UL Urine RBC (0-2) /hpf Urine WBC (0-3) /hpf Ur Squamous Epith Cells (Few) /hpf Urine Bacteria /hpf Urine Casts 10/29/25 10/29/25 10/29/25 Range/Units 16:47 16:47 16:47 WBC (4.5-10.0) K/mm3 RBC (4.2-5.4) M/mm3 Hgb (12.0-15.0) g/dL Hct (37.0-47.0) % MCV (80-100) fl MCH (26-34) pg MCHC (32-36) g/dl RDW (11.5-14.5) % Plt Count (150-375) k/mm3 MPV (7.4-10.4) fl Immature Gran % (Auto) (0-0.5) % Neut % (Auto) (45.5-73.1) % Lymph % (Auto) (18.3-44.2) % Kings % (Auto) (2.6-8.5) % Eos % (Auto) (0-4.4) % Baso % (Auto) (0.2-1.2) % Lymph # (Auto) (0.9-3.2) K/mm3 [place] # (Auto) (0.1-0.6) K/mm3 Eos # (Auto) (0-0.3) K/mm3 Baso # (Auto) (0.0-0.1) K/mm3 Abs Immat Gran (auto) (0.00-0.031) K/mm3 Absolute Neuts (auto) (1.3-6.7) K/mm3 Absolute Nucleated RBC (0.0-0.012) K/mm3 Nucleated RBC % (0.0-0.2) % Sodium Potassium Chloride Carbon Dioxide Anion Gap BUN 8 Creatinine Cancelled 0.56 L Estim Creat Clear Calc Cancelled 136 Estimated GFR Cancelled Glucose Calcium Total Bilirubin AST ALT Alkaline Phosphatase Total Protein Albumin Lipase Beta HCG, Quant mIU/ML Urine Color (Yellow) Urine Appearance (Clear) Urine pH (5.0-9.0) Ur Specific [place] (1.001-1.035) Urine Protein (Negative) mg/dL Urine Glucose (UA) (Negative) mg/dL Urine Ketones (Negative) mg/dL Ur Blood (Man) (Negative) Urine Nitrate (Negative) Urine Bilirubin (Negative) Urine Urobilinogen (<2.0) mg/dL Leukocyte Esterase Rfl (Negative) MANDI/UL Urine RBC (0-2) /hpf Urine WBC (0-3) /hpf Ur Squamous Epith Cells (Few) /hpf Urine Bacteria /hpf Urine Casts 03/12/25 03/12/25 03/12/25 Range/Units 16:47 16:47 16:47 WBC (4.5-10.0) K/mm3 RBC (4.2-5.4) M/mm3 Hgb (12.0-15.0) g/dL Hct (37.0-47.0) % MCV (80-100) fl MCH (26-34) pg MCHC (32-36) g/dl RDW (11.5-14.5) % Plt Count (150-375) k/mm3 MPV (7.4-10.4) fl Immature Gran % (Auto) (0-0.5) % Neut % (Auto) (45.5-73.1) % Lymph % (Auto) (18.3-44.2) % Kings % (Auto) (2.6-8.5) % Eos % (Auto) (0-4.4) % Baso % (Auto) (0.2-1.2) % Lymph # (Auto) (0.9-3.2) K/mm3 Kings # (Auto) (0.1-0.6) K/mm3 Eos # (Auto) (0-0.3) K/mm3 Baso # (Auto) (0.0-0.1) K/mm3 Abs Immat Gran (auto) (0.00-0.031) K/mm3 Absolute Neuts (auto) (1.3-6.7) K/mm3 Absolute Nucleated RBC (0.0-0.012) K/mm3 Nucleated RBC % (0.0-0.2) % Sodium Potassium Chloride Carbon Dioxide Anion Gap BUN Creatinine Estim Creat Clear Calc Estimated GFR > 60 Glucose Cancelled 93 Calcium Cancelled 8.8 Total Bilirubin Cancelled AST ALT Alkaline Phosphatase Total Protein Albumin Lipase Beta HCG, Quant mIU/ML Urine Color (Yellow) Urine Appearance (Clear) Urine pH (5.0-9.0) Ur Specific [place] (1.001-1.035) Urine Protein (Negative) mg/dL Urine Glucose (UA) (Negative) mg/dL Urine Ketones (Negative) mg/dL Ur Blood (Man) (Negative) Urine Nitrate (Negative) Urine Bilirubin (Negative) Urine Urobilinogen (<2.0) mg/dL Leukocyte Esterase Rfl (Negative) MANDI/UL Urine RBC (0-2) /hpf Urine WBC (0-3) /hpf Ur Squamous Epith Cells (Few) /hpf Urine Bacteria /hpf Urine Casts 03/12/25 03/12/25 03/12/25 Range/Units 16:47 16:47 16:47 WBC (4.5-10.0) K/mm3 RBC (4.2-5.4) M/mm3 Hgb (12.0-15.0) g/dL Hct (37.0-47.0) % MCV (80-100) fl MCH (26-34) pg MCHC (32-36) g/dl RDW (11.5-14.5) % Plt Count (150-375) k/mm3 MPV (7.4-10.4) fl Immature Gran % (Auto) (0-0.5) % Neut % (Auto) (45.5-73.1) % Lymph % (Auto) (18.3-44.2) % Kings % (Auto) (2.6-8.5) % Eos % (Auto) (0-4.4) % Baso % (Auto) (0.2-1.2) % Lymph # (Auto) (0.9-3.2) K/mm3 Kings # (Auto) (0.1-0.6) K/mm3 Eos # (Auto) (0-0.3) K/mm3 Baso # (Auto) (0.0-0.1) K/mm3 Abs Immat Gran (auto) (0.00-0.031) K/mm3 Absolute Neuts (auto) (1.3-6.7) K/mm3 Absolute Nucleated RBC (0.0-0.012) K/mm3 Nucleated RBC % (0.0-0.2) % Sodium Potassium Chloride Carbon Dioxide Anion Gap BUN Creatinine Estim Creat Clear Calc Estimated GFR Glucose Calcium Total Bilirubin 0.4 AST Cancelled 28 ALT Cancelled 12 Alkaline Phosphatase Cancelled Total Protein Albumin Lipase Beta HCG, Quant mIU/ML Urine Color (Yellow) Urine Appearance (Clear) Urine pH (5.0-9.0) Ur Specific [place] (1.001-1.035) Urine Protein (Negative) mg/dL Urine Glucose (UA) (Negative) mg/dL Urine Ketones (Negative) mg/dL Ur Blood (Man) (Negative) Urine Nitrate (Negative) Urine Bilirubin (Negative) Urine Urobilinogen (<2.0) mg/dL Leukocyte Esterase Rfl (Negative) MANDI/UL Urine RBC (0-2) /hpf Urine WBC (0-3) /hpf Ur Squamous Epith Cells (Few) /hpf Urine Bacteria /hpf Urine Casts 03/12/25 03/12/25 03/12/25 Range/Units 16:47 16:47 16:47 WBC (4.5-10.0) K/mm3 RBC (4.2-5.4) M/mm3 Hgb (12.0-15.0) g/dL Hct (37.0-47.0) % MCV (80-100) fl MCH (26-34) pg MCHC (32-36) g/dl RDW (11.5-14.5) % Plt Count (150-375) k/mm3 MPV (7.4-10.4) fl Immature Gran % (Auto) (0-0.5) % Neut % (Auto) (45.5-73.1) % Lymph % (Auto) (18.3-44.2) % [place] % (Auto) (2.6-8.5) % Eos % (Auto) (0-4.4) % Baso % (Auto) (0.2-1.2) % Lymph # (Auto) (0.9-3.2) K/mm3 [place] # (Auto) (0.1-0.6) K/mm3 Eos # (Auto) (0-0.3) K/mm3 Baso # (Auto) (0.0-0.1) K/mm3 Abs Immat Gran (auto) (0.00-0.031) K/mm3 Absolute Neuts (auto) (1.3-6.7) K/mm3 Absolute Nucleated RBC (0.0-0.012) K/mm3 Nucleated RBC % (0.0-0.2) % Sodium Potassium Chloride Carbon Dioxide Anion Gap BUN Creatinine Estim Creat Clear Calc Estimated GFR Glucose Calcium Total Bilirubin AST ALT Alkaline Phosphatase 88 Total Protein Cancelled 7.0 Albumin Cancelled 4.0 Lipase Cancelled Beta HCG, Quant mIU/ML Urine Color (Yellow) Urine Appearance (Clear) Urine pH (5.0-9.0) Ur Specific [place] (1.001-1.035) Urine Protein (Negative) mg/dL Urine Glucose (UA) (Negative) mg/dL Urine Ketones (Negative) mg/dL Ur Blood (Man) (Negative) Urine Nitrate (Negative) Urine Bilirubin (Negative) Urine Urobilinogen (<2.0) mg/dL Leukocyte Esterase Rfl (Negative) MANDI/UL Urine RBC (0-2) /hpf Urine WBC (0-3) /hpf Ur Squamous Epith Cells (Few) /hpf Urine Bacteria /hpf Urine Casts 03/12/25 Range/Units 16:47 WBC (4.5-10.0) K/mm3 RBC (4.2-5.4) M/mm3 Hgb (12.0-15.0) g/dL Hct (37.0-47.0) % MCV (80-100) fl MCH (26-34) pg MCHC (32-36) g/dl RDW (11.5-14.5) % Plt Count (150-375) k/mm3 MPV (7.4-10.4) fl Immature Gran % (Auto) (0-0.5) % Neut % (Auto) (45.5-73.1) % Lymph % (Auto) (18.3-44.2) % [place] % (Auto) (2.6-8.5) % Eos % (Auto) (0-4.4) % Baso % (Auto) (0.2-1.2) % Lymph # (Auto) (0.9-3.2) K/mm3 [place] # (Auto) (0.1-0.6) K/mm3 Eos # (Auto) (0-0.3) K/mm3 Baso # (Auto) (0.0-0.1) K/mm3 Abs Immat Gran (auto) (0.00-0.031) K/mm3 Absolute Neuts (auto) (1.3-6.7) K/mm3 Absolute Nucleated RBC (0.0-0.012) K/mm3 Nucleated RBC % (0.0-0.2) % Sodium Potassium Chloride Carbon Dioxide Anion Gap BUN Creatinine Estim Creat Clear Calc Estimated GFR Glucose Calcium Total Bilirubin AST ALT Alkaline Phosphatase Total Protein Albumin Lipase 83 Beta HCG, Quant 722207.00 mIU/ML Urine Color Yellow (Yellow) Urine Appearance Clear (Clear) Urine pH 8.0 (5.0-9.0) Ur Specific [place] 1.012 (1.001-1.035) Urine Protein Negative (Negative) mg/dL Urine Glucose (UA) Negative (Negative) mg/dL Urine Ketones Negative (Negative) mg/dL Ur Blood (Man) Negative (Negative) Urine Nitrate Negative (Negative) Urine Bilirubin Negative (Negative) Urine Urobilinogen 1.0 (<2.0) mg/dL Leukocyte Esterase Rfl 2+ H (Negative) AMNDI/UL Urine RBC 0-2 (0-2) /hpf Urine WBC 11-20 H (0-3) /hpf Ur Squamous Epith Cells Few (Few) /hpf Urine Bacteria Rare /hpf Urine Casts 0-2 <Jace Barragan MD - Last Filed: 03/12/25 21:44> Discharge Plan Discharge Clinical Impression: Urinary tract infection, Nausea & vomiting <Omar Stiles APRN - Last Filed: 03/12/25 16:47> Patient Disposition: Home <Omar Stiles APRN - Last Filed: 03/12/25 16:47> Condition: Stable <Omar Stiles APRN - Last Filed: 03/12/25 16:47> Instructions: Antibiotic Form, Nausea and Vomiting in (ED), Urinary Tract Infection in (ED) <Omar Stiles APRN - Last Filed: 03/12/25 16:47> Additional Instructions: Zofran as needed for nausea control. Clear liquid diet for the next 1-3 days. Antibiotic as directed until completed. If you have any worsening symptoms or are unable to keep your medications down please call or return to the emergency department. Have close follow-up with OB [facility]. <Omar Stiles APRN - Last Filed: 03/12/25 16:47> Patient Language: Jamaican <Omar Stiles APRN - Last Filed: 03/12/25 16:47> Prescriptions: New cephalexin 500 mg capsule 500 mg PO Q8H 7 Days Qty: 21 0RF ondansetron 4 mg tablet,disintegrating 4 mg PO Q8H PRN (Reason: nausea and vomiting) Qty: 14 0RF Discontinued nitrofurantoin monohyd/m-cryst [Macrobid] 100 mg capsule 100 mg PO Q12H 7 Days Qty: 14 0RF Rx Instructions: must administer with a meal/food No Action PNV no.95-ferrous fumarate-FA [] 28 mg iron- 800 mcg tablet 1 tablet PO BID drospirenone-ethinyl estradiol [JAJA (28)] 3-0.02 mg tablet 1 tablet PO DAILY Qty: 84 0RF <Omar Stiles APRN - Last Filed: 03/12/25 16:47> Follow-up/Referrals: PHYSICIAN,[employer]DER [Primary Care Provider, Internal Medicine] <Omar Stiles APRN - Last Filed: 03/12/25 16:47>
[2025-03-12 16:57] LABS: Hematocrit 38.7 % (37.0-47.0); Hemoglobin 13.3 g/dL (12.0-15.0); Immature Granulocyte Percent A 0.4 % (0-0.5); Lymphocytes Absolute Auto 2.42 K/mm3 (0.9-3.2); Mean Corpuscular HGB Conc 34.4 g/dl (32-36); Mean Corpuscular Hemoglobin 29.8 pg (26-34); Mean Corpuscular Volume 86.6 fl (80-100); Nucleated Red Blood Cells Absolute Auto 0.000 K/mm3 (0.0-0.012); Nucleated Red Blood Cells Perc 0.0 % (0.0-0.2); Platelet Count Result 297 k/mm3 (150-375); Red Blood Count 4.47 M/mm3 (4.2-5.4); White Blood Count 17.3 K/mm3 (4.5-10.0)
[2025-03-12 16:58] LABS: Add Urine Microscopic? YES; Appearance Urine Clear (Clear); Glucose Urine UA Negative (Negative); Leukocyte Esterase Ur 2+ LEU/UL (Negative); Nitrate Urine Negative (Negative); Non Pathogenic Casts 0-2; Specific Grav Ur 1.012 (1.001-1.035)
[2025-03-12 17:08] LABS: Alanine Aminotransferase 12 U/L (6-35); Albumin Level 4.0 g/dL (3.5-5.1); Alkaline Phosphatase 88 U/L (38-126); Anion Gap 9 mmol/L (4-12); Aspartate Amino Transferase 28 U/L (14-36); Bilirubin,Total 0.4 mg/dL (0.2-1.3); Blood Urea Nitrogen 8 mg/dL (7-17); Calcium 8.8 mg/dL (8.4-10.2); Carbon Dioxide 22 mmol/L (22-30); Chloride 104 mmol/L (98-107); Estimated CRCL calculation 136 ml/min; Estimated Glomerular Filt Rate > 60; Glucose 93 mg/dL (65-110); Lipase 83 U/L (23-300); Potassium 4.0 mmol/L (3.4-5.0); Sodium 135 mmol/L (137-145); Total Protein 7.0 g/dL (6.3-8.2)
[2025-03-12 17:53] LABS: Beta HCG Quantitative 175810.00 mIU/ML
[2025-03-12 18:47] VITALS: BP 116/66; PULSE 99; RESP 14; TEMP 36.8; O2SAT 100
[2025-03-12] MEDS: cefTRIAXone 1 GM in SODIUM CHLORIDE 0.9% IV 50 ML 100 ML IVPB (19:10)
[2025-03-12] MEDS: ONDANSETRON INJ 4 MG/2 ML VIAL IV PUSH (19:10)
[2025-03-12] MEDS: LACTATED RINGERS 1,000 ML 999 ML IV CONT (19:18)
[2025-03-12] MEDS: ACETAMINOPHEN 500 MG TABLET 1000 MG PO (21:35)
[2025-03-12 21:47] VITALS: BP 113/67; PULSE 105; RESP 18; O2SAT 100
== END 2025-03-12 21:48 | disposition home or self-care (01) ==
PROVIDERS: Nurse Practitioner Family; Emergency Provider Emergency Medicine
DX: O23.41 Unspecified infection of urinary tract in pregnancy, first trimester (principal); N39.0 Urinary tract infection, site not specified; Z3A.08 8 weeks gestation of pregnancy
CPT/HCPCS: 36415; 80053; 81001; 83690; 84702; 85025; 87086; 96365; 96375; 99284; A9270; J0696; J2405; J7120

== ENCOUNTER 2025-03-29 13:12 | Emergency (ER) | payer OTHER, MEDICAID, SELFPAY ==
[2025-03-29] VITALS (7 sets, daily range): BP systolic 110–135; BP diastolic 57–91; PULSE 85–112; RESP 16–24; TEMP 36.8–36.9; O2SAT 97–100
--- NOTE | ~2025-03-29 | US_ITS ---
US abdomen limited Indication: right lower quadrant pain in , eval appi Comparison: None Technique: Monroe-scale and color Doppler images were obtained. Findings: The appendix is not identified. There is no dilated bowel, no free fluid identified. IMPRESSION: Appendix not identified Reviewed, dictated and finalized at location P. [facility] ASSOCIATE IMPRESSION: Appendix not identified
--- NOTE | ~2025-03-29 | US_ITS ---
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 Findings: Uterus anteverted 10.6 x 6.4 x 9.4 cm. Single live intrauterine gestational sac identified with pole measuring 3.3 cm corresponding to 10 weeks and 1 day, heart rate 171, yolk sac is identified. There is a small subchorionic hemorrhage measuring 3.3 x 2.1 x 0.8 cm. Right ovary 2.6 x 1.6 x 2.6 cm, left ovary 2.6 x 2.3 x 2.9 cm, no adnexal mass, normal flow. IMPRESSION: Single live intrauterine . Small subchorionic hemorrhage Reviewed, dictated and finalized at location P. TRICAL SUPERVISOR
[2025-03-29 13:50] LABS: BEDSIDEPREGUCG Positive (Negative)
[2025-03-29 13:53] LABS: Hematocrit 39.8 % (37.0-47.0); Hemoglobin 13.6 g/dL (12.0-15.0); Immature Granulocyte Percent A 0.6 % (0-0.5); Lymphocytes Absolute Auto 2.19 K/mm3 (0.9-3.2); Mean Corpuscular HGB Conc 34.2 g/dl (32-36); Mean Corpuscular Hemoglobin 29.2 pg (26-34); Mean Corpuscular Volume 85.6 fl (80-100); Nucleated Red Blood Cells Absolute Auto 0.000 K/mm3 (0.0-0.012); Nucleated Red Blood Cells Perc 0.0 % (0.0-0.2); Platelet Count Result 276 k/mm3 (150-375); Red Blood Count 4.65 M/mm3 (4.2-5.4); White Blood Count 15.2 K/mm3 (4.5-10.0)
[2025-03-29 13:59] LABS: Add Urine Microscopic? YES; Appearance Urine Cloudy (Clear); Glucose Urine UA Negative (Negative); Leukocyte Esterase Ur Negative LEU/UL (Negative); Nitrate Urine Negative (Negative); Specific Grav Ur 1.028 (1.001-1.035)
[2025-03-29 14:08] LABS: Alanine Aminotransferase 13 U/L (6-35); Albumin Level 3.9 g/dL (3.5-5.1); Alkaline Phosphatase 87 U/L (38-126); Anion Gap 6 mmol/L (4-12); Aspartate Amino Transferase 27 U/L (14-36); Bilirubin,Total 0.4 mg/dL (0.2-1.3); Blood Urea Nitrogen 6 mg/dL (7-17); Calcium 8.7 mg/dL (8.4-10.2); Carbon Dioxide 21 mmol/L (22-30); Chloride 107 mmol/L (98-107); Estimated CRCL calculation 129 ml/min; Estimated Glomerular Filt Rate > 60; Glucose 96 mg/dL (65-110); Lipase 88 U/L (23-300); Potassium 3.9 mmol/L (3.4-5.0); Sodium 134 mmol/L (137-145); Total Protein 6.9 g/dL (6.3-8.2)
[2025-03-29] MEDS: SODIUM CHLORIDE 0.9% IV 1,000 ML 999 ML IV CONT ×2 (14:55→17:59)
[2025-03-29] MEDS: ONDANSETRON INJ 4 MG/2 ML VIAL 8 MG IV PUSH (14:55)
[2025-03-29] MEDS: MORPHINE SULFATE (*CRX) 4 MG/ML INJ 2 MG IV PUSH (14:59)
--- NOTE | 2025-03-29 15:41 | ED_ITS ---
HPI - General Adult General Chief complaint: Nausea/Vomiting/Diarrhea Stated complaint: 10 weeks with n/v/d Time Seen by Provider: 03/29/25 14:05 History of Present Illness HPI narrative: 19-year-old female presenting with nausea/vomiting / diarrhea. Patient states area has been ongoing for last 5 days accompanied by severe diffuse abdominal pain and nausea /vomiting that began today. Patient is 10 weeks . She denies melena/hematochezia, fevers/chills, chest pain/ shortness of breath, or any vaginal complaints. Sees Dr. Samson with OBGYN. Related Data Home Medications ?Medication ?Instructions ?Recorded ?Confirmed ?Last Taken ?Type vit no.95-ferrous 1 tablet PO BID 06/18/2408/27/24 08:00 History fumarate 28 mg-folic acid 800 mcg tablet () Allergies Allergy/AdvReac Type Severity Reaction Status Date / Time levonorgestrel (From Plan B) Allergy Mild Itching Verified 03/29/25 13:38 Review of Systems 2 Review of Systems: All systems reviewed & are unremarkable except as noted in HPI and below PMFSH Past Medical History Medical History HSV-2 infection HSV-1 infection UTI (urinary tract infection) Irregular periods Skin lesion Pancreatitis Family History Family History Grandparent Cancer of kidney paternal grandmother Social History Social History Smoking status: Never smoker Second hand tobacco smoke exposure: Yes Alcohol intake: never Substance use: never Substance use type: does not use Do You Feel Safe in your Home?: Yes Lack of Transportation: No Lack of Food: Never True Current Housing: I Have Housing Concerned About Future Housing: No Difficulty Paying Gas/Electric Bills: No Difficulty Paying for Meds: No Currently Unemployed: No Education: High School Diploma/GED Difficulty w/ Childcare or Family Care: No Living arrangements: with family Additional living arrangements comments: lives with parents Occupation/Education: occupation 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 HEAD: Normocephalic, atraumatic. EYES: PERRLA and EOMI. ENT: Nares clear, no rhinorrhea or epistaxis. Mucous membranes moist. Oropharynx without tonsillar hypertrophy exudate or other lesions. Bilateral TMs pearly lacey non-bulging NECK: Supple. No adenopathy or masses. No carotid bruits or JVD CHEST: Clear to auscultation. No respiratory distress. No wheezes rales or rhonchi. HEART: Tachycardic. Normal rhythm. No murmur heard. Normal peripheral pulses. ABDOMEN: Diffuse tenderness, normal active bowel sounds. EXTREMITIES: Normal range of motion. No edema. SKIN: Warm and diaphoretic. No rash. NEURO: No focal deficits. Alert and oriented x3. PSYCH: Normal mood and affect Course Vital Signs Vital signs: Vital Signs Temperature 98.4 F 03/29/25 13:34 Pulse Rate 107 H 03/29/25 13:34 Respiratory Rate 19 03/29/25 13:34 Blood Pressure 135/91 H 03/29/25 13:34 Pulse Oximetry 97 03/29/25 13:34 Oxygen Delivery Room Air 03/29/25 13:34 Temperature 98.4 F 03/29/25 13:34 Pulse Rate 85 03/29/25 15:03 Respiratory Rate 20 03/29/25 15:03 Blood Pressure 116/73 03/29/25 15:03 Pulse Oximetry 100 03/29/25 15:03 Oxygen Delivery Room Air 03/29/25 13:34 Medical Decision Making [facility] Narrative Medical decision making narrative: 19-year-old female presenting with nausea/vomiting / diarrhea. Patient states diarrhea has been ongoing for last 5 days accompanied by severe diffuse abdominal pain and nausea /vomiting that began today. Patient is 10 weeks . She denies melena/hematochezia, fevers/chills, chest pain/ shortness of breath, or any vaginal complaints. Sees Dr. Samson for OBGYN. Upon my initial exam patient appears uncomfortable, is tachycardic, and is vomiting in the room. She reports diffuse abdominal pain. Administered morphine, Zofran, and 2 L NS. Patient endorsed mild improvement however she continues to vomit. Administered Phenergan which improved her symptoms. Patient then reported her abdominal pain was localized epigastric. Given GI cocktail with improvement. Upon my reassessment patient is reporting severe right lower quadrant pain. ultrasound demonstrated heart tones. Abdominal ultrasound unable to visualize the appendix. Consulted Dr. Borrero with OBGYN who noted that we do not have MRI at this time and that she needed to be transferred in order to obtain an MRI to rule out appendicitis. Patient remains uncomfortable and tachycardic. Given Dilaudid with improvement in pain but endorses that she still does not feel good. Spoke with hospitalist Dr. Garrett at [facility] who accepted the patient on behalf of admitting physician Dr. Diaz for direct admit. Started patient on Zosyn. Pending transfer. Patient is stable. Medical Records Medical records reviewed: Yes I reviewed the external patient's medical records. Vital Signs Vital Signs: Vital Signs Temperature 98.4 F 03/29/25 13:34 Pulse Rate 107 H 03/29/25 13:34 Respiratory Rate 19 03/29/25 13:34 Blood Pressure 135/91 H 03/29/25 13:34 Pulse Oximetry 97 03/29/25 13:34 Oxygen Delivery Room Air 03/29/25 13:34 Temperature 98.4 F 03/29/25 13:34 Pulse Rate 85 03/29/25 15:03 Respiratory Rate 20 03/29/25 15:03 Blood Pressure 116/73 03/29/25 15:03 Pulse Oximetry 100 03/29/25 15:03 Oxygen Delivery Room Air 03/29/25 13:34 Lab Data Lab results reviewed: Yes I reviewed the patient's lab results. 03/29/25 13:46 03/29/25 13:46 Labs: Lab Results 03/29/25 03/29/25 03/29/25 Range/Units 13:45 13:46 15:03 WBC 15.2 H (4.5-10.0) K/mm3 RBC 4.65 (4.2-5.4) M/mm3 Hgb 13.6 (12.0-15.0) g/dL Hct 39.8 (37.0-47.0) % MCV 85.6 (80-100) fl MCH 29.2 (26-34) pg MCHC 34.2 (32-36) g/dl RDW 12.7 (11.5-14.5) % Plt Count 276 (150-375) k/mm3 MPV 9.3 (7.4-10.4) fl Immature Gran % (Auto) 0.6 H (0-0.5) % Neut % (Auto) 79.0 H (45.5-73.1) % Lymph % (Auto) 14.4 L (18.3-44.2) % [place] % (Auto) 5.3 (2.6-8.5) % Eos % (Auto) 0.5 (0-4.4) % Baso % (Auto) 0.2 (0.2-1.2) % Lymph # (Auto) 2.19 (0.9-3.2) K/mm3 [place] # (Auto) 0.8 H (0.1-0.6) K/mm3 Eos # (Auto) 0.1 (0-0.3) K/mm3 Baso # (Auto) 0.0 (0.0-0.1) K/mm3 Abs Immat Gran (auto) 0.09 H (0.00-0.031) K/mm3 Absolute Neuts (auto) 12.0 H (1.3-6.7) K/mm3 Absolute Nucleated RBC 0.000 (0.0-0.012) K/mm3 Nucleated RBC % 0.0 (0.0-0.2) % Sodium 134 L (137-145) mmol/L Potassium 3.9 (3.4-5.0) mmol/L Chloride 107 (98-107) mmol/L Carbon Dioxide 21 L (22-30) mmol/L Anion Gap 6 (4-12) mmol/L BUN 6 L (7-17) mg/dL Creatinine 0.57 L (0.7-1.0) mg/dL Estim Creat Clear Calc 129 ml/min Estimated GFR > 60 (59 - ) Glucose 96 (65-110) mg/dL Calcium 8.7 (8.4-10.2) mg/dL Total Bilirubin 0.4 (0.2-1.3) mg/dL AST 27 (14-36) U/L ALT 13 (6-35) U/L Alkaline Phosphatase 87 (38-126) U/L Total Protein 6.9 (6.3-8.2) g/dL Albumin 3.9 (3.5-5.1) g/dL Lipase 88 (23-300) U/L Urine Color Yellow (Yellow) Urine Appearance Cloudy H (Clear) Urine pH 5.0 (5.0-9.0) Ur Specific [place] 1.028 (1.001-1.035) Urine Protein 1+ H (Negative) mg/dL Urine Glucose (UA) Negative (Negative) mg/dL Urine Ketones Trace H (Negative) mg/dL Ur Blood (Man) Negative (Negative) Urine Nitrate Negative (Negative) Urine Bilirubin Negative (Negative) Urine Urobilinogen 1.0 (<2.0) mg/dL Leukocyte Esterase Rfl Negative (Negative) MANDI/UL Urine RBC 0-2 (0-2) /hpf Urine WBC 0-5 (0-3) /hpf Ur Squamous Epith Cells Moderate (Few) /hpf Urine Bacteria Rare /hpf Urine Casts 3-5 POC Urine HCG, Qual Positive (Negative) Influenza A (RT-PCR) Pending Influenza B (RT-PCR) Pending RSV (RT-PCR) Pending SARS-CoV-2 RNA (RT-PCR) Pending Imaging Data Attestation: I personally reviewed and interpreted this imaging study as follows: Radiologist's impression: ITS Impressions Ultrasound 03/29/25 19:55 IMPRESSION: Single live intrauterine . Small subchorionic hemorrhage Abdomen Ultrasound 03/29/25 19:57 IMPRESSION: Appendix not identified Discharge Plan Discharge Clinical Impression: Abdominal pain during intrauterine Patient Disposition: Acute Care Hospital Condition: Stable Patient Language: Lao Prescriptions: No Action cephalexin 500 mg capsule 500 mg PO Q8H 7 Days Qty: 21 0RF ondansetron 4 mg tablet,disintegrating 4 mg PO Q8H PRN (Reason: nausea and vomiting) Qty: 14 0RF PNV no.95-ferrous fumarate-FA [] 28 mg iron- 800 mcg tablet 1 tablet PO BID Follow-up/Referrals: PHYSICIAN,[employer] [facility] [Primary Care Provider, Internal Medicine]
[2025-03-29 15:44] LABS: Influenza A QL RT-PCR Negative (Negative); Influenza B QL RT-PCR Negative (Negative); RSV RNA, RT-PCR Negative (Negative); SARS-CoV-2 RNA PCR Negative (Negative)
[2025-03-29] MEDS: PROMETHAZINE HCL 25 MG/ML AMPUL 12.5 MG IV PUSH (16:02)
[2025-03-29] MEDS: MAG HYDROX/AL HYDROX/SIMETH 30 ML UDC PO (17:59)
[2025-03-29] MEDS: ACETAMINOPHEN 325 MG TABLET 650 MG PO (21:14)
[2025-03-29] MEDS: HYDROmorphone HCL INJ (*CRX) 1 MG/ML SYR 0.5 MG IV PUSH (21:14)
[2025-03-29] MEDS: PIPERACILLIN/TAZOBACTAM SOD 3.375 GM in SODIUM CHLORIDE 0.9% IV 50 ML 100 ML IVPB (21:46)
--- NOTE | 2025-03-29 22:55 | PC.NURSE ---
Number to call report to [facility] [phone]
[2025-03-30] MEDS: HYDROmorphone HCL INJ (*CRX) 1 MG/ML SYR 0.5 MG IV PUSH (03:39)
== END 2025-03-30 03:41 | disposition short-term general hospital (02) ==
PROVIDERS: Emergency Medicine
DX: O26.891 Other specified pregnancy related conditions, first trimester (principal); R10.9 Unspecified abdominal pain; Z3A.10 10 weeks gestation of pregnancy
CPT/HCPCS: 36415; 76705; 76801; 80053; 81001; 81025; 83690; 85025; 87637; 96361; 96365; 96374; 96375; 99285; A9270; J1171; J2270; J2405; J2543; J2550; J7030

== ENCOUNTER 2025-04-23 10:39 | Outpatient (CLI) | payer OTHER, MEDICAID, SELFPAY ==
[2025-04-23 11:28] LABS: Hematocrit 39.4 % (37.0-47.0); Hemoglobin 13.4 g/dL (12.0-15.0); Immature Granulocyte Percent A 0.4 % (0-0.5); Lymphocytes Absolute Auto 3.30 K/mm3 (0.9-3.2); Mean Corpuscular HGB Conc 34.0 g/dl (32-36); Mean Corpuscular Hemoglobin 29.5 pg (26-34); Mean Corpuscular Volume 86.6 fl (80-100); Nucleated Red Blood Cells Absolute Auto 0.000 K/mm3 (0.0-0.012); Nucleated Red Blood Cells Perc 0.0 % (0.0-0.2); Platelet Count Result 279 k/mm3 (150-375); Red Blood Count 4.55 M/mm3 (4.2-5.4); White Blood Count 11.1 K/mm3 (4.5-10.0)
[2025-04-23 12:16] LABS: Syphilis IgG/IgM Antibody Non-Reactive (Nonreactive)
[2025-04-23 12:20] LABS: Hepatitis B Surface Antigen Negative (Negative)
[2025-04-23 12:29] LABS: HIV 1/2 Ab P24 Ag Result Negative (Negative)
[2025-04-24 07:09] LABS: Cytomegalovirus (CMV) Ab, IgG 9.10 U/mL (0.00-0.59); Varicella-Zoster Ab, IgG Reactive (Non Reactive)
[2025-04-29 11:08] LABS: Parvovirus B19, IgG 6.6 index (0.0-0.8); Parvovirus B19, IgM 0.2 index (0.0-0.8)
== END 2025-04-23 10:40 | disposition home or self-care (01) ==
PROVIDERS: Visit Provider Obstetrics & Gynecology
DX: Z34.90 Encounter for supervision of normal pregnancy, unspecified, unspecified trimester (principal); Z3A.00 Weeks of gestation of pregnancy not specified
CPT/HCPCS: 36415; 85025; 86593; 86644; 86703; 86747; 86762; 86787; 86850; 86900; 86901; 87086; 87340; G0432